=== PATIENT | male | born 1925 | race Caucasian/White ===

== ENCOUNTER 2017-01-24 11:17 | Emergency (ER) | payer MEDICARE ==
[2017-01-24 11:29] VITALS: RESP 18
[2017-01-24] MEDS ORDERED: SODIUM CHLORIDE 0.9% 1,000 ML IV STA (12:09)
[2017-01-24] MEDS ORDERED: MECLIZINE 12.5 MG TAB PO STA (12:10)
--- NOTE | 2017-01-24 12:13 | ED ---
General Adult HPI - General Chief complaint: Dizziness Stated complaint: Dizziness Time Seen by Provider: 01/24/17 11:35 Source: patient, family, RN notes reviewed Mode of arrival: wheelchair Limitations: no limitations - History of Present Illness Initial comments: Patient is a pleasant 89-year-old male presenting to the emergency department complaining of dizziness. Onset was this morning when he got out of bed. Patient feels lightheaded. Patient feels somewhat off balance. Patient has had some mild right-sided thorax discomfort underneath the armpit. Patient states this is only with movement. No dyspnea. No fevers. Patient did have some right inguinal discomfort this morning that was a shooting discomfort however that has resolved. No weakness. No confusion. No visual changes. No fever. - Related Data Home Medications Medication Instructions Recorded Confirmed Acetaminophen-Codeine 300-30mg 1 tab PO Q6H PRN 01/24/17 01/24/17 [Tylenol #3] Atorvastatin [Lipitor] 20 mg PO HS 01/24/17 01/24/17 HYDROcodone/APAP 5-325MG [[place] 1 tab PO TID PRN 01/24/17 01/24/17 5-325] Melatonin 5 mg PO HS 01/24/17 01/24/17 Oxybutynin Chloride [Ditropan] 5 mg PO HS 01/24/17 01/24/17 Valsartan [Diovan] 80 mg PO DAILY 01/24/17 01/24/17 metFORMIN HCL [Glucophage] 1,000 mg PO BID 01/24/17 01/24/17 Previous Rx's Medication Instructions Recorded Meclizine [Antivert] 25 mg PO TID PRN #12 tab 01/24/17 Allergies Allergy/AdvReac Type Severity Reaction Status Date / Time aspirin Allergy Rash/Hives Verified 01/24/17 12:33 Penicillins Allergy Rash/Hives Verified 01/24/17 12:33 Review of Systems ROS Statement: Those systems with pertinent positive or pertinent negative responses have been documented in the HPI. ROS Other: All systems not noted in ROS Statement are negative. Constitutional: Denies: fever Eyes: Denies: eye pain ENT: Denies: ear pain Respiratory: Denies: cough Cardiovascular: Denies: palpitations Endocrine: Denies: fatigue Gastrointestinal: Denies: abdominal pain Genitourinary: Denies: urgency Musculoskeletal: Denies: back pain Skin: Denies: rash Neurological: Reports: vertigo. Denies: headache, weakness, numbness, paresthesias, confusion Past Medical History Past Medical History: Cancer, Diabetes Mellitus, Hyperlipidemia, Hypertension, Prostate Disorder History of Any Multi-Drug Resistant Organisms: None Reported Past Surgical History: Back Surgery, Hernia Repair Additional Past Surgical History / Comment(s): yumi eye surgery, Past Psychological History: No Psychological Hx Reported Smoking Status: Former smoker Past Alcohol Use History: None Reported Past Drug Use History: None Reported General Exam Limitations: no limitations General appearance: alert, in no apparent distress Head exam: Present: atraumatic Eye exam: Present: PERRL, EOMI. Absent: nystagmus ENT exam: Present: normal oropharynx Neck exam: Present: normal inspection Respiratory exam: Present: normal lung sounds bilaterally. Absent: chest wall tenderness Cardiovascular Exam: Present: regular rate, normal rhythm GI/Abdominal exam: Present: soft, other (Patient has minimal fullness to the right inguinal region that is reducible. Patient states this was the area of discomfort.). Absent: distended, tenderness Extremities exam: Present: normal inspection, full ROM. Absent: tenderness, pedal edema, calf tenderness Neurological exam: Present: alert, CN II-XII intact. Absent: motor sensory deficit Expanded Speech: Present: fluid speech Cranial nerves: EOM's Intact: Normal, Facial Sensation: Normal Sensory exam: Upper Extremity Light Touch: Normal, Lower Extremity Light Touch: Normal Motor strength exam: RUE: 5, LUE: 5, RLE: 5, LLE: 5 Eye Response: (4) open spontaneously Motor Response: (6) obeys commands Verbal Response: (5) oriented Psychiatric exam: Present: normal affect, normal mood Skin exam: Absent: rash Course Vital Signs 01/24/17 01/24/17 01/24/17 11:24 12:16 12:43 Temperature 97.9 F Pulse Rate 70 70 Pulse Rate [ 76 Sitting] Pulse Rate [ 78 Standing] Pulse Rate [ 71 Supine] Respiratory 18 18 Rate Blood Pressure 144/64 133/60 Blood Pressure 124/59 [Right Arm Supine] Blood Pressure 124/63 [Sitting] Blood Pressure 131/63 [Standing] O2 Sat by Pulse 97 97 Oximetry 01/24/17 13:37 Temperature Pulse Rate 66 Pulse Rate [ Sitting] Pulse Rate [ Standing] Pulse Rate [ Supine] Respiratory Rate Blood Pressure 122/66 Blood Pressure [Right Arm Supine] Blood Pressure [Sitting] Blood Pressure [Standing] O2 Sat by Pulse 97 Oximetry - Reevaluation(s) Reevaluation #1: 01/24/17 14:43 Perc score of 1 showing low probability EKG Findings - EKG Comments: EKG Findings:: Normal sinus rhythm 74. Normal intervals. Normal axis. Normal QRS. Normal ST-T. Medical Decision Making - Medical Decision Making Patient reevaluated and resting comfortably in bed. Patient symptom-free at this time. Patient did get up and walk to the restroom without any difficulty. Patient did demonstrate steady gait in the emergency Department as well. Patient and family updated on results and need for follow-up. Case was also discussed in detail with Dr. Hadley who is agreeable with discharge and will follow-up with this patient. - Lab Data Result diagrams: 01/24/17 12:00 01/24/17 12:00 Lab Results 01/24/17 01/24/17 01/24/17 Range/Units 12:00 12:00 12:00 WBC 5.6 (3.8-10.6) k/uL RBC 3.69 L (4.30-5.90) m/uL Hgb 11.3 L (13.0-17.5) gm/dL Hct 35.4 L (39.0-53.0) % MCV 95.9 (80.0-100.0) fL MCH 30.6 (25.0-35.0) pg MCHC 31.9 (31.0-37.0) g/dL RDW 13.3 (11.5-15.5) % Plt Count 149 L (150-450) k/uL Neutrophils % 60 % Lymphocytes % 27 % Monocytes % 8 % Eosinophils % 2 % Basophils % 1 % Neutrophils # 3.4 (1.3-7.7) k/uL Lymphocytes # 1.5 (1.0-4.8) k/uL Monocytes # 0.5 (0-1.0) k/uL Eosinophils # 0.1 (0-0.7) k/uL Basophils # 0.0 (0-0.2) k/uL PT 10.8 (9.0-12.0) sec INR 1.1 (<1.1) Sodium 141 (137-145) mmol/L Potassium 4.5 (3.5-5.1) mmol/L Chloride 103 (98-107) mmol/L Carbon Dioxide 27 (22-30) mmol/L Anion Gap 11 mmol/L BUN 26 H (9-20) mg/dL Creatinine 0.99 (0.66-1.25) mg/dL Est GFR (MDRD) Af Amer >60 (>60 ml/min/1.73 sqM) Est GFR (MDRD) Non-Af >60 (>60 ml/min/1.73 sqM) Glucose 187 H (74-99) mg/dL Calcium 8.9 (8.4-10.2) mg/dL Total Bilirubin 0.4 (0.2-1.3) mg/dL AST 7 L (17-59) U/L ALT 28 (21-72) U/L Alkaline Phosphatase 44 (38-126) U/L Troponin I (0.000-0.034) ng/mL Total Protein 6.5 (6.3-8.2) g/dL Albumin 3.7 (3.5-5.0) g/dL Urine Color Urine Appearance (Clear) Urine pH (5.0-8.0) Ur Specific [place] (1.001-1.035) Urine Protein (Negative) Urine Glucose (UA) (Negative) Urine Ketones (Negative) Urine Blood (Negative) Urine Nitrite (Negative) Urine Bilirubin (Negative) Urine Urobilinogen (<2.0) mg/dL Ur Leukocyte Esterase (Negative) Urine RBC (0-5) /hpf Urine WBC (0-5) /hpf Urine Mucus (None) /hpf 01/24/17 01/24/17 Range/Units 12:00 12:00 WBC (3.8-10.6) k/uL RBC (4.30-5.90) m/uL Hgb (13.0-17.5) gm/dL Hct (39.0-53.0) % MCV (80.0-100.0) fL MCH (25.0-35.0) pg MCHC (31.0-37.0) g/dL RDW (11.5-15.5) % Plt Count (150-450) k/uL Neutrophils % % Lymphocytes % % Monocytes % % Eosinophils % % Basophils % % Neutrophils # (1.3-7.7) k/uL Lymphocytes # (1.0-4.8) k/uL Monocytes # (0-1.0) k/uL Eosinophils # (0-0.7) k/uL Basophils # (0-0.2) k/uL PT (9.0-12.0) sec INR (<1.1) Sodium (137-145) mmol/L Potassium (3.5-5.1) mmol/L Chloride (98-107) mmol/L Carbon Dioxide (22-30) mmol/L Anion Gap mmol/L BUN (9-20) mg/dL Creatinine (0.66-1.25) mg/dL Est GFR (MDRD) Af Amer (>60 ml/min/1.73 sqM) Est GFR (MDRD) Non-Af (>60 ml/min/1.73 sqM) Glucose (74-99) mg/dL Calcium (8.4-10.2) mg/dL Total Bilirubin (0.2-1.3) mg/dL AST (17-59) U/L ALT (21-72) U/L Alkaline Phosphatase (38-126) U/L Troponin I <0.012 (0.000-0.034) ng/mL Total Protein (6.3-8.2) g/dL Albumin (3.5-5.0) g/dL Urine Color Light Yellow Urine Appearance Clear (Clear) Urine pH 5.0 (5.0-8.0) Ur Specific [place] 1.009 (1.001-1.035) Urine Protein Negative (Negative) Urine Glucose (UA) 1+ H (Negative) Urine Ketones Negative (Negative) Urine Blood Negative (Negative) Urine Nitrite Negative (Negative) Urine Bilirubin Negative (Negative) Urine Urobilinogen <2.0 (<2.0) mg/dL Ur Leukocyte Esterase Small H (Negative) Urine RBC <1 (0-5) /hpf Urine WBC 3 (0-5) /hpf Urine Mucus Rare H (None) /hpf - Radiology Data Radiology results: image reviewed (Computed tomography scan shows no acute process. Two-view chest x-ray shows asbestosis related disease.) Disposition Clinical Impression: Lightheadedness Disposition: HOME SELF-CARE Condition: Stable Instructions: Dizziness (ED) Additional Instructions: Please follow-up with Dr. Hadley in the next day or 2 for recheck. Return for difficulty breathing, increased pain, unable to walk, weakness or confusion , worsening symptoms or other concerns. Prescriptions: Meclizine [Antivert] 25 mg PO TID PRN #12 tab PRN Reason: dizziness Referrals: Venu Hadley MD [Primary Care Provider] - 1-2 days
[2017-01-24 12:20] LABS: Basophils % (A) 1 %; CH 30.6; CHCM 32.1; Eosinophils # (A) 0.1 k/uL (0-0.7); Eosinophils % (A) 2 %; HCT 35.4 % (39.0-53.0); HDW 2.46; HGB 11.3 gm/dL (13.0-17.5); Luc # (Auto) 0.13; Luc % (Auto) 2; Lymphocytes # (A) 1.5 k/uL (1.0-4.8); Lymphocytes % (A) 27 %; MCH 30.6 pg (25.0-35.0); MCHC 31.9 g/dL (31.0-37.0); MCV 95.9 fL (80.0-100.0); Mean Platelet Volume 10.2; Monocytes # (A) 0.5 k/uL (0-1.0); Monocytes % (A) 8 %; Neutrophils # (A) 3.4 k/uL (1.3-7.7); Neutrophils % (A) 60 %; RBC 3.69 m/uL (4.30-5.90); RDW 13.3 % (11.5-15.5); WBC 5.6 k/uL (3.8-10.6); WBC (Perox) 5.33
[2017-01-24 12:25] LABS: INR 1.1 (<1.1); Prothrombin Time 10.8 sec (9.0-12.0)
[2017-01-24 12:44] LABS: ALT 28 U/L (21-72); AST 7 U/L (17-59); Alkaline Phosphatase 44 U/L (38-126); Anion Gap 11 mmol/L; Blood Urea Nitrogen 26 mg/dL (9-20); Calcium 8.9 mg/dL (8.4-10.2); Carbon Dioxide 27 mmol/L (22-30); Chloride 103 mmol/L (98-107); Glucose 187 mg/dL (74-99); Non-African American GFR(MDRD) >60 (>60 ml/min/1.73 sqM); Potassium 4.5 mmol/L (3.5-5.1); Sodium 141 mmol/L (137-145); Total Bilirubin 0.4 mg/dL (0.2-1.3); Total Protein 6.5 g/dL (6.3-8.2)
[2017-01-24 12:46] LABS: Appearance,Urine Clear (Clear); Bilirubin,Urine Negative (Negative); Glucose,Urine (UA) 1+ (Negative); Ketones,Urine Negative (Negative); Leukocyte Esterase,Urine Small (Negative); Mucus,Urine Rare /hpf; Nitrite,Urine Negative (Negative); Particle Count 623; Protein,Urine Negative (Negative); RBC,Urine <1 /hpf (0-5); Specific Gravity,Urine 1.009 (1.001-1.035); UA Billing (MACRO vs. MICRO) MICRO; Urobilinogen,Urine <2.0 mg/dL (<2.0); WBC,Urine 3 /hpf (0-5)
--- NOTE | 2017-01-24 12:46 | CT ---
EXAMINATION TYPE: CT brain wo con DATE OF EXAM: 01/24/2017 12:35 PM COMPARISON: Prior head CT second of May 2011 HISTORY: Altered mental status CT DLP: 1024.1 mGycm Automated exposure control for dose reduction was used. FINDINGS: There is no acute intracranial hemorrhage, mass effect, or midline shift identified. The ventricles and sulci are within normal limits in size. Periventricular white matter demyelination changes are a gain seen. Cortical atrophy is stable. The globes are intact and the visualized sinuses are clear. IMPRESSION: No acute intracranial hemorrhage, mass effect, or midline shift is seen.
--- NOTE | 2017-01-24 12:51 | XR ---
EXAMINATION TYPE: XR chest 2V DATE OF EXAM: 01/24/2017 12:40 PM COMPARISON: Chest CT July HISTORY: Chest pain, Asbestosis TECHNIQUE: Frontal and lateral views of the chest are obtained. FINDINGS: Extensive calcified pleural plaques are again noted. No pneumothorax or pleural effusion i s evident. Heart size is stable. No evident pneumonia, postop change noted to the left shoulder, arth ropathy the right shoulder and there are overlying cardiac leads, IMPRESSION: Asbestos related disease.
[2017-01-24 15:07] VITALS: BP 136/62; PULSE 70; TEMP 97.4
== END 2017-01-24 15:05 | disposition home or self-care (01) ==
LOC: EC 11:17
DX: R42 Dizziness and giddiness (principal); E11.9 Type 2 diabetes mellitus without complications; E78.5 Hyperlipidemia, unspecified; I10 Essential (primary) hypertension; N42.9 Disorder of prostate, unspecified; Z85.9 Personal history of malignant neoplasm, unspecified; Z88.6 Allergy status to analgesic agent; Z88.0 Allergy status to penicillin; Z87.891 Personal history of nicotine dependence; Z79.84 Long term (current) use of oral hypoglycemic drugs; Z79.899 Other long term (current) drug therapy
CPT/HCPCS: 36415; 70450; 71020; 80053; 81001; 84484; 85025; 85610; 93005; 96360; 96361; 99284

== ENCOUNTER → 2017-01-26 | Outpatient (CLI) | payer MEDICARE ==
--- NOTE | 2017-01-26 15:55 | CT ---
EXAMINATION TYPE: CT chest w con DATE OF EXAM: 01/26/2017 3:47 PM COMPARISON: 07/14/2013 HISTORY: Chest discomfort CT DLP: 514.2 mGycm, Automated exposure control for dose reduction was used. CONTRAST: Performed injected with 100 mL of Omnipaque 300. TECHNIQUE: Axial images were obtained at 5 mm thick sections. Reconstructed images are reviewed on [place] computer in the coronal plane. Artifact limits portions of the evaluation from a left shoulder prosthesis. FINDINGS: Portion of the thyroid visualized is normal. There is some streak opacity within the lingula. This appears to be near pleural plaquing and could b e related to scarring. This was present 2012. Calcifications along the right diaphragm compatible wit h asbestos exposure. A 1.4 cm subcarinal lymph node is present adjacent to the aorta. Note is made of coronary artery jarod cification. Pleural plaquing is present bilaterally. No enlarged mediastinal or hilar adenopathy is e vident. The ascending aorta diameter at the level of the main pulmonary artery is 3.5 cm. The main p ulmonary artery diameter at the bifurcation is 2.[address] sections are obtained through the upper abdomen. Abdomen is essentially unremarkable. IMPRESSIONS: 1. Calcified pleural plaquing, calcification along the diaphragms compatible with prior asbestos expo sure. 2. 1.4 cm subcarinal lymph node which is a new finding from 2012
== END ==
LOC: RADCTMAIN 14:52
PROVIDERS: ATTEND Internal Medicine Critical Care Medicine
DX: J92.0 Pleural plaque with presence of asbestos (principal)
CPT/HCPCS: 71260; Q9967

== ENCOUNTER 2017-01-31 10:53 | Emergency (ER) | payer MEDICARE ==
[2017-01-31 11:06] VITALS: RESP 18
[2017-01-31] MEDS ORDERED: HYDROcodone/APAP 5-325MG 1 EACH TAB PO STA (14:04)
--- NOTE | 2017-01-31 14:19 | ED ---
General Adult HPI - General Chief complaint: Abdominal Pain Stated complaint: prostate pain Time Seen by Provider: 01/31/17 13:27 Source: patient, RN notes reviewed Mode of arrival: ambulatory Limitations: no limitations - History of Present Illness Initial comments: Patient is an 89-year-old male who presents emergency room today with chief complaint of bilateral hip pain. He does admit that it was worse last night. States had a difficult time laying on his hip. He states he couldn't lay on his back without difficulty. He states charcoal over had increased pain. Patient states concerned because he was recently diagnosed prostate cancer. He is unsure if this is related. Patient does admit that he did take his pain medication of M[place]le[place]. States took 1 3 in the morning along with 9:00. Patient does admit that does help the pain. He states pain seems to come back at this time. States has been 5 hours since last dose. Patient denies any bowel or bladder incontinence retention. He denies any saddle anesthesia. He does admit some bilateral burning sensation to the top of the right thigh. Patient denies any other complaints or symptoms. Patient denies any recent fever, chills, shortness of breath, chest pain, back pain, abdominal pain, nausea or vomiting, dysuria or hematuria, constipation or diarrhea, headaches or visual changes, or any other complaints. - Related Data Home Medications Medication Instructions Recorded Confirmed Acetaminophen-Codeine 300-30mg 1 tab PO Q6H PRN 01/24/17 01/31/17 [Tylenol #3] Atorvastatin [Lipitor] 20 mg PO HS 01/24/17 01/31/17 HYDROcodone/APAP 5-325MG [[place] 1 tab PO TID PRN 01/24/17 01/31/17 5-325] Melatonin 5 mg PO HS 01/24/17 01/31/17 Oxybutynin Chloride [Ditropan] 5 mg PO HS 01/24/17 01/31/17 Valsartan [Diovan] 80 mg PO DAILY 01/24/17 01/31/17 metFORMIN HCL [Glucophage] 1,000 mg PO BID 01/24/17 01/31/17 Previous Rx's Medication Instructions Recorded Meclizine [Antivert] 25 mg PO TID PRN #12 tab 01/24/17 Allergies Allergy/AdvReac Type Severity Reaction Status Date / Time aspirin Allergy Rash/Hives Verified 01/31/17 13:49 Penicillins Allergy Rash/Hives Verified 01/31/17 13:49 Review of Systems ROS Statement: Those systems with pertinent positive or pertinent negative responses have been documented in the HPI. ROS Other: All systems not noted in ROS Statement are negative. Past Medical History Past Medical History: Cancer, Diabetes Mellitus, Hyperlipidemia, Hypertension, Prostate Disorder History of Any Multi-Drug Resistant Organisms: None Reported Past Surgical History: Back Surgery, Hernia Repair Additional Past Surgical History / Comment(s): yumi eye surgery, shoulder Past Psychological History: No Psychological Hx Reported Smoking Status: Former smoker Past Alcohol Use History: None Reported Past Drug Use History: None Reported General Exam - General Exam Comments Initial Comments: General: The patient is awake and alert, in no distress, and does not appear acutely ill. Eye: Pupils are equal, round and reactive to light, extra-ocular movements are intact. No nystagmus. There is normal conjunctiva bilaterally. No signs of icterus. Ears, nose, mouth and throat: There are moist mucous membranes and no oral lesions. Neck: The neck is supple, there is no tenderness or JVD. Cardiovascular: There is a regular rate and rhythm. No murmur, rub or gallop is appreciated. Respiratory: Lungs are clear to auscultation, respirations are non-labored, breath sounds are equal. No wheezes, stridor, rales, or rhonchi. Gastrointestinal: Soft, non-distended, non-tender abdomen without masses or organomegaly noted. There is no rebound or guarding present. No CVA tenderness. Bowel sounds are unremarkable. Musculoskeletal: No appearance of the thoracic, lumbar spine. No step-offs forms appreciated. Negative straight leg raise test. Normal gait. 5/5. Sensation intact. Pulses equal bilaterally 2+. Neurological: A&O x 3. CN II-XII intact, There are no obvious motor or sensory deficits. Coordination appears grossly intact. Speech is normal. Skin: Skin is warm and dry and no rashes or lesions are noted. Psychiatric: Cooperative, appropriate mood & affect, normal judgment. Limitations: no limitations Course Vital Signs 01/31/17 11:03 Temperature 97.9 F Pulse Rate 75 Respiratory 18 Rate Blood Pressure 121/59 O2 Sat by Pulse 96 Oximetry Medical Decision Making - Medical Decision Making Lungs/patient and family nurse at bedside about pain. Patient does admit that he had recent x-rays obtained at [facility] emergency room approximately 2-3 weeks ago. Patient does admit that his follow up his family doctor also with the urologist . Patient does admit that he was told that he had prostate cancer. Patient was recommended that we could do CAT scan or x-rays here in the emergency room. He states had anything down. Patient advised to increase Mcclelland from every 6 hours to every 4-6 hours as needed for pain 10/21. Advised follow-up the family doctor in the next 2 days. Advised return if any symptoms increase or worsen or for any other concerns. Disposition Clinical Impression: Hip pain Disposition: HOME SELF-CARE Condition: Good Instructions: Hip Pain (ED) Additional Instructions: Please use 1 tablet of M[place] every 4-6 hours as needed for your pain as discussed. Please follow-up the family doctor in the next 2 days. Please return to emergency room for any other concerns. Time of Disposition: 14:19
--- NOTE | 2017-01-31 14:47 | ED ---
Medical Decision Making - Medical Decision Making Long conversation was had with patient about any imaging studies here. Prior to being discharged patient did go to the bathroom and noticed hematuria. States never had this in the past. Was discussed this this could be due to prostate issues he does admit that his had a weak stream. Patient was advised that we could do CT along with urinalysis to rule out infection. He is in agreement with this plan at this time. Patient's CT reviewed and does show 1. Hyperdensity within the lateral aspect of the head of the pancreas may be artifact with some limits. 2. Probable prostate. 3. Sigmoid diverticulosis without evidence of acute epididymitis. 4. 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 Patient does admit to history of asbestos exposure. States this is not a new finding for him. Patient advised to follow-up about possible artifact or hypodensity seen in the pancreas. Patient's urinalysis reviewed does show hematuria no sign of infection. Is advised to follow-up with the urologist. Advised to return for any other concerns. - Lab Data Lab Results 01/31/17 Range/Units 15:00 Urine Color Light Yellow Urine Appearance Clear (Clear) Urine pH 5.5 (5.0-8.0) Ur Specific [place] 1.007 (1.001-1.035) Urine Protein Negative (Negative) Urine Glucose (UA) Negative (Negative) Urine Ketones Negative (Negative) Urine Blood Moderate H (Negative) Urine Nitrite Negative (Negative) Urine Bilirubin Negative (Negative) Urine Urobilinogen <2.0 (<2.0) mg/dL Ur Leukocyte Esterase Small H (Negative) Urine RBC 18 H (0-5) /hpf Urine WBC 3 (0-5) /hpf Urine Mucus Rare H (None) /hpf Disposition Clinical Impression: Hip pain, Hematuria Disposition: HOME SELF-CARE Condition: Good Instructions: Hip Pain (ED) Additional Instructions: Please use 1 tablet of [place] every 4-6 hours as needed for your pain as discussed. Please follow-up the family doctor in the next 2 days. Please return to emergency room for any other concerns. Referrals: Venu Hadley MD [Primary Care Provider] - 1-2 days Time of Disposition: 16:31
[2017-01-31 15:18] LABS: Appearance,Urine Clear (Clear); Bilirubin,Urine Negative (Negative); Glucose,Urine (UA) Negative (Negative); Ketones,Urine Negative (Negative); Leukocyte Esterase,Urine Small (Negative); Mucus,Urine Rare /hpf; Nitrite,Urine Negative (Negative); PH, Urine 5.5 (5.0-8.0); Particle Count 1100; Protein,Urine Negative (Negative); RBC,Urine 18 /hpf (0-5); Specific Gravity,Urine 1.007 (1.001-1.035); UA Billing (MACRO vs. MICRO) MICRO; Urobilinogen,Urine <2.0 mg/dL (<2.0); WBC,Urine 3 /hpf (0-5)
[2017-01-31 15:52] VITALS: BP 157/75; PULSE 74; TEMP 98.9
--- NOTE | 2017-01-31 16:21 | CT ---
EXAMINATION TYPE: CT abdomen pelvis wo con DATE OF EXAM: 01/31/2017 3:30 PM COMPARISON: 11/25/2011 INDICATION: Abdominal pain DLP: 699.3 mGycm, Automated exposure control for dose reduction was used. CONTRAST: 0 mL of Omnipaque 300. Study performed without Oral Contrast TECHNIQUE: Axial images were obtained from above the diaphragm to the pubic rami in the axial plane a t 5 mm thick sections. Reconstructed images are reviewed on the computer in the coronal plane. FINDINGS: Limited CT sections are obtained the lung bases. Pleural calcification along the anterior right lung base and posterior medial left and right lung bases. Some calcification along the left diaphragm and within the right diaphragm. Coronary artery calcification is present.. CT ABDOMEN: Liver: Normal Spleen: Normal Pancreas: There is some hypodensity within the lateral aspect of the head of the pancreas. Series 8 i mage 49. This may be artifact not identified on additional images. Adrenal glands: The adrenal glands are normal. Gallbladder: Normal Kidneys: No masses are evident. No hydronephrosis is present. Some peripelvic cyst may be present w ithin the left kidney. Left kidney may be somewhat atrophic. Aorta: Vascular calcification is within the aorta. Inferior vena cava: Normal. CT PELVIS: Loops of bowel within the abdomen and pelvis are normal. Fecal debris is within the colon. Few di verticuli within the sigmoid colon. No acute diverticulitis is evident. Appendix: Normal as visualized. Urinary bladder: Normal. Inferior impression from the prostate is evident. Genitourinary structures: Prostate is prominent. Osseous structures: Degenerative changes are through the spine. Suspicious lytic lesions are not iden tified. Facet changes are evident. There is a sclerotic area within the medial left iliac wing. Degen erative changes are at the hips IMPRESSIONS: 1. Hypodensity within the lateral aspect of the head of the pancreas may be artifact from a single i mage. Consider correlation with follow-up ultrasound. 2. Prominent prostate. 3. Sigmoid diverticulosis without acute diverticulitis. 4. Chronic pleural calcifications. This could be related to prior asbestos exposure.
== END 2017-01-31 16:41 | disposition home or self-care (01) ==
LOC: EC 10:53
DX: M25.551 Pain in right hip (principal); M25.552 Pain in left hip; R31.9 Hematuria, unspecified; E78.5 Hyperlipidemia, unspecified; I10 Essential (primary) hypertension; E11.9 Type 2 diabetes mellitus without complications; Z85.46 Personal history of malignant neoplasm of prostate; Z88.6 Allergy status to analgesic agent; Z88.0 Allergy status to penicillin; Z79.84 Long term (current) use of oral hypoglycemic drugs; Z87.891 Personal history of nicotine dependence; Z79.899 Other long term (current) drug therapy
CPT/HCPCS: 74176; 81001; 87086; 99284

== ENCOUNTER 2017-02-09 04:54 | Inpatient (IN) | payer MEDICARE ==
[2017-02-09] MEDS ORDERED: ACETAMINOPHEN TAB 325 MG TAB PO STA (05:28)
[2017-02-09 05:37] LABS: CH 30.8; CHCM 33.4; Immature Gran Flag Slight; MCH 30.9 pg (25.0-35.0); MCHC 33.4 g/dL (31.0-37.0); MCV 92.6 fL (80.0-100.0); Mean Platelet Volume 9.9; RBC 3.56 m/uL (4.30-5.90); WBC 10.7 k/uL (3.8-10.6); WBC (Perox) 10.87
[2017-02-09 05:45] LABS: INR 1.1 (<1.1); Partial Thromboplastin Time 25.2 sec (22.0-30.0)
--- NOTE | 2017-02-09 05:46 | ED ---
Weakness HPI <Garrison Azul - Last Filed: 02/09/17 08:25> - General Source: patient Mode of arrival: EMS Limitations: no limitations - History of Present Illness MD Complaint: generalized weakness, lack of energy, difficulty walking -: days(s) Location: generalized Consistency: constant Improves with: none Worsens with: none Context: history of similar Associated Symptoms: confusion, loss of appetite <Owen Price - Last Filed: 02/12/17 20:47> - General Chief complaint: Weakness Stated complaint: Weakness Time Seen by Provider: 02/09/17 05:27 - History of Present Illness Initial comments: Patient is an 89-year-old man brought to the emergency department be evaluated for increasing weakness and inability to walk. Patient has been feeling weak for number days. Family attributes this to the steroids she has been using to treat some low back pain. They tried holding the medication yesterday and there was a little bit of improvement, but then overnight he has been unable to get out of bed. Patient denies having focal weakness. He states that it is both legs that will not support him and that he is not walk. Patient is denying pain to legs. He does have some low back pain which has been going on for over a week. In addition, the patient has had a bit of a cough which is nonproductive. He is denying other symptoms. (Owen Price) - Related Data Home Medications Medication Instructions Recorded Confirmed Acetaminophen-Codeine 300-30mg 1 tab PO Q6H PRN 01/24/17 02/09/17 [Tylenol #3] Atorvastatin [Lipitor] 20 mg PO HS 01/24/17 02/09/17 HYDROcodone/APAP 5-325MG [[place] 1 tab PO TID PRN 01/24/17 02/09/17 5-325] Melatonin 5 mg PO HS 01/24/17 02/09/17 Oxybutynin Chloride [Ditropan] 5 mg PO HS 01/24/17 02/09/17 Valsartan [Diovan] 80 mg PO DAILY 01/24/17 02/09/17 metFORMIN HCL [Glucophage] 1,000 mg PO BID 01/24/17 02/09/17 Aspirin [Adult Low Dose Aspirin EC] 81 mg PO DAILY 02/09/17 02/09/17 Cyclobenzaprine [Flexeril] 5 mg PO TID 02/09/17 02/09/17 Gabapentin [Neurontin] 300 mg PO TID 02/09/17 02/09/17 Vicks Zzz-Quil Capsules 1 cap PO HS PRN 02/09/17 02/09/17 predniSONE See Taper PO DIRECTED 02/09/17 02/09/17 Allergies Allergy/AdvReac Type Severity Reaction Status Date / Time aspirin Allergy Rash/Hives Verified 02/09/17 12:13 Penicillins Allergy Rash/Hives Verified 02/09/17 07:25 Review of Systems ROS Other: All systems not noted in ROS Statement are negative. <Garrison Azul - Last Filed: 02/09/17 08:25> ROS Other: All systems not noted in ROS Statement are negative. Constitutional: Reports: weakness. Denies: fever, chills Eyes: Denies: vision change Respiratory: Denies: cough, dyspnea Cardiovascular: Denies: chest pain (Generalized), palpitations, orthopnea, edema Gastrointestinal: Denies: abdominal pain, vomiting, diarrhea Genitourinary: Denies: dysuria, hematuria Musculoskeletal: Reports: as per HPI, back pain Skin: Denies: rash Neurological: Reports: weakness (Generalized). Denies: headache, numbness, paresthesias <Owen Price - Last Filed: 02/12/17 20:47> ROS Statement: Those systems with pertinent positive or pertinent negative responses have been documented in the HPI. Past Medical History Past Medical History: Cancer, Diabetes Mellitus, Hyperlipidemia, Hypertension, Prostate Disorder History of Any Multi-Drug Resistant Organisms: None Reported Past Surgical History: Back Surgery, Hernia Repair Additional Past Surgical History / Comment(s): yumi eye surgery, shoulder Past Psychological History: No Psychological Hx Reported Smoking Status: Former smoker Past Alcohol Use History: None Reported Past Drug Use History: None Reported <Owen Price - Last Filed: 02/12/17 20:47> General Exam Limitations: no limitations General appearance: alert, in distress Head exam: Present: atraumatic, normocephalic Eye exam: Present: normal appearance. Absent: scleral icterus, conjunctival injection ENT exam: Present: mucous membranes dry Neck exam: Present: normal inspection, full ROM Respiratory exam: Present: rhonchi. Absent: respiratory distress, wheezes, rales, accessory muscle use, decreased breath sounds, prolonged expiratory Cardiovascular Exam: Present: normal rhythm, tachycardia, normal heart sounds. Absent: systolic murmur, diastolic murmur, rubs, gallop GI/Abdominal exam: Present: soft. Absent: distended, tenderness, guarding, rebound, mass Extremities exam: Present: normal inspection, normal capillary refill. Absent: pedal edema, calf tenderness Back exam: Present: normal inspection. Absent: CVA tenderness (R), CVA tenderness (L) Neurological exam: Present: alert, oriented X3, CN II-XII intact. Absent: motor sensory deficit Skin exam: Present: warm, dry, intact, normal color. Absent: rash <Owen Price - Last Filed: 02/12/17 20:47> EKG Findings - EKG Results: EKG: interpreted by ERMD, sinus rhythm, normal axis, normal QRS, normal ST/T, no acute changes EKG shows: tachycardia (Rate approximately 107 bpm) <Owen Price - Last Filed: 02/12/17 20:47> Medical Decision Making - Lab Data Result diagrams: 02/09/17 05:06 02/09/17 05:06 <Garrison Azul - Last Filed: 02/09/17 08:25> - Lab Data Result diagrams: 02/12/17 05:25 02/12/17 05:25 <Owen Price - Last Filed: 02/12/17 20:47> - Medical Decision Making I spoke with Dr. Sanchez and Dr. Hadley prior to admission (Garrison Azul) - Lab Data Lab Results 02/09/17 02/09/17 02/09/17 Range/Units 05:06 05:06 05:06 WBC 10.7 H (3.8-10.6) k/uL RBC 3.56 L (4.30-5.90) m/uL Hgb 11.0 L (13.0-17.5) gm/dL Hct 33.0 L (39.0-53.0) % MCV 92.6 (80.0-100.0) fL MCH 30.9 (25.0-35.0) pg MCHC 33.4 (31.0-37.0) g/dL RDW 13.0 (11.5-15.5) % Plt Count 161 (150-450) k/uL Neutrophils % (Manual) 82.0 % Band Neutrophils % 3.0 % Lymphocytes % (Manual) 8.0 % Monocytes % (Manual) 7.0 % Neutrophils # (Manual) 9.1 H (1.3-7.7) k/uL Lymphocytes # (Manual) 0.9 L (1.0-4.8) k/uL Monocytes # (Manual) 0.7 (0-1.0) k/uL Nucleated RBCs 0 (0-0) /100 WBC Manual Slide Review Performed PT (9.0-12.0) sec INR (<1.1) APTT (22.0-30.0) sec Sodium 136 L (137-145) mmol/L Potassium 4.3 (3.5-5.1) mmol/L Chloride 102 (98-107) mmol/L Carbon Dioxide 22 (22-30) mmol/L Anion Gap 12 mmol/L BUN 44 H (9-20) mg/dL Creatinine 1.63 H (0.66-1.25) mg/dL Est GFR (MDRD) Af Amer 49 (>60 ml/min/1.73 sqM) Est GFR (MDRD) Non-Af 40 (>60 ml/min/1.73 sqM) Glucose 165 H (74-99) mg/dL Estimated Ave Glu mg/dL mg/dL Hemoglobin A1c (4.2-6.1) % Plasma Lactic Acid Renzo 4.6 H* (0.7-2.0) mmol/L Calcium 8.8 (8.4-10.2) mg/dL Magnesium 1.8 (1.6-2.3) mg/dL Total Bilirubin 0.7 (0.2-1.3) mg/dL AST 43 (17-59) U/L ALT 38 (21-72) U/L Alkaline Phosphatase 46 (38-126) U/L Troponin I (0.000-0.034) ng/mL NT-Pro-B Natriuret Pep pg/mL Total Protein 6.1 L (6.3-8.2) g/dL Albumin 3.3 L (3.5-5.0) g/dL Urine Color Urine Appearance (Clear) Urine pH (5.0-8.0) Ur Specific [place] (1.001-1.035) Urine Protein (Negative) Urine Glucose (UA) (Negative) Urine Ketones (Negative) Urine Blood (Negative) Urine Nitrite (Negative) Urine Bilirubin (Negative) Urine Urobilinogen (<2.0) mg/dL Ur Leukocyte Esterase (Negative) Urine RBC (0-5) /hpf Ur Squamous Epith Cells (0-4) /hpf Amorphous Sediment (None) /hpf Granular Casts (0) /lpf Urine Mucus (None) /hpf 02/09/17 02/09/17 02/09/17 Range/Units 05:06 05:06 05:06 WBC (3.8-10.6) k/uL RBC (4.30-5.90) m/uL Hgb (13.0-17.5) gm/dL Hct (39.0-53.0) % MCV (80.0-100.0) fL MCH (25.0-35.0) pg MCHC (31.0-37.0) g/dL RDW (11.5-15.5) % Plt Count (150-450) k/uL Neutrophils % (Manual) % Band Neutrophils % % Lymphocytes % (Manual) % Monocytes % (Manual) % Neutrophils # (Manual) (1.3-7.7) k/uL Lymphocytes # (Manual) (1.0-4.8) k/uL Monocytes # (Manual) (0-1.0) k/uL Nucleated RBCs (0-0) /100 WBC Manual Slide Review PT 11.0 (9.0-12.0) sec INR 1.1 (<1.1) APTT 25.2 (22.0-30.0) sec Sodium (137-145) mmol/L Potassium (3.5-5.1) mmol/L Chloride (98-107) mmol/L Carbon Dioxide (22-30) mmol/L Anion Gap mmol/L BUN (9-20) mg/dL Creatinine (0.66-1.25) mg/dL Est GFR (MDRD) Af Amer (>60 ml/min/1.73 sqM) Est GFR (MDRD) Non-Af (>60 ml/min/1.73 sqM) Glucose (74-99) mg/dL Estimated Ave Glu mg/dL mg/dL Hemoglobin A1c (4.2-6.1) % Plasma Lactic Acid Renzo (0.7-2.0) mmol/L Calcium (8.4-10.2) mg/dL Magnesium (1.6-2.3) mg/dL Total Bilirubin (0.2-1.3) mg/dL AST (17-59) U/L ALT (21-72) U/L Alkaline Phosphatase (38-126) U/L Troponin I 0.105 H* (0.000-0.034) ng/mL NT-Pro-B Natriuret Pep 4500 pg/mL Total Protein (6.3-8.2) g/dL Albumin (3.5-5.0) g/dL Urine Color Urine Appearance (Clear) Urine pH (5.0-8.0) Ur Specific [place] (1.001-1.035) Urine Protein (Negative) Urine Glucose (UA) (Negative) Urine Ketones (Negative) Urine Blood (Negative) Urine Nitrite (Negative) Urine Bilirubin (Negative) Urine Urobilinogen (<2.0) mg/dL Ur Leukocyte Esterase (Negative) Urine RBC (0-5) /hpf Ur Squamous Epith Cells (0-4) /hpf Amorphous Sediment (None) /hpf Granular Casts (0) /lpf Urine Mucus (None) /hpf 02/09/17 02/09/17 Range/Units 05:06 06:05 WBC (3.8-10.6) k/uL RBC (4.30-5.90) m/uL Hgb (13.0-17.5) gm/dL Hct (39.0-53.0) % MCV (80.0-100.0) fL MCH (25.0-35.0) pg MCHC (31.0-37.0) g/dL RDW (11.5-15.5) % Plt Count (150-450) k/uL Neutrophils % (Manual) % Band Neutrophils % % Lymphocytes % (Manual) % Monocytes % (Manual) % Neutrophils # (Manual) (1.3-7.7) k/uL Lymphocytes # (Manual) (1.0-4.8) k/uL Monocytes # (Manual) (0-1.0) k/uL Nucleated RBCs (0-0) /100 WBC Manual Slide Review PT (9.0-12.0) sec INR (<1.1) APTT (22.0-30.0) sec Sodium (137-145) mmol/L Potassium (3.5-5.1) mmol/L Chloride (98-107) mmol/L Carbon Dioxide (22-30) mmol/L Anion Gap mmol/L BUN (9-20) mg/dL Creatinine (0.66-1.25) mg/dL Est GFR (MDRD) Af Amer (>60 ml/min/1.73 sqM) Est GFR (MDRD) Non-Af (>60 ml/min/1.73 sqM) Glucose (74-99) mg/dL Estimated Ave Glu mg/dL 157 mg/dL Hemoglobin A1c 7.1 H (4.2-6.1) % Plasma Lactic Acid Renzo (0.7-2.0) mmol/L Calcium (8.4-10.2) mg/dL Magnesium (1.6-2.3) mg/dL Total Bilirubin (0.2-1.3) mg/dL AST (17-59) U/L ALT (21-72) U/L Alkaline Phosphatase (38-126) U/L Troponin I (0.000-0.034) ng/mL NT-Pro-B Natriuret Pep pg/mL Total Protein (6.3-8.2) g/dL Albumin (3.5-5.0) g/dL Urine Color Yellow Urine Appearance Cloudy (Clear) Urine pH 5.0 (5.0-8.0) Ur Specific [place] 1.012 (1.001-1.035) Urine Protein 1+ H (Negative) Urine Glucose (UA) Negative (Negative) Urine Ketones Negative (Negative) Urine Blood Moderate H (Negative) Urine Nitrite Negative (Negative) Urine Bilirubin Negative (Negative) Urine Urobilinogen <2.0 (<2.0) mg/dL Ur Leukocyte Esterase Negative (Negative) Urine RBC 2 (0-5) /hpf Ur Squamous Epith Cells 1 (0-4) /hpf Amorphous Sediment Rare H (None) /hpf Granular Casts 157 (0) /lpf Urine Mucus Rare H (None) /hpf Disposition Time of Disposition: 08:26 <Garrison Azul - Last Filed: 02/09/17 08:25> <Owen Price - Last Filed: 02/12/17 20:47> Clinical Impression: Pneumonia, Sepsis Disposition: ADMITTED IP TO THIS HOSP
[2017-02-09 05:47] LABS: Calcium 8.8 mg/dL (8.4-10.2); Magnesium 1.8 mg/dL (1.6-2.3); Potassium 4.3 mmol/L (3.5-5.1); Total Bilirubin 0.7 mg/dL (0.2-1.3); Total Protein 6.1 g/dL (6.3-8.2)
[2017-02-09 06:01] LABS: Add Differential Manual Differential
[2017-02-09 06:02] LABS: Manual Review Performed; Nucleated Red Blood Cells 0 /100 WBC (0-0); Total Cells Counted 100
--- NOTE | 2017-02-09 06:05 | XR ---
EXAM: XR Chest, 2 Views CLINICAL HISTORY: Reason: Weakness TECHNIQUE: Frontal and lateral views of the chest. COMPARISON: 01/24/17. FINDINGS: Lungs: Bilateral airspace opacities, more prominent in the mid and lower lungs. Chronic lung changes and extensive calcified pleural plaques again noted, as seen on prior study. Pleural space: Small left greater than right pleural effusions. See above. Heart: Enlarged cardiac silhouette, partially obscured. Mediastinum: Stable. Bones/joints: Stable with left shoulder postsurgical change. IMPRESSION: 1. Bilateral airspace opacities, more prominent in the mid and lower lungs. Correlate clinically for infection or edema. 2. Small left greater than right pleural effusions. 3. Chronic findings similar to prior.
[2017-02-09] MEDS: SODIUM CHLORIDE 0.9% 500 ML IV SCH ×5 (06:18→08:52)
[2017-02-09 06:27] LABS: Amorphous Sediment,Urine Rare /hpf; Appearance,Urine Cloudy (Clear); Bilirubin,Urine Negative (Negative); Glucose,Urine (UA) Negative (Negative); Granular Casts,Urine 157 /lpf (0); Ketones,Urine Negative (Negative); Leukocyte Esterase,Urine Negative (Negative); Mucus,Urine Rare /hpf; Nitrite,Urine Negative (Negative); Particle Count 24273; Protein,Urine 1+ (Negative); RBC,Urine 2 /hpf (0-5); Specific Gravity,Urine 1.012 (1.001-1.035); Squamous Epithelial Cell,Urine 1 /hpf (0-4); UA Billing (MACRO vs. MICRO) MICRO; Urobilinogen,Urine <2.0 mg/dL (<2.0)
[2017-02-09] MEDS ORDERED: LEVOFLOXACIN 750MG-D5W PMX 750 MG in DEXTROSE/WATER 1 150ML.BAG IVPB STA (07:03)
[2017-02-09] MEDS ORDERED: IV VANCOMYCIN PER PHARMACY 1 EACH MISC MISCELLANE PRN (07:06)
[2017-02-09] MEDS ORDERED: AZTREONAM 2 GM in SODIUM CHLORIDE 0.9% 100 ML IVPB STA (07:07)
[2017-02-09] MEDS ORDERED: VANCOMYCIN 2,000 MG in SODIUM CHLORIDE 0.9% 500 ML IVPB ONE (08:00)
[2017-02-09] MEDS: SODIUM CHLORIDE 0.9% 1,000 ML IV SCH ×2 (09:34→18:07)
[2017-02-09 10:56] LABS: Glucose,Whole Blood 210 mg/dL (75-99)
[2017-02-09] MEDS: IPRATROPIUM-ALBUTEROL 3 ML NEB INHALATION SCH ×5 (11:44→20:33)
[2017-02-09] MEDS ORDERED: FUROSEMIDE 10 MG/ML 4 ML VIAL IV STA (12:10)
[2017-02-09] MEDS ORDERED: NALOXONE 0.4 MG/ML 1 ML VIAL IV PRN (12:44)
[2017-02-09] MEDS: INSULIN LISPRO (humaLOG) 300 UNIT/3 ML VIAL SQ SCH ×3 (13:00→23:42)
--- NOTE | 2017-02-09 13:15 | XR ---
EXAMINATION TYPE: XR chest 1V DATE OF EXAM: 02/09/2017 1:04 PM HISTORY: SOB. REFERENCE: Previous study dated earlier today as well as a previous CT scan of the chest dated 017. FINDINGS: There is a left shoulder arthroplasty in place. There are extensive calcified pleural plaques throughout the lungs. There is a worsening right basila r infiltrate. There is stable left-sided airspace disease. Heart size is largely obscured. I cannot e xclude small effusions. IMPRESSION: 1. EVIDENCE OF PREVIOUS ASBESTOS EXPOSURE. 2. BIBASILAR AIRSPACE DISEASE, THAT ON THE RIGHT HAS WORSENED FROM PREVIOUS.
--- NOTE | 2017-02-09 13:57 | P.HPIM ---
History of Present Illness H&P Date: 02/09/17 Chief Complaint: Weakness, and dyspnea Patient is a 89-year-old male known to the practice, was brought to the emergency room via EMS with increasing weakness and inability to walk. Patient has been feeling weak for a number of days. Patient has also been complaining of mild dyspnea. Patient has been currently on steroids for low back pain. However patient has been unable to get out of bed for approximately 2 the evenings. Denies chest pain denies focal weakness. Patient states that both legs will not support him and he has not been walking however patient denies pain in legs. Does complain of nonproductive cough. Review of Systems Constitutional: Reports as per HPI, Reports weakness Cardiovascular: Reports as per HPI, Reports decreased exercise tolerance Respiratory: Reports as per HPI Gastrointestinal: Reports as per HPI Genitourinary: Reports as per HPI Musculoskeletal: Reports as per HPI Integumentary: Reports as per HPI Neurological: Reports as per HPI, Reports weakness Psychiatric: Reports as per HPI Past Medical History Past Medical History: Cancer, Diabetes Mellitus, Hyperlipidemia, Hypertension, Osteoarthritis (OA), Pneumonia, Prostate Disorder Additional Past Medical History / Comment(s): NIDDM type II, low back pain-on steroids for this, osteoarthritis multiple joints, BPH, skin cancer with removals, vertigo at times History of Any Multi-Drug Resistant Organisms: None Reported Past Surgical History: Back Surgery, Heart Catheterization With Stent, Hernia Repair, Joint Replacement, Orthopedic Surgery, Prostate Surgery Additional Past Surgical History / Comment(s): 2008 PCI with stent, lumbar back sx, cortisone injections bilateral knees currently, TURP, total L shoulder arthroplasty, bilateral inguinal hernia repairs, bilateral cataract removal with lens implants, colonoscopy, skin cancer lesions removed from chest/back. Past Anesthesia/Blood Transfusion Reactions: No Reported Reaction Date of Last Stent Placement:: 2008 Past Psychological History: No Psychological Hx Reported Additional Psychological History / Comment(s): Pt resides with his spouse. He usually uses a cane but d/t increased recent leg weakness he has been using a walker. Pt has difficulty standing. He normally cane drive. Smoking Status: Former smoker Past Alcohol Use History: Rare Additional Past Alcohol Use History / Comment(s): Pt started smoking in 1944. He has smoked both pipe and cigarettes. He quit pipe smoking in 1973 and cigarette smoking in 1983. Past Drug Use History: None Reported - Past Family History Father Family Medical History: Cancer Additional Family Medical History / Comment(s): Father of esophageal cancer at the age of 78yrs. Mother Family Medical History: No Reported History Additional Family Medical History / Comment(s): Mother was healthy and at the age of 97yrs. Medications and Allergies Home Medications Medication Instructions Recorded Confirmed Type Acetaminophen-Codeine 300-30mg 1 tab PO Q6H PRN 01/24/17 02/09/17 History [Tylenol #3] Atorvastatin [Lipitor] 20 mg PO HS 01/24/17 02/09/17 History HYDROcodone/APAP 5-325MG [[place] 1 tab PO TID PRN 01/24/17 02/09/17 History 5-325] Melatonin 5 mg PO HS 01/24/17 02/09/17 History Oxybutynin Chloride [Ditropan] 5 mg PO HS 01/24/17 02/09/17 History Valsartan [Diovan] 80 mg PO DAILY 01/24/17 02/09/17 History metFORMIN HCL [Glucophage] 1,000 mg PO BID 01/24/17 02/09/17 History Aspirin [Adult Low Dose Aspirin EC] 81 mg PO DAILY 02/09/17 02/09/17 History Cyclobenzaprine [Flexeril] 5 mg PO TID 02/09/17 02/09/17 History Gabapentin [Neurontin] 300 mg PO TID 02/09/17 02/09/17 History Vicks Zzz-Quil Capsules 1 cap PO HS PRN 02/09/17 02/09/17 History predniSONE See Taper PO DIRECTED 02/09/17 02/09/17 History Allergies Allergy/AdvReac Type Severity Reaction Status Date / Time aspirin Allergy Rash/Hives Verified 02/09/17 12:13 Penicillins Allergy Rash/Hives Verified 02/09/17 07:25 Physical Exam Osteopathic Statement: *. No significant issues noted on an osteopathic structural exam other than those noted in the History and Physical/Consult. Vitals: Vital Signs Temp Pulse Resp BP Pulse Ox 02/09/17 12:00 87 37 H 119/68 93 L 02/09/17 11:30 88 34 H 119/65 95 02/09/17 11:10 86 31 H 129/71 94 L 02/09/17 11:00 98.0 F 90 129/71 92 L 02/09/17 10:55 129/71 90 L 02/09/17 10:40 98.5 F 92 20 118/61 94 L 02/09/17 10:20 98.3 F 95 20 116/60 95 02/09/17 10:10 99.2 F 02/09/17 10:00 94 18 115/60 94 L 02/09/17 09:36 98.7 F 96 18 131/77 93 L 02/09/17 08:43 97 18 108/59 94 L 02/09/17 08:00 97 18 106/52 94 L 02/09/17 07:43 90 18 92/51 94 L Intake and Output 02/08/17 02/09/17 02/09/17 22:59 06:59 14:59 Intake Total 3534 Output Total 1210 Balance 2324 Intake: Amount of Fluid Infused ( 3000 ml) Intake, IV Titration 534 Amount Sodium Chloride 0.9% 1, 200 000 ml @ 100 mls/hr IV . Q10H FRANCI Rx#:[id number] Vancomycin 2,000 mg In 334 Sodium Chloride 0.9% 500 ml @ 167 mls/hr IVPB ONCE ONE Rx#:[id number] Output: Urine 1210 Uretheral (Morse) 385 Other: # Voids 3 General: [Patient awake, alert and oriented times 3. Patient in no acute distress.] HEENT: [PERRL. EOMI. No pharyngeal erythema or exudate.] Neck: [No adenopathy.] Cardiac: [Heart regular in rate and rhythm. No S3. No S4. No clicks, rubs. No murmur.] Lungs: [Clear to auscultation bilaterally., Mild bibasilar crackles Abdomen: [No mass. No organomegaly. Bowel sounds presnt and normoactive in all 4 quadrants.] Extremes: [No edema no cyanosis no claudication normal pulses. Weakness bilateral lower extremes : [] Musculoskeletal: [No joint erythema, edema or tenderness.] Skin: [No rash.] Neurologic: [No lateralizing deficits. CN II - XII grossly intact.] Lymphatic: [No adenopathy.] Results CBC & Chem 7: 02/09/17 05:06 05/01/17 05:06 Labs: Abnormal Lab Results - Last 24 Hours (Table) 02/09/17 Range/Units 10:55 POC Glucose (mg/dL) 210 H (75-99) mg/dL Thrombosis Risk Factor Assmnt - DVT/VTE Prophylaxis DVT/VTE Prophylaxis: Pharmacologic Prophylaxis ordered - Choose All That Apply Any of the Below Risk Factors Present?: Yes Each Factor Represents 1 point: Sepsis (< 1month), Serious lung disease incl. pneumonia (< 1month) Other Risk Factors: Yes Each Risk Factor Represents 3 Points: Age 75 years or older Other congenital or acquired thrombophilia - If yes, enter type in comment: No Thrombosis Risk Factor Assessment Total Risk Factor Score: 5 Thrombosis Risk Factor Assessment Level: High Risk Assessment and Plan (1) Elevated brain natriuretic peptide (BNP) level Narrative/Plan: Elevated BNP consistent with CHF cardiology consult pending Status: Acute (2) CHF (congestive heart failure), NYHA class III Narrative/Plan: Elevated BNP/elevated troponin echo pending Status: Acute Plan: Will await evaluation from cardiology as well as evaluation from pulmonology Time with Patient: Greater than 30
[2017-02-09] MEDS: HYDROcodone/APAP 5-325MG 1 EACH TAB PO PRN ×3 (14:28→22:05)
[2017-02-09 14:35] LABS: Hemoglobin A1C 7.1 % (4.2-6.1)
[2017-02-09] MEDS ORDERED: CYCLOBENZAPRINE 5 MG TAB PO SCH (16:00)
[2017-02-09] MEDS ORDERED: GABAPENTIN 300 MG CAP PO SCH (16:00)
--- NOTE | 2017-02-09 16:21 | P.CNPUL ---
History of Present Illness Consult date: 02/09/17 Requesting physician: Manuel Wagner Jr Reason for consult: other (ICU management, possible sepsis.) Chief complaint: Weakness and shortness of breath History of present illness: This is an 89-year-old white male with multiple medical problems including diabetes, degenerative joint disease, hypertension, coronary artery disease and previous stent placement, patient was seen by his primary care physician a few days ago with complaints of weakness and generalized aches and pains. Patient was placed on a course of prednisone burst and taper, he was also placed on gabapentin, and Flexeril. Over the last 2 days and over the weekend, patient has been getting weaker and weaker. To the point that he is unable to walk. Apparently the patient was unable to even hold steady on a chair, he fell off the chair at one point. And according to the early this morning he fell off the bed, and she could not put him back to bed. Hence EMS was notified, and patient was brought into the ER. Workup in the ER included CBC which was relatively normal. Basic metabolic profile was normal except for elevated BUN of 44 and creatinine of 1.63. Lactic acid was 4.6. And troponin was elevated, proBNP level was elevated patient was given fluid boluses, he went on to develop some mild component of failure, although her chest x-ray is mostly consistent with asbestos associated lung disease. Considering the presentation and his multiple constitutional symptoms, considering his elevated lactic acid, patient was felt to be possibly septic, admitted to the ICU and I was asked to see him on consultation. Placed empirically on antibiotics, given fluid boluses , did not require norepinephrine, after arrival to the ICU I had to diurese the patient since he was developing some component of pulmonary edema. Cultures are pending at the time of dictation including blood cultures and urine cultures. Patient was placed empirically on vancomycin and Levaquin. And on aztreonam. I went ahead and discontinued his gabapentin and Flexeril, this is based on the fact that the patient's constitutional symptoms have become much worse and weakness was noted to be much worse after he was started on gabapentin and Flexeril. Review of Systems 14 point review of systems were obtained, please refer to pertinent positives and negatives, in the HPI, however the patient is definitely a poor historian, most of the information was obtained from his at bedside. Past Medical History Past Medical History: Cancer, Diabetes Mellitus, Hyperlipidemia, Hypertension, Osteoarthritis (OA), Pneumonia, Prostate Disorder Additional Past Medical History / Comment(s): NIDDM type II, low back pain-on steroids for this, osteoarthritis multiple joints, BPH, skin cancer with removals, vertigo at times History of Any Multi-Drug Resistant Organisms: None Reported Past Surgical History: Back Surgery, Heart Catheterization With Stent, Hernia Repair, Joint Replacement, Orthopedic Surgery, Prostate Surgery Additional Past Surgical History / Comment(s): 2008 PCI with stent, lumbar back sx, cortisone injections bilateral knees currently, TURP, total L shoulder arthroplasty, bilateral inguinal hernia repairs, bilateral cataract removal with lens implants, colonoscopy, skin cancer lesions removed from chest/back. Past Anesthesia/Blood Transfusion Reactions: No Reported Reaction Date of Last Stent Placement:: 2008 Past Psychological History: No Psychological Hx Reported Additional Psychological History / Comment(s): Pt resides with his spouse. He usually uses a cane but d/t increased recent leg weakness he has been using a walker. Pt has difficulty standing. He normally cane drive. Smoking Status: Former smoker Past Alcohol Use History: Rare Additional Past Alcohol Use History / Comment(s): Pt started smoking in 1944. He has smoked both pipe and cigarettes. He quit pipe smoking in 1973 and cigarette smoking in 1983. Past Drug Use History: None Reported - Past Family History Father Family Medical History: Cancer Additional Family Medical History / Comment(s): Father of esophageal cancer at the age of 78yrs. Mother Family Medical History: No Reported History Additional Family Medical History / Comment(s): Mother was healthy and at the age of 97yrs. Medications and Allergies Home Medications Medication Instructions Recorded Confirmed Type Acetaminophen-Codeine 300-30mg 1 tab PO Q6H PRN 01/24/17 02/09/17 History [Tylenol #3] Atorvastatin [Lipitor] 20 mg PO HS 01/24/17 02/09/17 History HYDROcodone/APAP 5-325MG [[place] 1 tab PO TID PRN 01/24/17 02/09/17 History 5-325] Melatonin 5 mg PO HS 01/24/17 02/09/17 History Oxybutynin Chloride [Ditropan] 5 mg PO HS 01/24/17 02/09/17 History Valsartan [Diovan] 80 mg PO DAILY 01/24/17 02/09/17 History metFORMIN HCL [Glucophage] 1,000 mg PO BID 01/24/17 02/09/17 History Aspirin [Adult Low Dose Aspirin EC] 81 mg PO DAILY 02/09/17 02/09/17 History Cyclobenzaprine [Flexeril] 5 mg PO TID 02/09/17 02/09/17 History Gabapentin [Neurontin] 300 mg PO TID 02/09/17 02/09/17 History Vicks Zzz-Quil Capsules 1 cap PO HS PRN 02/09/17 02/09/17 History predniSONE See Taper PO DIRECTED 02/09/17 02/09/17 History Allergies Allergy/AdvReac Type Severity Reaction Status Date / Time aspirin Allergy Rash/Hives Verified 02/09/17 12:13 Penicillins Allergy Rash/Hives Verified 02/09/17 07:25 Physical Exam Vitals: Vital Signs Temp Pulse Resp BP Pulse Ox 02/09/17 15:25 47 H 02/09/17 15:00 98.1 F 90 47 H 136/65 95 02/09/17 14:30 28 L 30 H 118/64 92 L 02/09/17 14:00 76 31 H 136/69 93 L 02/09/17 13:30 85 30 H 104/62 97 02/09/17 13:00 84 30 H 113/65 96 02/09/17 12:30 85 42 H 113/67 95 02/09/17 12:00 87 26 H 119/68 93 L 02/09/17 11:30 88 34 H 119/65 95 02/09/17 11:10 86 31 H 129/71 94 L 02/09/17 11:00 98.0 F 90 129/71 92 L 02/09/17 10:55 129/71 90 L 02/09/17 10:40 98.5 F 92 20 118/61 94 L 02/09/17 10:20 98.3 F 95 20 116/60 95 02/09/17 10:10 99.2 F 02/09/17 10:00 94 18 115/60 94 L 02/09/17 09:36 98.7 F 96 18 131/77 93 L 02/09/17 08:43 97 18 108/59 94 L 02/09/17 08:00 97 18 106/52 94 L 02/09/17 07:43 90 18 92/51 94 L Intake and Output 02/09/17 02/09/17 02/09/17 06:59 14:59 22:59 Intake Total 3684 75 Output Total 0 1185 Balance 1624 -1110 Intake: Amount of Fluid Infused ( 3000 ml) Intake, IV Titration 684 75 Amount Sodium Chloride 0.9% 1, 350 75 000 ml @ 100 mls/hr IV . Q10H [facility] Rx#:[id number] Vancomycin 2,000 mg In 334 Sodium Chloride 0.9% 500 ml @ 167 mls/hr IVPB ONCE ONE Rx#:[id number] Output: Urine 2059 1185 Uretheral (Morse) 385 385 Other: Voiding Method Indwelling Catheter Indwelling Catheter # Voids 3 3 Weight 83.915 kg Patient Weight 02/10/17 06:59 Weight 83.915 kg General: [Patient awake, alert and oriented times 3. Noted to be slightly dyspneic HEENT: [PERRL. EOMI. No pharyngeal erythema or exudate.] Neck: [No adenopathy.] Cardiac: [Heart regular in rate and rhythm. No S3. No S4. No clicks, rubs. No murmur.] Lungs: Crackles at the bases bilaterally. Abdomen: [No mass. No organomegaly. Bowel sounds presnt and normoactive in all 4 quadrants.] Extremes: [No edema no cyanosis no claudication normal pulses. Weakness bilateral lower extremes : [] Musculoskeletal: [No joint erythema, edema or tenderness.] Skin: [No rash.] Neurologic: [No lateralizing deficits. CN II - XII grossly intact.] Lymphatic: [No adenopathy.] Results - Laboratory Findings CBC and BMP: 02/09/17 05:06 02/09/17 05:06 PT/INR, D-dimer PT 11.0 sec (9.0-12.0) 02/09/17 05:06 INR 1.1 (<1.1) 02/09/17 05:06 Abnormal lab findings: Abnormal Labs 02/09/17 02/09/17 10:55 14:28 POC Glucose (mg/dL) 210 H Troponin I 0.123 H* - Diagnostic Findings Chest x-ray: image reviewed (Chest x-ray is suggestive of asbestos associated lung disease, possibility of by basilar space disease is not entirely ruled out , however I believe the findings are more or less findings of interstitial edema.) Assessment and Plan Plan: Impression: 1 acute presentation of multiple constitutional symptoms mostly symptoms of profound weakness, exact etiology is not clear, however the possibility of sepsis would have to be considered especially with elevated lactic acid, and the patient will be treated as such for now. 2 asbestos associated lung disease, and suspect some underlying component of congestive heart failure. Possibility of her pain is disease is not entirely ruled out but felt to be less likely. 3 acute kidney injury, most likely secondary to hypotension upon presentation. 4 possible non-ST elevation myocardial infarction with elevated troponin on presentation, patient will have an echocardiogram, and cardiac consultation. Recommendation: Discussed the condition with the patient and his at bedside , I recommended holding some of the medications including gabapentin, Flexeril, and prednisone for the time being, I have also recommended empiric antibiotics coverage, patient will be diuresed since he seems to be developing some component of heart failure because of the fluid boluses he received and not to mention the patient had elevated pro BNP to begin with. Patient will need an echocardiogram to assess LV function and will need cardiac evaluation for his elevated troponin. Will monitor the patient in the ICU, cultures were ordered, and these are pending. Empiric antibiotics were also ordered. We'll continue to follow closely. Time with Patient: Greater than 30
[2017-02-09 16:47] LABS: Glucose,Whole Blood 142 mg/dL (75-99)
[2017-02-09 18:04] LABS: Glucose,Whole Blood 135 mg/dL (75-99)
[2017-02-09] MEDS: ATORVASTATIN 20 MG TAB PO SCH (20:17)
[2017-02-09] MEDS: HEPARIN SODIUM,PORCINE 5,000 UNIT/ML 1 ML VIAL SQ SCH (20:17)
[2017-02-09] MEDS: OXYBUTYNIN CHLORIDE 5 MG TAB PO SCH (20:17)
[2017-02-09 23:43] LABS: Glucose,Whole Blood 161 mg/dL (75-99)
[2017-02-09] MEDS: MELATONIN 5 MG TABLET PO SCH (23:45)
[2017-02-10 05:02] LABS: Basophils % (A) 0 %; CH 30.3; CHCM 31.9; Eosinophils % (A) 0 %; HCT 28.7 % (39.0-53.0); HDW 2.38; HGB 9.2 gm/dL (13.0-17.5); Luc # (Auto) 0.11; Luc % (Auto) 2; Lymphocytes # (A) 0.8 k/uL (1.0-4.8); Lymphocytes % (A) 12 %; MCH 30.4 pg (25.0-35.0); MCV 95.2 fL (80.0-100.0); Mean Platelet Volume 9.6; Monocytes # (A) 0.4 k/uL (0-1.0); Monocytes % (A) 5 %; Neutrophils # (A) 5.8 k/uL (1.3-7.7); Neutrophils % (A) 81 %; RBC 3.02 m/uL (4.30-5.90); RDW 13.3 % (11.5-15.5); WBC 7.1 k/uL (3.8-10.6); WBC (Perox) 7.49
[2017-02-10 05:04] LABS: Calcium 8.2 mg/dL (8.4-10.2); Magnesium 1.8 mg/dL (1.6-2.3); Potassium 3.8 mmol/L (3.5-5.1)
[2017-02-10] MEDS ORDERED: Potassium Replacement Protocol 1 EACH MISC MISCELLANE PRN (05:14)
[2017-02-10] MEDS: SODIUM CHLORIDE 0.9% 1,000 ML IV SCH ×2 (05:33→12:48)
[2017-02-10] MEDS: VANCOMYCIN 1,500 MG in SODIUM CHLORIDE 0.9% 250 ML IVPB SCH (06:18)
[2017-02-10] MEDS: HYDROcodone/APAP 5-325MG 1 EACH TAB PO PRN ×2 (06:18→21:04)
[2017-02-10] MEDS: POTASSIUM CHLORIDE 10 MEQ, LIDOCAINE 2% INJ 10 MG in SODIUM CHLORIDE 0.9% 100 ML IV SCH ×2 (06:57→08:04)
[2017-02-10] MEDS ORDERED: Magnesium Replacement Protocol 1 EACH MISC MISCELLANE PRN (07:13)
[2017-02-10] MEDS: INSULIN LISPRO (humaLOG) 300 UNIT/3 ML VIAL SQ SCH ×3 (07:52→18:47)
[2017-02-10] MEDS: MAGNESIUM SULFATE-D5W PMX 1 GM in DEXTROSE/WATER 1 100ML.BAG IVPB SCH ×2 (08:03→09:42)
[2017-02-10] MEDS: HEPARIN SODIUM,PORCINE 5,000 UNIT/ML 1 ML VIAL SQ SCH (08:04)
[2017-02-10] MEDS: ASPIRIN 81 MG CHEW PO SCH (08:04)
[2017-02-10] MEDS: FAMOTIDINE 20 MG TAB PO SCH (08:04)
[2017-02-10] MEDS: VALSARTAN 80 MG TAB PO SCH (08:05)
--- NOTE | 2017-02-10 08:09 | XR ---
EXAMINATION TYPE: XR chest 1V DATE OF EXAM: 02/10/2017 6:32 AM COMPARISON: Prior chest x-ray first of February 2017 HISTORY: Shortness of breath TECHNIQUE: Single frontal view of the chest is obtained. FINDINGS: There is no significant interval change. Pleural parenchymal changes show similar appearan ce, the heart may be enlarged. No pneumothorax. Difficult to exclude effusion. Postop change noted to the left shoulder. Right shoulder is high riding suggesting chronic rotator cuff tear. Interstitium somewhat prominent. Possible airspace disease. There are overlying cardiac leads. IMPRESSION: Similar findings to prior exam. Difficult to exclude pneumonia with effusions, congestiv e heart failure, asbestos related disease.
[2017-02-10] MEDS: IPRATROPIUM-ALBUTEROL 3 ML NEB INHALATION SCH ×5 (09:50→23:34)
--- NOTE | 2017-02-10 11:09 | ECHOF ---
Referral Reason:Elevated BNP, elevated troponin MEASUREMENTS -------- HEIGHT: 157.5 cm WEIGHT: 83.9 kg BP: 118/64 RVIDd: 2.5 cm (< 3.3) IVSd: 1.1 cm (0.6 - 1.1) LVIDd: 4.1 cm (3.9 - 5.3) LVPWd: 1.3 cm (0.6 - 1.1) IVSs: 1.6 cm LVIDs: 3.2 cm LVPWs: 1.3 cm LA Diam: 3.6 cm (2.7 - 3.8) Ao Diam: 4.1 cm (2.0 - 3.7) AV Cusp: 2.3 cm (1.5 - 2.6) LA Diam: 4.2 cm (2.7 - 3.8) MV EXCURSION: 21.518 mm (> 18.000) MV EF SLOPE: 138 mm/s (70 - 150) EPSS: 0.7 cm MV E Louie: 0.63 m/s MV DecT: 225 ms MV A Louie: 1.02 m/s MV E/A Ratio: 0.61 RAP: 5.00 mmHg RVSP: 27.98 mmHg FINDINGS -------- Sinus rhythm. This was a technically adequate study. There is mild concentric left ventricular hypertrophy. Overall left ventricular systolic function is normal with, an EF between 55 - 60 %. The right ventricle is normal in size. The left atrial size is normal. The right atrial size is normal. There is mild aortic valve sclerosis. There is no evidence of aortic regurgitation. Mild mitral annular calcification present. Mild mitral regurgitation is present. Mild tricuspid regurgitation present. There is no evidence of pulmonary hypertension. The right ventricular systolic pressure, as measured by Doppler, is 27.98mmHg. There is no pulmonic regurgitation present. The aortic root size is normal. There is no pericardial effusion. CONCLUSIONS -------- 1. There is mild concentric left ventricular hypertrophy. 2. Overall left ventricular systolic function is normal with, an EF between 55 - 60 %. 3. There is mild aortic valve sclerosis. 4. Mild mitral annular calcification present. 5. Mild mitral regurgitation is present. 6. Mild tricuspid regurgitation present. 7. There is no evidence of pulmonary hypertension. 8. The right ventricular systolic pressure, as measured by Doppler, is 27.98mmHg. COPYRIGHT CLERK: Emily Salinas RDCS
[2017-02-10 12:10] LABS: Glucose,Whole Blood 220 mg/dL (75-99)
--- NOTE | 2017-02-10 15:33 | P.PN ---
Subjective Principal diagnosis: Acute sepsis This is an 89-year-old white male with multiple medical problems including diabetes, degenerative joint disease, hypertension, coronary artery disease and previous stent placement, patient was seen by his primary care physician a few days ago with complaints of weakness and generalized aches and pains. Patient was placed on a course of prednisone burst and taper, he was also placed on gabapentin, and Flexeril. Over the last 2 days and over the weekend, patient has been getting weaker and weaker. To the point that he is unable to walk. Apparently the patient was unable to even hold steady on a chair, he fell off the chair at one point. And according to the early this morning he fell off the bed, and she could not put him back to bed. Hence EMS was notified, and patient was brought into the ER. Workup in the ER included CBC which was relatively normal. Basic metabolic profile was normal except for elevated BUN of 44 and creatinine of 1.63. Lactic acid was 4.6. And troponin was elevated, proBNP level was elevated patient was given fluid boluses, he went on to develop some mild component of failure, although her chest x-ray is mostly consistent with asbestos associated lung disease. Considering the presentation and his multiple constitutional symptoms, considering his elevated lactic acid, patient was felt to be possibly septic, admitted to the ICU and I was asked to see him on consultation. Placed empirically on antibiotics, given fluid boluses , did not require norepinephrine, after arrival to the ICU I had to diurese the patient since he was developing some component of pulmonary edema. Cultures are pending at the time of dictation including blood cultures and urine cultures. Patient was placed empirically on vancomycin and Levaquin. And on aztreonam. I went ahead and discontinued his gabapentin and Flexeril, this is based on the fact that the patient's constitutional symptoms have become much worse and weakness was noted to be much worse after he was started on gabapentin and Flexeril. Patient was reevaluated today on 02/10/2017, seems to be doing a bit better, he is hemodynamically stable, less shortness of breath and maintained on Lasix for his fluid overload. Did not require any norepinephrine. Cultures of the urine and blood remain negative. CBC is relatively normal except for hemoglobin of 9.2. BUN and creatinine are improving, BUN is 31 creatinine is 1.40 today. Electrolytes are relatively unremarkable. His creatinine on admission was 1.63. Chest x-ray is showing evidence of bilateral pleural effusions, and asbestos associated lung disease. Hence patient will be placed on a maintenance dose of Lasix. Echocardiogram is relatively unremarkable good LV function was noted. Objective - Vital Signs Vital signs: Vital Signs Temp 98.0 F 02/10/17 08:00 Pulse 82 02/10/17 10:30 Resp 20 02/10/17 10:30 BP 121/59 02/10/17 10:30 Pulse Ox 96 02/10/17 10:30 Intake & Output 02/09/17 02/10/17 02/10/17 18:59 06:59 18:59 Intake Total 4159 825 1330 Output Total 4220 1190 830 Balance -61 -365 500 Weight 83.915 kg 82 kg 82 kg Intake: Amount of Fluid Infused ( 3000 ml) Intake, IV Titration 1059 825 850 Amount Magnesium Sulfate-D5w Pmx 200 1 gm In Dextrose/Water 1 100ml.bag @ 100 mls/hr IVPB Q1H [facility] Rx#: [id number] Potassium Chloride 10 meq 100 Lidocaine 2% Inj 10 mg In Sodium Chloride 0.9% 100 ml @ 100 mls/hr IV Q1HR [facility] Rx#:[id number] Sodium Chloride 0.9% 1, 725 825 425 000 ml @ 100 mls/hr IV . Q10H [facility] Rx#:[id number] Vancomycin 1,500 mg In 125 Sodium Chloride 0.9% 250 ml @ 125 mls/hr IVPB Q24H [facility] Rx#:[id number] Vancomycin 2,000 mg In 334 Sodium Chloride 0.9% 500 ml @ 167 mls/hr IVPB ONCE ONE Rx#:[id number] Oral 100 480 Output: Urine 4220 1190 830 Uretheral (Morse) 770 Other: Voiding Method Indwelling Catheter Indwelling Catheter Indwelling Catheter # Voids 3 - Exam General: [Patient awake, alert and oriented times 3. Noted to be slightly dyspneic HEENT: [PERRL. EOMI. No pharyngeal erythema or exudate.] Neck: [No adenopathy.] Cardiac: [Heart regular in rate and rhythm. No S3. No S4. No clicks, rubs. No murmur.] Lungs: Crackles at the bases bilaterally. Abdomen: [No mass. No organomegaly. Bowel sounds presnt and normoactive in all 4 quadrants.] Extremes: [No edema no cyanosis no claudication normal pulses. Weakness bilateral lower extremes : [] Musculoskeletal: [No joint erythema, edema or tenderness.] Skin: [No rash.] Neurologic: [No lateralizing deficits. CN II - XII grossly intact.] Lymphatic: [No adenopathy.] - Labs CBC & Chem 7: 02/10/17 04:28 02/10/17 04:28 Labs: Abnormal Lab Results - Last 24 Hours (Table) 02/09/17 02/09/17 02/09/17 Range/Units 16:45 18:02 23:41 RBC (4.30-5.90) m/uL Hgb (13.0-17.5) gm/dL Hct (39.0-53.0) % Plt Count (150-450) k/uL Lymphocytes # (1.0-4.8) k/uL Sodium (137-145) mmol/L BUN (9-20) mg/dL Creatinine (0.66-1.25) mg/dL Glucose (74-99) mg/dL POC Glucose (mg/dL) 142 H 135 H 161 H (75-99) mg/dL Calcium (8.4-10.2) mg/dL 02/10/17 02/10/17 02/10/17 Range/Units 04:28 04:28 11:50 RBC 3.02 L (4.30-5.90) m/uL Hgb 9.2 L D (13.0-17.5) gm/dL Hct 28.7 L (39.0-53.0) % Plt Count 147 L (150-450) k/uL Lymphocytes # 0.8 L (1.0-4.8) k/uL Sodium 136 L (137-145) mmol/L BUN 31 H (9-20) mg/dL Creatinine 1.40 H (0.66-1.25) mg/dL Glucose 108 H (74-99) mg/dL POC Glucose (mg/dL) 220 H (75-99) mg/dL Calcium 8.2 L (8.4-10.2) mg/dL Assessment and Plan Plan: Impression: 1 acute presentation of multiple constitutional symptoms mostly symptoms of profound weakness, exact etiology is not clear, however the possibility of sepsis would have to be considered especially with elevated lactic acid, however lactic acid normalized with fluid boluses only. 2 asbestos associated lung disease, and suspect some underlying component of congestive heart failure/diastolic dysfunction. 3 acute kidney injury, most likely secondary to hypotension upon presentation. Improving based on the labs on 02/10/2017 4 possible non-ST elevation myocardial infarction with elevated troponin on presentation, patient will have an echocardiogram, and cardiac consultation. Recommendation: Continue present supportive care measures, patient will be transferred to a monitored bed on selective, continue antibiotics, and I would continue to hold the medications including gabapentin and Flexeril as well as prednisone. Diurese the patient as the chest x-ray is showing evidence of bilateral pleural effusions, and some component of heart failure which I believe is diastolic in nature. Blood cultures are negative so far, we'll continue to follow. Time with Patient: Less than 30
[2017-02-10] MEDS ORDERED: LEVOFLOXACIN 750MG-D5W PMX 750 MG in DEXTROSE/WATER 1 150ML.BAG IVPB SCH (16:00)
--- NOTE | 2017-02-10 17:06 | P.PN ---
Subjective Patient is an 89-year-old white male, patient of Dr. Hadley in the outpatient setting, with a medical history significant for diabetes, degenerative joint disease, hypertension, coronary artery disease with previous stent placement, and chronic back pain. Patient was recently placed on Neurontin and Flexeril and prednisone taper for back pain. Patient presented to the emergency department with chief complaints of weakness and inability to walk. Patient was found to have evidence of elevated lactic acid and hypotension and was treated for possible sepsis with fluids and broad-spectrum antibiotics. Patient did have slightly elevated troponins and elevated BNP and consult to cardiology was requested. Patient was admitted to the intensive care unit with consult to Dr. Hartley for ICU management. 02/10/2017: Patient is evaluated in the intensive care unit. Patient reports feeling better than yesterday. Denies chills, fevers, nausea, vomiting, increased shortness of breath, chest pain, or abdominal pain. Patient complains of back pain. Chest x-ray from this morning with evidence of bilateral pleural effusions and asbestos associated lung disease. Renal function improving. Hemoglobin decreased to 9.2 from 11 yesterday. Echocardiogram with preserved LV function of 55-60%. No evidence of pulmonary hypertension. Patient has not required any vasopressors for hemodynamic support. Patient continues on IV antibiotics for empiric coverage. Final urine culture negative. Preliminary blood cultures with no growth after 24 hours. Objective - Vital Signs Vital signs: Vital Signs Temp 98.0 F 02/10/17 08:00 Pulse 92 02/10/17 16:03 Resp 20 02/10/17 10:30 BP 121/59 02/10/17 10:30 Pulse Ox 96 02/10/17 10:30 Intake & Output 02/09/17 02/10/17 02/10/17 18:59 06:59 18:59 Intake Total 4159 825 1330 Output Total 4220 1190 1180 Balance -61 -365 150 Weight 83.915 kg 82 kg 82 kg Intake: Amount of Fluid Infused ( 3000 ml) Intake, IV Titration 1059 825 850 Amount Magnesium Sulfate-D5w Pmx 200 1 gm In Dextrose/Water 1 100ml.bag @ 100 mls/hr IVPB Q1H [facility] Rx#: [id number] Potassium Chloride 10 meq 100 Lidocaine 2% Inj 10 mg In Sodium Chloride 0.9% 100 ml @ 100 mls/hr IV Q1HR [facility] Rx#:[id number] Sodium Chloride 0.9% 1, 725 825 425 000 ml @ 100 mls/hr IV . Q10H [facility] Rx#:[id number] Vancomycin 1,500 mg In 125 Sodium Chloride 0.9% 250 ml @ 125 mls/hr IVPB Q24H [facility] Rx#:[id number] Vancomycin 2,000 mg In 334 Sodium Chloride 0.9% 500 ml @ 167 mls/hr IVPB ONCE ONE Rx#:[id number] Oral 100 480 Output: Urine 4220 1190 1180 Uretheral (Morse) 770 Other: Voiding Method Indwelling Catheter Indwelling Catheter Indwelling Catheter # Voids 3 3 - Exam GENERAL: Pt awake and alert, well-appearing, well-nourished, and in no acute distress. HEAD: Atraumatic, normocephalic. EYES: Pupils equal, round, and reactive to light, extraocular movements intact, sclera anicteric, conjunctiva are normal. ENT: Moist mucous membranes. NECK: Supple without lymphadenopathy or JVD. LUNGS: Breath sounds with few crackles to posterior bases bilaterally. No wheezes, rales, or rhonchi. HEART: Heart S1, S2, no S3 or S4. Regular rate and rhythm. No murmurs, rubs or gallops. ABDOMEN: Soft, nontender, nondistended, normoactive bowel sounds. No guarding, no rebound. No masses or organomegaly appreciated. EXTREMITIES: 2+ peripheral pulses. No edema, clubbing or cyanosis. No calf tenderness. NEUROLOGICAL: Pt oriented x 3. Cranial nerves II through XII grossly intact. Strength and sensation grossly intact. PSYCH: Normal mood, normal affect. SKIN: Warm, dry, intact. Normal turgor. No rashes or lesions. - Labs CBC & Chem 7: 02/10/17 04:28 02/10/17 04:28 Labs: Abnormal Lab Results - Last 24 Hours (Table) 02/09/17 02/09/17 02/09/17 Range/Units 16:45 18:02 23:41 RBC (4.30-5.90) m/uL Hgb (13.0-17.5) gm/dL Hct (39.0-53.0) % Plt Count (150-450) k/uL Lymphocytes # (1.0-4.8) k/uL Sodium (137-145) mmol/L BUN (9-20) mg/dL Creatinine (0.66-1.25) mg/dL Glucose (74-99) mg/dL POC Glucose (mg/dL) 142 H 135 H 161 H (75-99) mg/dL Calcium (8.4-10.2) mg/dL 02/10/17 02/10/17 02/10/17 Range/Units 04:28 04:28 11:50 RBC 3.02 L (4.30-5.90) m/uL Hgb 9.2 L D (13.0-17.5) gm/dL Hct 28.7 L (39.0-53.0) % Plt Count 147 L (150-450) k/uL Lymphocytes # 0.8 L (1.0-4.8) k/uL Sodium 136 L (137-145) mmol/L BUN 31 H (9-20) mg/dL Creatinine 1.40 H (0.66-1.25) mg/dL Glucose 108 H (74-99) mg/dL POC Glucose (mg/dL) 220 H (75-99) mg/dL Calcium 8.2 L (8.4-10.2) mg/dL Assessment and Plan Plan: Impression and plan: 1. Acute diastolic congestive heart failure, present on admission. Cardiology consult requested, recommendations pending. 2. Severe weakness, present on admission, exact etiology unknown, possible sepsis. Continue IV antibiotics and await blood culture result. 3. Asbestos associated lung disease. 4. Acute kidney injury, present on admission, suspect secondary to intravascular volume depletion secondary to hypotension. 5. Elevated troponins, present on admission. Cardiology consult in place, recommendations pending 6. Bilateral pleural effusions. Continue Lasix. 7. Bilateral lower extremity weakness, chronic. Lower extremity arterial Doppler from 11/08/2014 showed normal study. 8. History of prostate cancer. Patient follows with urologist Dr. Coffey. 9. History of sigmoid diverticulosis. Continue to monitor patient. Continue current medications. Continue supportive treatment and pain management. Continue GI and DVT prophylaxis. Consult PT and OT. Consider orthopedic consult bilateral lower extremity weakness and back pain. Continue to follow with cardiology and pulmonology. Repeat CBC and BMP in a.m. The above impression and plan have been discussed and directed by Dr. Wagner. Megha JOHNSON acting as scribe for Dr. Wagner.
[2017-02-10 17:13] LABS: Glucose,Whole Blood 218 mg/dL (75-99)
[2017-02-10] MEDS ORDERED: HALOPERIDOL LACTATE 5 MG/ML 1 ML VIAL IVP STA (20:50)
[2017-02-10] MEDS ORDERED: LORazepam 2 MG/ML SYRINGE IV PRN (20:52)
[2017-02-10] MEDS: OXYBUTYNIN CHLORIDE 5 MG TAB PO SCH (21:05)
[2017-02-10] MEDS: ATORVASTATIN 20 MG TAB PO SCH (21:05)
[2017-02-10] MEDS: MELATONIN 5 MG TABLET PO SCH (21:05)
[2017-02-10 21:27] LABS: Glucose,Whole Blood 237 mg/dL (75-99)
[2017-02-10] MEDS: Acetaminophen-Codeine 300-30mg TAB PO PRN (23:24)
[2017-02-10 23:53] LABS: Basophils % (A) 0 %; CH 29.8; CHCM 31.1; Eosinophils % (A) 0 %; HCT 30.1 % (39.0-53.0); HDW 2.44; HGB 9.7 gm/dL (13.0-17.5); Hypochromasia Slight; Luc # (Auto) 0.16; Luc % (Auto) 2; Lymphocytes # (A) 0.6 k/uL (1.0-4.8); Lymphocytes % (A) 7 %; MCH 30.8 pg (25.0-35.0); MCHC 32.1 g/dL (31.0-37.0); MCV 96.1 fL (80.0-100.0); Mean Platelet Volume 9.7; Monocytes # (A) 0.6 k/uL (0-1.0); Monocytes % (A) 6 %; Neutrophils # (A) 7.8 k/uL (1.3-7.7); Neutrophils % (A) 85 %; RBC 3.13 m/uL (4.30-5.90); RDW 13.1 % (11.5-15.5); WBC 9.2 k/uL (3.8-10.6); WBC (Perox) 9.06
[2017-02-11] MEDS ORDERED: LORazepam 2 MG/ML SYRINGE IV STA (00:26)
[2017-02-11] MEDS: SODIUM CHLORIDE 0.9% 1,000 ML IV SCH ×3 (00:39→21:33)
[2017-02-11] MEDS: ACETAMINOPHEN IV (For NPO) 1,000 MG in EMPTY BAG 1 BAG IVPB PRN ×2 (00:48→11:51)
[2017-02-11] MEDS: INSULIN LISPRO (humaLOG) 300 UNIT/3 ML VIAL SQ SCH ×5 (01:29→21:57)
[2017-02-11] MEDS: HEPARIN SODIUM,PORCINE 5,000 UNIT/ML 1 ML VIAL SQ SCH ×3 (01:29→21:45)
[2017-02-11 06:27] LABS: Glucose,Whole Blood 151 mg/dL (75-99)
[2017-02-11 06:57] LABS: Basophils % (A) 0 %; CH 29.8; CHCM 30.8; Eosinophils % (A) 0 %; HCT 31.3 % (39.0-53.0); HDW 2.44; HGB 9.8 gm/dL (13.0-17.5); Hypochromasia Slight; Luc % (Auto) 3; Lymphocytes # (A) 0.7 k/uL (1.0-4.8); Lymphocytes % (A) 9 %; MCH 30.6 pg (25.0-35.0); MCHC 31.4 g/dL (31.0-37.0); MCV 97.4 fL (80.0-100.0); Mean Platelet Volume 9.1; Monocytes # (A) 0.6 k/uL (0-1.0); Monocytes % (A) 8 %; Neutrophils # (A) 6.5 k/uL (1.3-7.7); Neutrophils % (A) 81 %; RBC 3.21 m/uL (4.30-5.90); RDW 13.1 % (11.5-15.5); WBC 8.1 k/uL (3.8-10.6); WBC (Perox) 8.91
[2017-02-11 07:08] LABS: Anion Gap 8 mmol/L; Blood Urea Nitrogen 23 mg/dL (9-20); Calcium 8.4 mg/dL (8.4-10.2); Carbon Dioxide 26 mmol/L (22-30); Chloride 108 mmol/L (98-107); Glucose 161 mg/dL (74-99); Magnesium 2.2 mg/dL (1.6-2.3); Non-African American GFR(MDRD) 58 (>60 ml/min/1.73 sqM); Phosphorous 4.4 mg/dL (2.5-4.5); Potassium 4.2 mmol/L (3.5-5.1); Sodium 142 mmol/L (137-145)
--- NOTE | 2017-02-11 08:20 | XR ---
EXAMINATION TYPE: XR chest 1V DATE OF EXAM: 02/11/2017 7:19 AM COMPARISON: Prior chest x-ray two February 2017 HISTORY: Abnormal chest x-ray, shortness of breath TECHNIQUE: Single frontal view of the chest is obtained. FINDINGS: Findings are similar to prior exam. IMPRESSION: Asbestos-related disease suspected. Cardiomegaly, difficult to exclude pneumonia, conges tive heart failure, follow-up is recommended.
[2017-02-11] MEDS: VANCOMYCIN 1,500 MG in SODIUM CHLORIDE 0.9% 250 ML IVPB SCH (09:05)
[2017-02-11] MEDS: IPRATROPIUM-ALBUTEROL 3 ML NEB INHALATION SCH ×4 (09:14→20:31)
[2017-02-11 10:25] LABS: ABG Base Excess -1.1 mmol/L; ABG HCO3 23 mmol/L (21-25); ABG PCO2 35 mmHg (35-45); ABG PH 7.43 (7.35-7.45); ABG PO2 73 mmHg (83-108); ABG TCO2 24 mmol/L (19-24)
[2017-02-11 11:25] LABS: Glucose,Whole Blood 176 mg/dL (75-99)
--- NOTE | 2017-02-11 12:15 | P.CRDCN ---
History of Present Illness Consult date: 02/11/17 Requesting physician: Venu Hadley Reason for Consult (text): Abnormal troponins Chief complaint: Weakness History of present illness: This is an 89-year-old gentleman with history of coronary artery disease and prior stenting of the circumflex in 2008, diabetes, hypertension, paroxysmal atrial fibrillation, hyperlipidemia, family history of premature coronary artery disease, he follows with Dr. Killian in the office. Patient presents to the hospital primarily with symptoms of progressively worsening weakness to the point where he is unable to walk. He was brought to the emergency room by EMS. Initial CBC on presentation was relatively normal, BUN on admission 44, creatinine 1.6. Lactic acid was 4.6. BNP level on admission 4500, troponins 0.12, 0.10. EKG on admission showed sinus tachycardia. 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 And bilateral pleural effusions. He was originally admitted to the ICU with suspicion of possible sepsis and empirically started on antibiotics as well as IV fluids. Urine and blood cultures negative. Hemoglobin 9.8. Patient was diuresed with Lasix in the intensive care unit, he is not currently on any antibiotics at this time. Patient is currently being followed on the telemetry unit. He was quite combative and confused through the night last night and given Haldol. At the time of my examination this morning he is quite sleepy. Temperature on admission here 100.5. Temperature did go up as high as 102.6 last evening. This morning temperature 100.7. Echocardiogram with Doppler study was performed which revealed an ejection fraction of 55-60%. Cardiology consultation was requested because of abnormal troponin values. Troponin values not consistent with acute coronary syndrome, likely secondary to oxygen supply and demand mismatch. Would recommend to continue IV antibiotics for treatment of sepsis. We will continue the patient on aspirin 81 mg daily along with the Lipitor, and valsartan. We will also start the patient on a low-dose beta rosemarie. Past Medical History Past Medical History: Cancer, Diabetes Mellitus, Hyperlipidemia, Hypertension, Osteoarthritis (OA), Pneumonia, Prostate Disorder Additional Past Medical History / Comment(s): NIDDM type II, low back pain-on steroids for this, osteoarthritis multiple joints, BPH, skin cancer with removals, vertigo at times History of Any Multi-Drug Resistant Organisms: None Reported Past Surgical History: Back Surgery, Heart Catheterization With Stent, Hernia Repair, Joint Replacement, Orthopedic Surgery, Prostate Surgery Additional Past Surgical History / Comment(s): 2008 PCI with stent, lumbar back sx, cortisone injections bilateral knees currently, TURP, total L shoulder arthroplasty, bilateral inguinal hernia repairs, bilateral cataract removal with lens implants, colonoscopy, skin cancer lesions removed from chest/back. Past Anesthesia/Blood Transfusion Reactions: No Reported Reaction Date of Last Stent Placement:: 2008 Past Psychological History: No Psychological Hx Reported Additional Psychological History / Comment(s): Pt resides with his spouse. He usually uses a cane but d/t increased recent leg weakness he has been using a walker. Pt has difficulty standing. He normally cane drive. Smoking Status: Former smoker Past Alcohol Use History: Rare Additional Past Alcohol Use History / Comment(s): Pt started smoking in 1944. He has smoked both pipe and cigarettes. He quit pipe smoking in 1973 and cigarette smoking in 1983. Past Drug Use History: None Reported - Past Family History Father Family Medical History: Cancer Additional Family Medical History / Comment(s): Father of esophageal cancer at the age of 78yrs. Mother Family Medical History: No Reported History Additional Family Medical History / Comment(s): Mother was healthy and at the age of 97yrs. Medications and Allergies Home Medications Medication Instructions Recorded Confirmed Type Acetaminophen-Codeine 300-30mg 1 tab PO Q6H PRN 01/24/17 02/09/17 History [Tylenol #3] Atorvastatin [Lipitor] 20 mg PO HS 01/24/17 02/09/17 History HYDROcodone/APAP 5-325MG [Salvo 1 tab PO TID PRN 01/24/17 02/09/17 History 5-325] Melatonin 5 mg PO HS 01/24/17 02/09/17 History Oxybutynin Chloride [Ditropan] 5 mg PO HS 01/24/17 02/09/17 History Valsartan [Diovan] 80 mg PO DAILY 01/24/17 02/09/17 History metFORMIN HCL [Glucophage] 1,000 mg PO BID 01/24/17 02/09/17 History Aspirin [Adult Low Dose Aspirin EC] 81 mg PO DAILY 02/09/17 02/09/17 History Cyclobenzaprine [Flexeril] 5 mg PO TID 02/09/17 02/09/17 History Gabapentin [Neurontin] 300 mg PO TID 02/09/17 02/09/17 History Vicks Zzz-Quil Capsules 1 cap PO HS PRN 02/09/17 02/09/17 History predniSONE See Taper PO DIRECTED 02/09/17 02/09/17 History Allergies Allergy/AdvReac Type Severity Reaction Status Date / Time aspirin Allergy Rash/Hives Verified 02/09/17 12:13 Penicillins Allergy Rash/Hives Verified 02/09/17 07:25 Physical Exam Vitals: Vital Signs Temp Pulse Pulse Pulse Resp BP Pulse Ox 02/11/17 10:17 100.7 F H 02/11/17 09:24 104 H 02/11/17 09:16 100 02/11/17 08:00 98.8 F 113 H 18 113/70 95 02/11/17 03:40 98.2 F 105 H 19 125/75 90 L 02/11/17 00:00 102.6 F H 115 H 22 101/87 90 L 02/10/17 23:46 108 H 02/10/17 23:37 104 H 02/10/17 21:11 102.2 F H 112 H 18 125/105 86 L 02/10/17 21:00 102.2 F H 112 H 22 125/105 86 L 02/10/17 20:06 99 02/10/17 20:00 102.2 F H 112 H 22 125/99 88 L 02/10/17 19:59 94 02/10/17 16:03 92 02/10/17 16:00 98.4 F 76 20 118/66 96 02/10/17 15:51 92 Intake and Output 02/10/17 02/11/17 02/11/17 22:59 06:59 14:59 Intake Total 500 1200 Output Total 2350 600 Balance -1850 600 Intake: IV 200 700 Sodium Chloride 0.9% 1, 200 700 000 ml @ 100 mls/hr IV . Q10H [facility] Rx#:[id number] Intake, IV Titration 100 400 Amount ACETAMINOPHEN IV (For NPO 400 ) 1,000 mg In Empty Bag 1 bag @ 400 mls/hr IVPB Q6HR [facility] Rx#:[id number] Magnesium Sulfate-D5w Pmx 100 1 gm In Dextrose/Water 1 100ml.bag @ 100 mls/hr IVPB Q1H [facility] Rx#: [id number] Oral 200 100 Output: Urine 2350 600 Uretheral (Morse) 600 Other: Voiding Method Indwelling Catheter Indwelling Catheter # Voids 3 Weight 89 kg PHYSICAL EXAMINATION: HEENT: Head is atraumatic, normocephalic. Pupils equal, round. Neck is supple. There is no elevated jugular venous pressure. HEART EXAMINATION: Heart S1, S2 normal. No murmur or gallop heard. CHEST EXAMINATION:lungs reveal crackles to bilateral bases. ABDOMEN: Soft, nontender. Bowel sounds are heard. No organomegaly noted. EXTREMITIES: 2+ peripheral pulses with no evidence of peripheral edema and no calf tenderness noted. NEUROLOGIC patient is awake, alert and oriented -3. . Results 02/11/17 06:37 02/11/17 06:37 CBC 02/10/17 02/11/17 Range/Units 23:34 06:37 WBC 9.2 8.1 (3.8-10.6) k/uL RBC 3.13 L 3.21 L (4.30-5.90) m/uL Hgb 9.7 L 9.8 L (13.0-17.5) gm/dL Hct 30.1 L 31.3 L (39.0-53.0) % Plt Count 173 202 (150-450) k/uL Comprehensive Metabolic Panel 02/11/17 Range/Units 06:37 Sodium 142 (137-145) mmol/L Potassium 4.2 (3.5-5.1) mmol/L Chloride 108 H (98-107) mmol/L Carbon Dioxide 26 (22-30) mmol/L BUN 23 H (9-20) mg/dL Creatinine 1.19 (0.66-1.25) mg/dL Glucose 161 H (74-99) mg/dL Calcium 8.4 (8.4-10.2) mg/dL Current Medications Generic Name Dose Route Start Last Admin Trade Name Freq PRN Reason Stop Dose Admin Acetaminophen/Codeine Phosphate 1 each 02/09/17 12:06 02/10/17 23:24 Tylenol #3 PO 1 each Q6H PRN Administration Pain Hydrocodone Bitart/Acetaminophen 1 each 02/09/17 12:06 02/10/17 21:04 Salvo 5-325 PO 1 each TID PRN Administration Pain Albuterol/Ipratropium 3 ml 02/09/17 08:00 02/11/17 09:14 Duoneb 0.5 Mg-3 Mg/3 Ml Soln INHALATION 3 ml RT-QID [facility] Administration Aspirin 81 mg 02/10/17 09:00 02/10/17 08:04 Aspirin PO 81 mg DAILY [facility] Administration Atorvastatin Calcium 20 mg 02/09/17 21:00 02/10/17 21:05 Lipitor PO 20 mg HS [facility] Administration Famotidine 20 mg 02/10/17 09:00 02/10/17 08:04 Pepcid PO 20 mg DAILY [facility] Administration Heparin Sodium (Porcine) 5,000 unit 02/09/17 21:00 02/11/17 01:29 Heparin SQ Not Given Q12HR [facility] Sodium Chloride 1,000 mls @ 100 mls/hr 02/09/17 07:15 02/11/17 00:39 Saline 0.9% IV Not Given .Q10H [facility] Vancomycin HCl 1,500 mg/ 250 mls @ 125 mls/hr 02/10/17 06:00 02/11/17 09:05 Sodium Chloride IVPB 125 mls/hr Q24H [facility] Administration Acetaminophen 1,000 mg/ IV 100 mls @ 400 mls/hr 02/11/17 00:25 02/11/17 00:48 Solution IVPB 02/12/17 00:26 400 mls/hr Q6HR PRN Administration Fever Insulin Human Lispro 0 unit 02/09/17 12:30 02/11/17 01:29 Humalog SQ Not Given ACHS [facility] Protocol Levofloxacin 750 mg 02/12/17 16:00 Levaquin PO Q48H [facility] Melatonin 5 mg 02/09/17 21:00 02/10/17 21:05 Melatonin PO 5 mg HS [facility] Administration Miscellaneous Information 1 each 02/10/17 05:14 Potassium Per Protocol MISCELLANE DAILY PRN Per Protocol Protocol Miscellaneous Information 1 each 02/10/17 07:13 Magnesium Per Protocol MISCELLANE DAILY PRN Per Protocol Protocol Miscellaneous Information 0 each 02/12/17 05:00 Vancomycin Trough Due MISCELLANE 02/12/17 05:01 DIRECTED ONE Naloxone HCl 0.2 mg 02/09/17 12:44 Narcan IV Q2M PRN Opioid Reversal Oxybutynin Chloride 5 mg 02/09/17 21:00 02/10/17 21:05 Ditropan PO 5 mg HS [facility] Administration Valsartan 80 mg 02/10/17 09:00 02/10/17 08:05 Diovan PO 80 mg DAILY [facility] Administration Intake and Output 02/10/17 02/11/17 02/11/17 22:59 06:59 14:59 Intake Total 500 1200 Output Total 2350 600 Balance -1850 600 Intake: IV 200 700 Sodium Chloride 0.9% 1, 200 700 000 ml @ 100 mls/hr IV . Q10H [facility] Rx#:[id number] Intake, IV Titration 100 400 Amount ACETAMINOPHEN IV (For NPO 400 ) 1,000 mg In Empty Bag 1 bag @ 400 mls/hr IVPB Q6HR [facility] Rx#:[id number] Magnesium Sulfate-D5w Pmx 100 1 gm In Dextrose/Water 1 100ml.bag @ 100 mls/hr IVPB Q1H [facility] Rx#: [id number] Oral 200 100 Output: Urine 2350 600 Uretheral (Morse) 600 Other: Voiding Method Indwelling Catheter Indwelling Catheter # Voids 3 Weight 89 kg 02/11/17 06:37 02/11/17 06:37 EKG Interpretations (text) EKG shows sinus tachycardia with no acute changes. Assessment and Plan Plan: Assessment and plan #1 profound weakness, likely secondary to sepsis. #2 abnormal troponins, not consistent with acute coronary syndrome, likely secondary to oxygen supply and demand mismatch. Echocardiogram with Doppler study was performed which revealed normal left ventricular systolic function. Most recent Estelle scan stress test was performed at the end of October which was reported to be negative for any reversible ischemia. #3 asbestosis and associated lung disease #4 diabetes #5 hypertension #6 hyperlipidemia #7 known history of coronary artery disease with prior stent placement in the circumflex in 2008 #8 paroxysmal atrial fibrillation Plan From cardiology's perspective, we'll continue maximal medical therapy. Continue aspirin 81 mg daily, Lipitor 20 mg daily, valsartan 80 mg daily, we will add a small dose of beta rosemarie to his medication regime as well. DNP note has been reviewed, I agree with a documented findings and plan of care. Patient was seen and examined.
--- NOTE | 2017-02-11 13:13 | P.PN ---
Subjective Principal diagnosis: Acute sepsis This is an 89-year-old white male with multiple medical problems including diabetes, degenerative joint disease, hypertension, coronary artery disease and previous stent placement, patient was seen by his primary care physician a few days ago with complaints of weakness and generalized aches and pains. Patient was placed on a course of prednisone burst and taper, he was also placed on gabapentin, and Flexeril. Over the last 2 days and over the weekend, patient has been getting weaker and weaker. To the point that he is unable to walk. Apparently the patient was unable to even hold steady on a chair, he fell off the chair at one point. And according to the early this morning he fell off the bed, and she could not put him back to bed. Hence EMS was notified, and patient was brought into the ER. Workup in the ER included CBC which was relatively normal. Basic metabolic profile was normal except for elevated BUN of 44 and creatinine of 1.63. Lactic acid was 4.6. And troponin was elevated, proBNP level was elevated patient was given fluid boluses, he went on to develop some mild component of failure, although her chest x-ray is mostly consistent with asbestos associated lung disease. Considering the presentation and his multiple constitutional symptoms, considering his elevated lactic acid, patient was felt to be possibly septic, admitted to the ICU and I was asked to see him on consultation. Placed empirically on antibiotics, given fluid boluses , did not require norepinephrine, after arrival to the ICU I had to diurese the patient since he was developing some component of pulmonary edema. Cultures are pending at the time of dictation including blood cultures and urine cultures. Patient was placed empirically on vancomycin and Levaquin. And on aztreonam. I went ahead and discontinued his gabapentin and Flexeril, this is based on the fact that the patient's constitutional symptoms have become much worse and weakness was noted to be much worse after he was started on gabapentin and Flexeril. Patient was reevaluated today on 02/10/2017, seems to be doing a bit better, he is hemodynamically stable, less shortness of breath and maintained on Lasix for his fluid overload. Did not require any norepinephrine. Cultures of the urine and blood remain negative. CBC is relatively normal except for hemoglobin of 9.2. BUN and creatinine are improving, BUN is 31 creatinine is 1.40 today. Electrolytes are relatively unremarkable. His creatinine on admission was 1.63. Chest x-ray is showing evidence of bilateral pleural effusions, and asbestos associated lung disease. Hence patient will be placed on a maintenance dose of Lasix. Echocardiogram is relatively unremarkable good LV function was noted. patient was reevaluated today on 02/11/2017, apparently overnight the patient has been restless and agitated, and he was given Haldol and Ativan, patient seems to be quite weak on examination today, opens eyes, noted to be a bit tachypneic, but his ABG is relatively unremarkable, is not reflecting a significant hypoxemia and is not reflectng hypercapnia. ABG on 40% showed a pO2 of 73 pCO2 of 35 pH of 7.43. hence I recommended BiPAP, his last x-ray showed mostly findings of asbestos associated lung disease and possibly some component of congestive heart failure. basic metabolic profile is normal. renal profile is relatively normal. blood sugar is 176. Objective - Vital Signs Vital signs: Vital Signs Temp 100.7 F H 02/11/17 10:17 Pulse 100 02/11/17 12:55 Resp 18 02/11/17 08:00 BP 113/70 02/11/17 08:00 Pulse Ox 96 02/11/17 12:00 Intake & Output 02/10/17 02/11/17 02/11/17 18:59 06:59 18:59 Intake Total 1530 1500 Output Total 1980 1800 Balance -450 -300 Weight 82 kg 89 kg Intake: IV 900 Sodium Chloride 0.9% 1, 900 000 ml @ 100 mls/hr IV . Q10H [facility] Rx#:[id number] Intake, IV Titration 850 500 Amount ACETAMINOPHEN IV (For NPO 400 ) 1,000 mg In Empty Bag 1 bag @ 400 mls/hr IVPB Q6HR PRN Rx#:[id number] Magnesium Sulfate-D5w Pmx 200 100 1 gm In Dextrose/Water 1 100ml.bag @ 100 mls/hr IVPB Q1H [facility] Rx#: [id number] Potassium Chloride 10 meq 100 Lidocaine 2% Inj 10 mg In Sodium Chloride 0.9% 100 ml @ 100 mls/hr IV Q1HR [facility] Rx#:[id number] Sodium Chloride 0.9% 1, 425 000 ml @ 100 mls/hr IV . Q10H [facility] Rx#:[id number] Vancomycin 1,500 mg In 125 Sodium Chloride 0.9% 250 ml @ 125 mls/hr IVPB Q24H [facility] Rx#:[id number] Oral 680 100 Output: Urine 1980 1800 Uretheral (Morse) 600 Other: Voiding Method Indwelling Catheter Indwelling Catheter # Voids 3 - Exam General: patient is noted to be lethargic, sleepy, arousable but a bit difficult to arouse. HEENT: [PERRL. EOMI. No pharyngeal erythema or exudate.] Neck: [No adenopathy.] Cardiac: [Heart regular in rate and rhythm. No S3. No S4. No clicks, rubs. No murmur.] Lungs: Crackles at the bases bilaterally. patient is noted to be tachypneic and breathing is a bit shallow. Abdomen: [No mass. No organomegaly. Bowel sounds presnt and normoactive in all 4 quadrants.] Extremes: [No edema no cyanosis no claudication normal pulses. Weakness bilateral lower extremes : [] Musculoskeletal: [No joint erythema, edema or tenderness.] Skin: [No rash.] Neurologic: [No lateralizing deficits. CN II - XII grossly intact.] Lymphatic: [No adenopathy.] - Labs CBC & Chem 7: 02/11/17 06:37 02/11/17 06:37 Labs: Abnormal Lab Results - Last 24 Hours (Table) 02/10/17 02/10/17 02/10/17 Range/Units 16:54 21:12 23:34 RBC 3.13 L (4.30-5.90) m/uL Hgb 9.7 L (13.0-17.5) gm/dL Hct 30.1 L (39.0-53.0) % Neutrophils # 7.8 H (1.3-7.7) k/uL Lymphocytes # 0.6 L (1.0-4.8) k/uL ABG pO2 (83-108) mmHg Chloride (98-107) mmol/L BUN (9-20) mg/dL Glucose (74-99) mg/dL POC Glucose (mg/dL) 218 H 237 H (75-99) mg/dL 02/11/17 02/11/17 02/11/17 Range/Units 06:23 06:37 06:37 RBC 3.21 L (4.30-5.90) m/uL Hgb 9.8 L (13.0-17.5) gm/dL Hct 31.3 L (39.0-53.0) % Neutrophils # (1.3-7.7) k/uL Lymphocytes # 0.7 L (1.0-4.8) k/uL ABG pO2 (83-108) mmHg Chloride 108 H (98-107) mmol/L BUN 23 H (9-20) mg/dL Glucose 161 H (74-99) mg/dL POC Glucose (mg/dL) 151 H (75-99) mg/dL 02/11/17 02/11/17 Range/Units 10:15 11:23 RBC (4.30-5.90) m/uL Hgb (13.0-17.5) gm/dL Hct (39.0-53.0) % Neutrophils # (1.3-7.7) k/uL Lymphocytes # (1.0-4.8) k/uL ABG pO2 73 L (83-108) mmHg Chloride (98-107) mmol/L BUN (9-20) mg/dL Glucose (74-99) mg/dL POC Glucose (mg/dL) 176 H (75-99) mg/dL Assessment and Plan Plan: Impression: 1 acute presentation of multiple constitutional symptoms mostly symptoms of profound weakness, exact etiology is not clear, however the possibility of sepsis would have to be considered especially with elevated lactic acid, however lactic acid normalized with fluid boluses only. 2 asbestos associated lung disease, and suspect some underlying component of congestive heart failure/diastolic dysfunction. 3 acute kidney injury, most likely secondary to hypotension upon presentation. Improving based on the labs on 02/11/2017. 4 possible non-ST elevation myocardial infarction with elevated troponin on presentation, patient will have an echocardiogram, and cardiac consultation. Recommendation: Continue present supportive care measures, patient will be transferred to a monitored bed on selective, continue antibiotics, and I would continue to hold the medications including gabapentin and Flexeril as well as prednisone. I would also hold Haldol and Ativan for now. Diurese the patient as the chest x-ray is showing evidence of bilateral pleural effusions, and some component of heart failure which I believe is diastolic in nature. Blood cultures are negative so far, we'll continue to follow. for this present episode of tachypnea Roxanne shallow breathing, I will recommend a short course of BiPAP treatment over the next few hours in the meantime I will discontinue Haldol and Ativan. we'll continue to follow closely. Time with Patient: Less than 30
--- NOTE | 2017-02-11 14:20 | P.PN ---
Subjective Patient is an 89-year-old white male, patient of Dr. Hadley in the outpatient setting, with a medical history significant for diabetes, degenerative joint disease, hypertension, coronary artery disease with previous stent placement, and chronic back pain. Patient was recently placed on Neurontin and Flexeril and prednisone taper for back pain. Patient presented to the emergency department with chief complaints of weakness and inability to walk. Patient was found to have evidence of elevated lactic acid and hypotension and was treated for possible sepsis with fluids and broad-spectrum antibiotics. Patient did have slightly elevated troponins and elevated BNP and consult to cardiology was requested. Patient was admitted to the intensive care unit with consult to Dr. Hartley for ICU management. 02/10/2017: Patient is evaluated in the intensive care unit. Patient reports feeling better than yesterday. Denies chills, fevers, nausea, vomiting, increased shortness of breath, chest pain, or abdominal pain. Patient complains of back pain. Chest x-ray from this morning with evidence of bilateral pleural effusions and asbestos associated lung disease. Renal function improving. Hemoglobin decreased to 9.2 from 11 yesterday. Echocardiogram with preserved LV function of 55-60%. No evidence of pulmonary hypertension. Patient has not required any vasopressors for hemodynamic support. Patient continues on IV antibiotics for empiric coverage. Final urine culture negative. Preliminary blood cultures with no growth after 24 hours. 02/11/2017: Patient is evaluated on selective care unit where he is minimally responsive to painful stimuli. According to nursing staff and chart, patient became agitated last night which required initiation of restraints and chemical sedation. In reviewing vital signs, patient did have a temperature of 102.6 around midnight last night. Patient is currently unable to provide any history as he has quite lethargic. Blood gases did not reveal any significant hypoxemia or hypercapnia. Due to patient's decreased mental status, patient was placed on BiPAP in collaboration with Dr. Hartley, pulmonary resource center teacher. Chest x-ray with evidence of asbestos associated lung disease and possibly component of congestive heart failure. Cardiology consult has been requested. In reviewing lab work, creatinine has improved to 1.19. Preliminary blood cultures with no growth after 48 hours. Objective - Vital Signs Vital signs: Vital Signs Temp 100.7 F H 02/11/17 10:17 Pulse 100 02/11/17 12:55 Resp 18 02/11/17 08:00 BP 113/70 02/11/17 08:00 Pulse Ox 96 02/11/17 12:00 Intake & Output 02/10/17 02/11/17 02/11/17 18:59 06:59 18:59 Intake Total 1530 1500 Output Total 1979 1799 Balance -450 -300 Weight 82 kg 89 kg Intake: IV 900 Sodium Chloride 0.9% 1, 900 000 ml @ 100 mls/hr IV . Q10H [facility] Rx#:[id number] Intake, IV Titration 850 500 Amount ACETAMINOPHEN IV (For NPO 400 ) 1,000 mg In Empty Bag 1 bag @ 400 mls/hr IVPB Q6HR PRN Rx#:[id number] Magnesium Sulfate-D5w Pmx 200 100 1 gm In Dextrose/Water 1 100ml.bag @ 100 mls/hr IVPB Q1H [facility] Rx#: [id number] Potassium Chloride 10 meq 100 Lidocaine 2% Inj 10 mg In Sodium Chloride 0.9% 100 ml @ 100 mls/hr IV Q1HR [facility] Rx#:[id number] Sodium Chloride 0.9% 1, 425 000 ml @ 100 mls/hr IV . Q10H [facility] Rx#:[id number] Vancomycin 1,500 mg In 125 Sodium Chloride 0.9% 250 ml @ 125 mls/hr IVPB Q24H [facility] Rx#:[id number] Oral 680 100 Output: Urine 1979 1799 Uretheral (Morse) 600 Other: Voiding Method Indwelling Catheter Indwelling Catheter # Voids 3 - Exam GENERAL: Pt lethargic, responds to painful stimuli. HEAD: Atraumatic, normocephalic. EYES: Pupils equal, round, and reactive to light, sclera anicteric, conjunctiva are normal. ENT: Dry mucous membranes. NECK: Supple without lymphadenopathy or JVD. LUNGS: Breath sounds with few crackles to posterior bases bilaterally. No wheezes, rales, or rhonchi. Patient tachypneic with shallow breathing. HEART: Heart S1, S2, no S3 or S4. Regular rate and rhythm. No murmurs, rubs or gallops. ABDOMEN: Soft, nontender, nondistended, normoactive bowel sounds. No guarding, no rebound. No masses or organomegaly appreciated. EXTREMITIES: 2+ peripheral pulses. No edema, clubbing or cyanosis. NEUROLOGICAL: Pt lethargic. Arouses briefly to painful stimuli. SKIN: Warm, dry. No rashes or lesions. - Labs CBC & Chem 7: 02/11/17 06:37 02/11/17 06:37 Labs: Abnormal Lab Results - Last 24 Hours (Table) 02/10/17 02/10/17 02/10/17 Range/Units 16:54 21:12 23:34 RBC 3.13 L (4.30-5.90) m/uL Hgb 9.7 L (13.0-17.5) gm/dL Hct 30.1 L (39.0-53.0) % Neutrophils # 7.8 H (1.3-7.7) k/uL Lymphocytes # 0.6 L (1.0-4.8) k/uL ABG pO2 (83-108) mmHg Chloride (98-107) mmol/L BUN (9-20) mg/dL Glucose (74-99) mg/dL POC Glucose (mg/dL) 218 H 237 H (75-99) mg/dL 02/11/17 02/11/17 02/11/17 Range/Units 06:23 06:37 06:37 RBC 3.21 L (4.30-5.90) m/uL Hgb 9.8 L (13.0-17.5) gm/dL Hct 31.3 L (39.0-53.0) % Neutrophils # (1.3-7.7) k/uL Lymphocytes # 0.7 L (1.0-4.8) k/uL ABG pO2 (83-108) mmHg Chloride 108 H (98-107) mmol/L BUN 23 H (9-20) mg/dL Glucose 161 H (74-99) mg/dL POC Glucose (mg/dL) 151 H (75-99) mg/dL 02/11/17 02/11/17 Range/Units 10:15 11:23 RBC (4.30-5.90) m/uL Hgb (13.0-17.5) gm/dL Hct (39.0-53.0) % Neutrophils # (1.3-7.7) k/uL Lymphocytes # (1.0-4.8) k/uL ABG pO2 73 L (83-108) mmHg Chloride (98-107) mmol/L BUN (9-20) mg/dL Glucose (74-99) mg/dL POC Glucose (mg/dL) 176 H (75-99) mg/dL Assessment and Plan Plan: Impression and plan: 1. Acute diastolic congestive heart failure, present on admission. Continue Lasix. 2. Severe weakness, present on admission, exact etiology unknown, possible sepsis. Continue IV antibiotics and await blood culture result. Orthopedic consult requested. 3. Asbestos associated lung disease. 4. Acute kidney injury, present on admission, suspect secondary to intravascular volume depletion secondary to hypotension, improved. 5. Elevated troponins, present on admission, not consistent with acute coronary syndrome, likely secondary to oxygen supply demand mismatch. Echocardiogram with normal left ventricular systolic function. 6. Bilateral pleural effusions. Continue Lasix. 7. Bilateral lower extremity weakness, chronic. Lower extremity arterial Doppler from 11/08/2014 showed normal study. 8. History of prostate cancer. Patient follows with urologist Dr. Coffey. 9. History of sigmoid diverticulosis. 10. Hyperlipidemia. 11. Paroxysmal atrial fibrillation. 12. Acute metabolic encephalopathy, suspect secondary to sepsis. 13. Acute hypoxic respiratory failure suspect secondary to sepsis and possible medication induced. Hold narcotics. Continue BiPAP per pulmonary recommendation. Continue to monitor patient. Continue current medications. Continue supportive treatment and pain management. Continue GI and DVT prophylaxis. Continue PT and OT. Continue to follow with consultants. Repeat CBC and BMP in a.m. The above impression and plan have been discussed and directed by Dr. Wagner. Megha JOHNSON acting as scribe for Dr. Wagner.
[2017-02-11] MEDS: FAMOTIDINE 20 MG TAB PO SCH (15:53)
[2017-02-11] MEDS: ASPIRIN 81 MG CHEW PO SCH (15:53)
[2017-02-11] MEDS: VALSARTAN 80 MG TAB PO SCH (15:54)
--- NOTE | 2017-02-11 16:10 | P.CNOR ---
History of Present Illness - HPI Consult date: 02/11/17 History of present illness: This is an 89-year-old gentleman admitted with pneumonia, sepsis and weakness. We are consult of her bilateral lower extremity weakness. The patient was seen and evaluated at bedside with Dr. John Mera. The patient is asleep and difficult to arouse. Breathing appears labored. His history is limited as the patient continues to sleep during the exam. The majority of the history is taken from chart review. Review of Systems Unable to obtain Past Medical History Past Medical History: Cancer, Diabetes Mellitus, Hyperlipidemia, Hypertension, Osteoarthritis (OA), Pneumonia, Prostate Disorder Additional Past Medical History / Comment(s): NIDDM type II, low back pain-on steroids for this, osteoarthritis multiple joints, BPH, skin cancer with removals, vertigo at times History of Any Multi-Drug Resistant Organisms: None Reported Past Surgical History: Back Surgery, Heart Catheterization With Stent, Hernia Repair, Joint Replacement, Orthopedic Surgery, Prostate Surgery Additional Past Surgical History / Comment(s): 2008 PCI with stent, lumbar back sx, cortisone injections bilateral knees currently, TURP, total L shoulder arthroplasty, bilateral inguinal hernia repairs, bilateral cataract removal with lens implants, colonoscopy, skin cancer lesions removed from chest/back. Past Anesthesia/Blood Transfusion Reactions: No Reported Reaction Date of Last Stent Placement:: 2008 Past Psychological History: No Psychological Hx Reported Additional Psychological History / Comment(s): Pt resides with his spouse. He usually uses a cane but d/t increased recent leg weakness he has been using a walker. Pt has difficulty standing. He normally cane drive. Smoking Status: Former smoker Past Alcohol Use History: Rare Additional Past Alcohol Use History / Comment(s): Pt started smoking in 1944. He has smoked both pipe and cigarettes. He quit pipe smoking in 1973 and cigarette smoking in 1983. Past Drug Use History: None Reported - Past Family History Father Family Medical History: Cancer Additional Family Medical History / Comment(s): Father of esophageal cancer at the age of 78yrs. Mother Family Medical History: No Reported History Additional Family Medical History / Comment(s): Mother was healthy and at the age of 97yrs. Medications and Allergies Home Medications Medication Instructions Recorded Confirmed Type Acetaminophen-Codeine 300-30mg 1 tab PO Q6H PRN 01/24/17 02/09/17 History [Tylenol #3] Atorvastatin [Lipitor] 20 mg PO HS 01/24/17 02/09/17 History HYDROcodone/APAP 5-325MG [[place] 1 tab PO TID PRN 01/24/17 02/09/17 History 5-325] Melatonin 5 mg PO HS 01/24/17 02/09/17 History Oxybutynin Chloride [Ditropan] 5 mg PO HS 01/24/17 02/09/17 History Valsartan [Diovan] 80 mg PO DAILY 01/24/17 02/09/17 History metFORMIN HCL [Glucophage] 1,000 mg PO BID 01/24/17 02/09/17 History Aspirin [Adult Low Dose Aspirin EC] 81 mg PO DAILY 02/09/17 02/09/17 History Cyclobenzaprine [Flexeril] 5 mg PO TID 02/09/17 02/09/17 History Gabapentin [Neurontin] 300 mg PO TID 02/09/17 02/09/17 History Vicks Zzz-Quil Capsules 1 cap PO HS PRN 02/09/17 02/09/17 History predniSONE See Taper PO DIRECTED 02/09/17 02/09/17 History Allergies Allergy/AdvReac Type Severity Reaction Status Date / Time aspirin Allergy Rash/Hives Verified 02/09/17 12:13 Penicillins Allergy Rash/Hives Verified 02/09/17 07:25 Physical Examination Exam is somewhat limited as the patient is sleeping. His breathing appears somewhat labored. He does not respond to questions. There is no obvious leg length discrepancy. Upon examination of his lower legs. No malrotation or obvious deformity. He does not awake to passive range of motion of his lower extremities. He does not appear to have pain with passive logroll bilaterally. He is not appear to have hip irritability with internal/external rotation bilaterally. He does not follow any commands today. Circulatory status is intact. Results - Labs Labs: Abnormal Lab Results - Last 24 Hours (Table) 02/10/17 02/10/17 02/10/17 Range/Units 16:54 21:12 23:34 RBC 3.13 L (4.30-5.90) m/uL Hgb 9.7 L (13.0-17.5) gm/dL Hct 30.1 L (39.0-53.0) % Neutrophils # 7.8 H (1.3-7.7) k/uL Lymphocytes # 0.6 L (1.0-4.8) k/uL ABG pO2 (83-108) mmHg Chloride (98-107) mmol/L BUN (9-20) mg/dL Glucose (74-99) mg/dL POC Glucose (mg/dL) 218 H 237 H (75-99) mg/dL 02/11/17 02/11/17 02/11/17 Range/Units 06:23 06:37 06:37 RBC 3.21 L (4.30-5.90) m/uL Hgb 9.8 L (13.0-17.5) gm/dL Hct 31.3 L (39.0-53.0) % Neutrophils # (1.3-7.7) k/uL Lymphocytes # 0.7 L (1.0-4.8) k/uL ABG pO2 (83-108) mmHg Chloride 108 H (98-107) mmol/L BUN 23 H (9-20) mg/dL Glucose 161 H (74-99) mg/dL POC Glucose (mg/dL) 151 H (75-99) mg/dL 02/11/17 02/11/17 Range/Units 10:15 11:23 RBC (4.30-5.90) m/uL Hgb (13.0-17.5) gm/dL Hct (39.0-53.0) % Neutrophils # (1.3-7.7) k/uL Lymphocytes # (1.0-4.8) k/uL ABG pO2 73 L (83-108) mmHg Chloride (98-107) mmol/L BUN (9-20) mg/dL Glucose (74-99) mg/dL POC Glucose (mg/dL) 176 H (75-99) mg/dL H & H 02/10/17 02/10/17 02/11/17 Range/Units 04:28 23:34 06:37 Hgb 9.2 L D 9.7 L 9.8 L (13.0-17.5) gm/dL Hct 28.7 L 30.1 L 31.3 L (39.0-53.0) % Result Diagrams: 02/11/17 06:37 02/11/17 06:37 Assessment and Plan Plan: This is a 89-year-old gentleman admitted with multiple medical problems. He is seen and evaluated with Dr. John Mera. Patient has pneumonia and was admitted with sepsis. He's had bilateral lower extremity weakness. Upon review of the chart. His exam today is very difficult as he is sleeping and very difficult to awake. He does not appear to have pain with motion of his lower extremities. As noted his exam is quite limited as we are unable to provide any history or participate in the exam. No surgical intervention or orthopedic intervention is planned.
[2017-02-11 16:28] LABS: Glucose,Whole Blood 172 mg/dL (75-99)
[2017-02-11 20:49] LABS: Glucose,Whole Blood 237 mg/dL (75-99)
[2017-02-11] MEDS: MELATONIN 5 MG TABLET PO SCH (21:45)
[2017-02-11] MEDS: ATORVASTATIN 20 MG TAB PO SCH (21:45)
[2017-02-11] MEDS: HYDROcodone/APAP 5-325MG 1 EACH TAB PO PRN (21:45)
[2017-02-11] MEDS: OXYBUTYNIN CHLORIDE 5 MG TAB PO SCH (21:45)
[2017-02-12] MEDS: HYDROcodone/APAP 5-325MG 1 EACH TAB PO PRN ×2 (04:07→21:43)
[2017-02-12] MEDS ORDERED: VANCOMYCIN TROUGH DUE 1 EACH MISC MISCELLANE ONE (05:00)
[2017-02-12 06:06] LABS: Glucose,Whole Blood 182 mg/dL (75-99)
[2017-02-12] MEDS: SODIUM CHLORIDE 0.9% 1,000 ML IV SCH ×2 (06:25→09:51)
[2017-02-12 06:35] LABS: Basophils % (A) 0 %; CH 29.9; CHCM 31.2; Eosinophils # (A) 0.1 k/uL (0-0.7); Eosinophils % (A) 1 %; HDW 2.61; HGB 9.7 gm/dL (13.0-17.5); Hypochromasia Slight; Luc # (Auto) 0.21; Luc % (Auto) 3; Lymphocytes % (A) 11 %; MCH 30.1 pg (25.0-35.0); MCHC 31.2 g/dL (31.0-37.0); MCV 96.4 fL (80.0-100.0); Monocytes # (A) 0.9 k/uL (0-1.0); Monocytes % (A) 11 %; Neutrophils # (A) 6.2 k/uL (1.3-7.7); Neutrophils % (A) 74 %; RBC 3.22 m/uL (4.30-5.90); WBC 8.4 k/uL (3.8-10.6); WBC (Perox) 9.26
[2017-02-12] MEDS: VANCOMYCIN 1,500 MG in SODIUM CHLORIDE 0.9% 250 ML IVPB SCH (06:38)
[2017-02-12] MEDS: INSULIN LISPRO (humaLOG) 300 UNIT/3 ML VIAL SQ SCH ×4 (06:43→22:42)
[2017-02-12 06:45] LABS: Anion Gap 11 mmol/L; Blood Urea Nitrogen 20 mg/dL (9-20); Calcium 8.5 mg/dL (8.4-10.2); Carbon Dioxide 25 mmol/L (22-30); Chloride 105 mmol/L (98-107); Glucose 170 mg/dL (74-99); Non-African American GFR(MDRD) >60 (>60 ml/min/1.73 sqM); Phosphorous 3.4 mg/dL (2.5-4.5); Sodium 141 mmol/L (137-145)
[2017-02-12] MEDS ORDERED: DEXTROSE 5% IN WATER 250 ML with AMIODARONE 300 MG IV ONE (07:00)
[2017-02-12] MEDS: IPRATROPIUM-ALBUTEROL 3 ML NEB INHALATION SCH ×4 (08:03→20:13)
[2017-02-12] MEDS: ASPIRIN 81 MG CHEW PO SCH (09:50)
[2017-02-12] MEDS: HEPARIN SODIUM,PORCINE 5,000 UNIT/ML 1 ML VIAL SQ SCH ×2 (09:50→21:41)
[2017-02-12] MEDS: FAMOTIDINE 20 MG TAB PO SCH (09:50)
[2017-02-12] MEDS: VALSARTAN 80 MG TAB PO SCH (09:51)
--- NOTE | 2017-02-12 10:01 | P.PN ---
Subjective Principal diagnosis: Pneumonia, Sepsis, Weakness This is an 89 year old male who is admitted to the hospital for pneumonia, sepsis and weakness. Orthopedics was consulted due to bilateral lower extremity weakness. Today patient was much more alert and awake. Patient states he has had intermittent bilateral lower extremity weakness for 6 years and chronic back pain. Daughter who was also present in the room states that the patient slid off of his recliner at home on Thursday and was taken to the ER Thursday for generalized weakness. Daughter attributes the weakness to new medication stating the patient was started on 3 new medications when these symptoms started. Daughter states the patient is doing much better today. Daughter also states the patient has a history of osteoarthritis. Patient denies any leg pain , hip pain, knee pain or ankle pain. Patient denies any back pain. Patient states he has a history of back surgery years ago stating they "took out his discs". Patient denies any numbness, tingling, or radicular pain. Objective - Vital Signs Vital signs: Vital Signs Temp 97.1 F L 02/12/17 08:02 Pulse 134 H 02/12/17 08:19 Resp 24 02/12/17 08:02 BP 111/57 02/12/17 08:02 Pulse Ox 92 L 02/12/17 08:02 Intake & Output 02/11/17 02/12/17 02/12/17 18:59 06:59 18:59 Intake Total 820 1400 180 Output Total 800 1700 Balance 20 -300 180 Weight 90 kg Intake: IV 800 800 Sodium Chloride 0.9% 1, 800 800 000 ml @ 100 mls/hr IV . Q10H [facility] Rx#:[id number] Oral 20 600 180 Output: Urine 800 1700 Other: Voiding Method Indwelling Catheter Indwelling Catheter # Bowel Movements 1 1 - Exam Patient has no tenderness to palpation of bilateral lower extremities. Patient has full range of motion with no tenderness and strength 5/5. Sensation is intact. Dorsalis pedis pulses are 2+ bilaterally. Healing abrasions to bilateral knees with no sign of infection or associated tenderness. - Labs CBC & Chem 7: 02/12/17 05:25 02/12/17 05:25 Labs: Abnormal Lab Results - Last 24 Hours (Table) 02/11/17 02/11/17 02/11/17 Range/Units 10:15 11:23 16:27 RBC (4.30-5.90) m/uL Hgb (13.0-17.5) gm/dL Hct (39.0-53.0) % ABG pO2 73 L (83-108) mmHg Glucose (74-99) mg/dL POC Glucose (mg/dL) 176 H 172 H (75-99) mg/dL 02/11/17 02/12/17 02/12/17 Range/Units 20:47 05:25 05:25 RBC 3.22 L (4.30-5.90) m/uL Hgb 9.7 L (13.0-17.5) gm/dL Hct 31.0 L (39.0-53.0) % ABG pO2 (83-108) mmHg Glucose 170 H (74-99) mg/dL POC Glucose (mg/dL) 237 H (75-99) mg/dL 02/12/17 Range/Units 05:49 RBC (4.30-5.90) m/uL Hgb (13.0-17.5) gm/dL Hct (39.0-53.0) % ABG pO2 (83-108) mmHg Glucose (74-99) mg/dL POC Glucose (mg/dL) 182 H (75-99) mg/dL Assessment and Plan (1) History of weakness Status: Acute (2) History of chronic back pain Status: Acute Plan: #1. No surgical or orthopedic intervention is planned. Patient's symptoms of bilateral lower extremity weakness are improving. #2. Follow up in the office if needed.
--- NOTE | 2017-02-12 10:34 | XR ---
EXAMINATION TYPE: XR chest 1V DATE OF EXAM: 02/12/2017 10:04 AM COMPARISON: 02/11/2017 HISTORY: Shortness of breath TECHNIQUE: Single frontal view of the chest is obtained. FINDINGS: There are areas of calcification throughout both lungs which may be pleural. Bilateral inf iltrate and consolidation is stable with small bilateral effusions. Arthropathy right shoulder postsurgical change left shoulder. No pneumothorax. Mild cardiomegaly. Ple ural calcification suggested along the medial margin of the lung. IMPRESSION: 1. Bilateral infiltrate and pleural effusion stable. 2. Pleural-based plaques correlate for asbestosis related disease.
[2017-02-12] MEDS ORDERED: DILTIAZEM 125 MG in SODIUM CHLORIDE 0.9% 100 ML IV SCH (10:45)
[2017-02-12] MEDS: AMIODARONE 200 MG TAB PO SCH ×2 (11:15→21:40)
[2017-02-12 11:55] LABS: Glucose,Whole Blood 210 mg/dL (75-99)
--- NOTE | 2017-02-12 12:45 | P.PN ---
Subjective Principal diagnosis: Acute sepsis This is an 89-year-old white male with multiple medical problems including diabetes, degenerative joint disease, hypertension, coronary artery disease and previous stent placement, patient was seen by his primary care physician a few days ago with complaints of weakness and generalized aches and pains. Patient was placed on a course of prednisone burst and taper, he was also placed on gabapentin, and Flexeril. Over the last 2 days and over the weekend, patient has been getting weaker and weaker. To the point that he is unable to walk. Apparently the patient was unable to even hold steady on a chair, he fell off the chair at one point. And according to the early this morning he fell off the bed, and she could not put him back to bed. Hence EMS was notified, and patient was brought into the ER. Workup in the ER included CBC which was relatively normal. Basic metabolic profile was normal except for elevated BUN of 44 and creatinine of 1.63. Lactic acid was 4.6. And troponin was elevated, proBNP level was elevated patient was given fluid boluses, he went on to develop some mild component of failure, although her chest x-ray is mostly consistent with asbestos associated lung disease. Considering the presentation and his multiple constitutional symptoms, considering his elevated lactic acid, patient was felt to be possibly septic, admitted to the ICU and I was asked to see him on consultation. Placed empirically on antibiotics, given fluid boluses , did not require norepinephrine, after arrival to the ICU I had to diurese the patient since he was developing some component of pulmonary edema. Cultures are pending at the time of dictation including blood cultures and urine cultures. Patient was placed empirically on vancomycin and Levaquin. And on aztreonam. I went ahead and discontinued his gabapentin and Flexeril, this is based on the fact that the patient's constitutional symptoms have become much worse and weakness was noted to be much worse after he was started on gabapentin and Flexeril. Patient was reevaluated today on 02/10/2017, seems to be doing a bit better, he is hemodynamically stable, less shortness of breath and maintained on Lasix for his fluid overload. Did not require any norepinephrine. Cultures of the urine and blood remain negative. CBC is relatively normal except for hemoglobin of 9.2. BUN and creatinine are improving, BUN is 31 creatinine is 1.40 today. Electrolytes are relatively unremarkable. His creatinine on admission was 1.63. Chest x-ray is showing evidence of bilateral pleural effusions, and asbestos associated lung disease. Hence patient will be placed on a maintenance dose of Lasix. Echocardiogram is relatively unremarkable good LV function was noted. patient was reevaluated today on 02/11/2017, apparently overnight the patient has been restless and agitated, and he was given Haldol and Ativan, patient seems to be quite weak on examination today, opens eyes, noted to be a bit tachypneic, but his ABG is relatively unremarkable, is not reflecting a significant hypoxemia and is not reflectng hypercapnia. ABG on 40% showed a pO2 of 73 pCO2 of 35 pH of 7.43. hence I recommended BiPAP, his last x-ray showed mostly findings of asbestos associated lung disease and possibly some component of congestive heart failure. basic metabolic profile is normal. renal profile is relatively normal. blood sugar is 176. On 02/12/2017, patient seems to be doing much better compared to yesterday. He seems to be more awake today, and more appropriate. Chest x-ray however is showing worsening interstitial edema, with underlying asbestos associated lung disease. Possibility of underlying infiltrates is not entirely ruled out, patient could have had an episode of aspiration but again this is felt to be less likely. I feel the findings are mostly findings of interstitial edema. Patient has no white count, and he has no fever. Hence I will go ahead and recommend aggressive diuresis and cut down his IV fluid to KVO. Patient has been on antibiotics all along. Lasix was added today 40 mg IV push every 12 hours. And a follow-up chest x-ray will be reviewed in a.m. Again the findings on the chest x-ray are not findings of pneumonia they are more findings of congestive heart failure. Objective - Vital Signs Vital signs: Vital Signs Temp 97.1 F L 02/12/17 08:02 Pulse 121 H 02/12/17 11:49 Resp 20 02/12/17 11:29 BP 108/73 02/12/17 11:14 Pulse Ox 98 02/12/17 11:14 Intake & Output 02/11/17 02/12/17 02/12/17 18:59 06:59 18:59 Intake Total 820 1400 180 Output Total 800 1700 Balance 20 -300 180 Weight 90 kg Intake: IV 800 800 Sodium Chloride 0.9% 1, 800 800 000 ml @ 100 mls/hr IV . Q10H [facility] Rx#:[id number] Oral 20 600 180 Output: Urine 800 1700 Other: Voiding Method Indwelling Catheter Indwelling Catheter Indwelling Catheter # Bowel Movements 1 1 - Exam General: patient is awake, in no form of respiratory distress, seems to be more appropriate today. HEENT: [PERRL. EOMI. No pharyngeal erythema or exudate.] Neck: [No adenopathy.] Cardiac: [Heart regular in rate and rhythm. No S3. No S4. No clicks, rubs. No murmur.] Lungs: Crackles at the bases bilaterally. Abdomen: [No mass. No organomegaly. Bowel sounds presnt and normoactive in all 4 quadrants.] Extremes: [No edema no cyanosis no claudication normal pulses. Weakness bilateral lower extremes : [] Musculoskeletal: [No joint erythema, edema or tenderness.] Skin: [No rash.] Neurologic: [No lateralizing deficits. CN II - XII grossly intact.] Lymphatic: [No adenopathy.] - Labs CBC & Chem 7: 02/12/17 05:25 02/12/17 05:25 Labs: Abnormal Lab Results - Last 24 Hours (Table) 02/11/17 02/11/17 02/12/17 Range/Units 16:27 20:47 05:25 RBC (4.30-5.90) m/uL Hgb (13.0-17.5) gm/dL Hct (39.0-53.0) % Glucose 170 H (74-99) mg/dL POC Glucose (mg/dL) 172 H 237 H (75-99) mg/dL 02/12/17 02/12/17 02/12/17 Range/Units 05:25 05:49 11:36 RBC 3.22 L (4.30-5.90) m/uL Hgb 9.7 L (13.0-17.5) gm/dL Hct 31.0 L (39.0-53.0) % Glucose (74-99) mg/dL POC Glucose (mg/dL) 182 H 210 H (75-99) mg/dL Assessment and Plan Plan: Impression: 1 acute presentation of multiple constitutional symptoms mostly symptoms of profound weakness, exact etiology is not clear, however the possibility of sepsis would have to be considered especially with elevated lactic acid, however lactic acid normalized with fluid boluses only. No specific source of infection could be identified, although the presentation was felt to be a presentation of sepsis. I reviewed the chest x-ray, the findings on the chest x -ray are mostly findings of congestive heart failure rather than pneumonia. And the patient will need to be aggressively diuresed. Follow-up chest x-ray will be re-done in a.m. 2 asbestos associated lung disease, and suspect some underlying component of congestive heart failure/diastolic dysfunction. 3 acute kidney injury, most likely secondary to hypotension upon presentation. Improving based on the labs on 02/11/2017. 4 possible non-ST elevation myocardial infarction with elevated troponin on presentation, patient will have an echocardiogram, and cardiac consultation. Recommendation: Continue present supportive care measures, patient be diuresed, follow-up chest x-ray was ordered to be done in a.m., he may need some physical therapy for his ongoing weakness patient was seen by orthopedics for back pain and lower extremities weakness. We'll continue to follow. Time with Patient: Less than 30
--- NOTE | 2017-02-12 13:11 | P.PN ---
Subjective Principal diagnosis: Patient is an 89-year-old white male, patient of Dr. Hadley in the outpatient setting, with a medical history significant for diabetes, degenerative joint disease, hypertension, coronary artery disease with previous stent placement, and chronic back pain. Patient was recently placed on Neurontin and Flexeril and prednisone taper for back pain. Patient presented to the emergency department with chief complaints of weakness and inability to walk. Patient was found to have evidence of elevated lactic acid and hypotension and was treated for possible sepsis with fluids and broad-spectrum antibiotics. Patient did have slightly elevated troponins and elevated BNP and consult to cardiology was requested. Patient was admitted to the intensive care unit with consult to Dr. Hartley for ICU management. 02/10/2017: Patient is evaluated in the intensive care unit. Patient reports feeling better than yesterday. Denies chills, fevers, nausea, vomiting, increased shortness of breath, chest pain, or abdominal pain. Patient complains of back pain. Chest x-ray from this morning with evidence of bilateral pleural effusions and asbestos associated lung disease. Renal function improving. Hemoglobin decreased to 9.2 from 11 yesterday. Echocardiogram with preserved LV function of 55-60%. No evidence of pulmonary hypertension. Patient has not required any vasopressors for hemodynamic support. Patient continues on IV antibiotics for empiric coverage. Final urine culture negative. Preliminary blood cultures with no growth after 24 hours. 02/12/2017: Patient is an 89-year-old white male, patient of Dr. Hadley in the outpatient setting, with a medical history significant for diabetes, degenerative joint disease, hypertension, coronary artery disease with previous stent placement, and chronic back pain. Patient was recently placed on Neurontin and Flexeril and prednisone taper for back pain. Patient presented to the emergency department with chief complaints of weakness and inability to walk. Patient was found to have evidence of elevated lactic acid and hypotension and was treated for possible sepsis with fluids and broad-spectrum antibiotics. Patient did have slightly elevated troponins and elevated BNP and consult to cardiology was requested. Patient was admitted to the intensive care unit with consult to Dr. Hartley for ICU management. 02/10/2017: Patient is evaluated in the intensive care unit. Patient reports feeling better than yesterday. Denies chills, fevers, nausea, vomiting, increased shortness of breath, chest pain, or abdominal pain. Patient complains of back pain. Chest x-ray from this morning with evidence of bilateral pleural effusions and asbestos associated lung disease. Renal function improving. Hemoglobin decreased to 9.2 from 11 yesterday. Echocardiogram with preserved LV function of 55-60%. No evidence of pulmonary hypertension. Patient has not required any vasopressors for hemodynamic support. Patient continues on IV antibiotics for empiric coverage. Final urine culture negative. Preliminary blood cultures with no growth after 24 hours. 02/11/2017: Patient is evaluated on selective care unit where he is minimally responsive to painful stimuli. According to nursing staff and chart, patient became agitated last night which required initiation of restraints and chemical sedation. In reviewing vital signs, patient did have a temperature of 102.6 around midnight last night. Patient is currently unable to provide any history as he has quite lethargic. Blood gases did not reveal any significant hypoxemia or hypercapnia. Due to patient's decreased mental status, patient was placed on BiPAP in collaboration with Dr. Hartley, pulmonary pile trimmer. Chest x-ray with evidence of asbestos associated lung disease and possibly component of congestive heart failure. Cardiology consult has been requested. In reviewing lab work, creatinine has improved to 1.19. Preliminary blood cultures with no growth after 48 hours. 02/12/2017: Patient is evaluated on selective care unit. Patient's mental state has significantly improved. Patient complains of congested cough. Patient denies back or neck pain. Patient did develop atrial fibrillation with RVR last night and was started on IV amiodarone. Heart rate remains around 130 this morning. Patient is currently on 4 L nasal cannula with oxygen saturation of 98%. Chest x-ray with evidence of bilateral infiltrate and stable pleural effusions and again shows pleural-based plaques consistent with asbestos related disease. Preliminary urine culture negative after 78 hours. Patient has been evaluated by pulmonary service feels worsening chest x-ray are more consistent with congestive heart failure than pneumonia. Objective - Vital Signs Vital signs: Vital Signs Temp 97.1 F L 02/12/17 08:02 Pulse 121 H 02/12/17 11:49 Resp 20 02/12/17 11:29 BP 108/73 02/12/17 11:14 Pulse Ox 98 02/12/17 11:14 Intake & Output 02/11/17 02/12/17 02/12/17 18:59 06:59 18:59 Intake Total 820 1400 180 Output Total 800 1700 Balance 20 -300 180 Weight 90 kg Intake: IV 800 800 Sodium Chloride 0.9% 1, 800 800 000 ml @ 100 mls/hr IV . Q10H [facility] BEDS AT [facility] Rx#:[id number] Oral 20 600 180 Output: Urine 800 1700 Other: Voiding Method Indwelling Catheter Indwelling Catheter Indwelling Catheter # Bowel Movements 1 1 - Exam GENERAL: Pt awake and alert, in no acute distress. HEAD: Atraumatic, normocephalic. EYES: Pupils equal, round, and reactive to light, sclera anicteric, conjunctiva are normal. ENT: Moist mucous membranes. NECK: Supple without lymphadenopathy or JVD. LUNGS: Breath sounds with expiratory wheezing and crackles to posterior bases bilaterally. HEART: Heart S1, S2, no S3 or S4. Irregularly irregular. No murmurs, rubs or gallops. ABDOMEN: Soft, nontender, nondistended, normoactive bowel sounds. No guarding, no rebound. No masses or organomegaly appreciated. EXTREMITIES: 2+ peripheral pulses. No edema. NEUROLOGICAL: Pt awake and alert. No gross neurological deficits noted. Speaks coherently. SKIN: Warm, dry. No rashes or lesions. - Labs CBC & Chem 7: 02/12/17 05:25 02/12/17 05:25 Labs: Abnormal Lab Results - Last 24 Hours (Table) 02/11/17 02/11/17 02/12/17 Range/Units 16:27 20:47 05:25 RBC (4.30-5.90) m/uL Hgb (13.0-17.5) gm/dL Hct (39.0-53.0) % Glucose 170 H (74-99) mg/dL POC Glucose (mg/dL) 172 H 237 H (75-99) mg/dL 02/12/17 02/12/17 02/12/17 Range/Units 05:25 05:49 11:36 RBC 3.22 L (4.30-5.90) m/uL Hgb 9.7 L (13.0-17.5) gm/dL Hct 31.0 L (39.0-53.0) % Glucose (74-99) mg/dL POC Glucose (mg/dL) 182 H 210 H (75-99) mg/dL Assessment and Plan Plan: Impression and plan: 1. Acute diastolic congestive heart failure, present on admission. Lasix has been increased to 40 mg IV every 12 hours. 2. Severe weakness, present on admission, exact etiology unknown, possible sepsis. Continue IV antibiotics and await blood culture result. Orthopedic service has seen and evaluated patient, recommendations noted. 3. Asbestos associated lung disease. 4. Acute kidney injury, present on admission, suspect secondary to intravascular volume depletion secondary to hypotension, resolved. 5. Elevated troponins, present on admission, not consistent with acute coronary syndrome, likely secondary to oxygen supply demand mismatch. Echocardiogram with normal left ventricular systolic function. 6. Bilateral pleural effusions. Continue Lasix. 7. Bilateral lower extremity weakness, chronic. Lower extremity arterial Doppler from 11/08/2014 showed normal study. 8. History of prostate cancer. Patient follows with urologist Dr. Coffey. 9. History of sigmoid diverticulosis. 10. Hyperlipidemia. 11. Paroxysmal atrial fibrillation, patient currently in atrial fibrillation with rapid ventricular response.. 12. Acute metabolic encephalopathy, suspect secondary to sepsis, improved. 13. Acute hypoxic respiratory failure suspect secondary to sepsis and possible medication induced, improved. Continue to monitor patient. Continue current medications. Continue supportive treatment and pain management. Continue GI and DVT prophylaxis. Continue PT and OT. Continue to follow with consultants. Repeat CBC and BMP in a.m. The above impression and plan have been discussed and directed by Dr. Wagner. Megha JOHNSON acting as scribe for Dr. Wagner.
[2017-02-12] MEDS: FUROSEMIDE 10 MG/ML 4 ML VIAL IV SCH ×2 (15:09→21:41)
--- NOTE | 2017-02-12 15:43 | P.PN ---
Subjective This is an 89-year-old gentleman with history of coronary artery disease and prior stenting of the circumflex in 2008, diabetes, hypertension, paroxysmal atrial fibrillation, hyperlipidemia, family history of premature coronary artery disease, he follows with Dr. Killian in the office. Patient presents to the hospital primarily with symptoms of progressively worsening weakness to the point where he is unable to walk. He was brought to the emergency room by EMS. Initial CBC on presentation was relatively normal, BUN on admission 44, creatinine 1.6. Lactic acid was 4.6. BNP level on admission 4500, troponins 0.12, 0.10. EKG on admission showed sinus tachycardia. 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 And bilateral pleural effusions. He was originally admitted to the ICU with suspicion of possible sepsis and empirically started on antibiotics as well as IV fluids. Urine and blood cultures negative. Hemoglobin 9.7. Patient was diuresed with Lasix in the intensive care unit. Echocardiogram with Doppler study was performed which revealed an ejection fraction of 55-60%. Cardiology consultation was requested because of abnormal troponin values. Troponin values not consistent with acute coronary syndrome, likely secondary to oxygen supply and demand mismatch. Would recommend to continue IV antibiotics for treatment of sepsis. Patient's heart rate was in the night last night, A. fib with RVR. Hemoglobin today 9.7, potassium 4.0, BUN 20, creatinine 1.10. He was initiated on a Cardizem drip which she continues to be on a 5 mg per hour. Continues to be on Lasix 40 mg IV daily. Chest x-ray findings continue to show congestive cardiac failure. Objective - Vital Signs Vital signs: Vital Signs Temp 97.1 F L 02/12/17 08:02 Pulse 122 H 02/12/17 15:20 Resp 20 02/12/17 11:29 BP 108/73 02/12/17 11:14 Pulse Ox 98 02/12/17 11:14 Intake & Output 02/11/17 02/12/17 02/12/17 18:59 06:59 18:59 Intake Total 820 1400 470 Output Total 800 1700 450 Balance 20 -300 20 Weight 90 kg Intake: IV 800 800 160 Sodium Chloride 0.9% 1, 800 800 000 ml @ 100 mls/hr IV . Q10H [facility] Rx#:[id number] Sodium Chloride 0.9% 1, 160 000 ml @ 20 mls/hr IV . Q24H [facility] Rx#:[id number] Intake, IV Titration 40 Amount Diltiazem 125 mg In 40 Sodium Chloride 0.9% 100 ml @ 5 MG/HR 5 mls/hr IV .Q24H [facility] Rx#:[id number] Oral 20 600 270 Output: Urine 800 1700 450 Other: Voiding Method Indwelling Catheter Indwelling Catheter Indwelling Catheter # Bowel Movements 1 1 - Exam PHYSICAL EXAMINATION: HEENT: Head is atraumatic, normocephalic. Pupils equal, round. Neck is supple. There is no elevated jugular venous pressure. HEART EXAMINATION: Heart S1, S2 normal. No murmur or gallop heard. CHEST EXAMINATION: Lungs reveal crackles bilaterally to the posterior bases. ABDOMEN: Soft, nontender. Bowel sounds are heard. No organomegaly noted. EXTREMITIES: 2+ peripheral pulses with no evidence of peripheral edema and no calf tenderness noted. NEUROLOGIC patient is awake, alert and oriented -3. . - Labs CBC & Chem 7: 02/12/17 05:25 02/12/17 05:25 Labs: Abnormal Lab Results - Last 24 Hours (Table) 02/11/17 02/11/17 02/12/17 Range/Units 16:27 20:47 05:25 RBC (4.30-5.90) m/uL Hgb (13.0-17.5) gm/dL Hct (39.0-53.0) % Glucose 170 H (74-99) mg/dL POC Glucose (mg/dL) 172 H 237 H (75-99) mg/dL 02/12/17 02/12/17 02/12/17 Range/Units 05:25 05:49 11:36 RBC 3.22 L (4.30-5.90) m/uL Hgb 9.7 L (13.0-17.5) gm/dL Hct 31.0 L (39.0-53.0) % Glucose (74-99) mg/dL POC Glucose (mg/dL) 182 H 210 H (75-99) mg/dL Assessment and Plan Plan: Assessment and plan #1 profound weakness, likely secondary to sepsis. #2 abnormal troponins, not consistent with acute coronary syndrome, likely secondary to oxygen supply and demand mismatch. Echocardiogram with Doppler study was performed which revealed normal left ventricular systolic function. Most recent Lexiscan stress test was performed at the end of October which was reported to be negative for any reversible ischemia. #3 asbestosis and associated lung disease #4 diabetes #5 hypertension #6 hyperlipidemia #7 known history of coronary artery disease with prior stent placement in the circumflex in 2008 #8 paroxysmal atrial fibrillation #9 diastolic congestive heart failure acute on chronic Plan Patient was given a one-time dose of amiodarone bolus last night, today initiated on amiodarone 400 mg one tablet by mouth twice a day for more optimal heart rate control. We will discontinue the IV Cardizem. Continue current dose of IV Lasix. Check lytes BUN and creatinine in the morning and continue to monitor heart rate. DNP note has been reviewed, I agree with a documented findings and plan of care. Patient was seen and examined.
[2017-02-12] MEDS: LEVOFLOXACIN 750 MG TAB PO SCH (16:37)
[2017-02-12] MEDS: METOPROLOL TARTRATE 25 MG TAB PO SCH ×2 (16:37→21:42)
[2017-02-12 16:46] LABS: Glucose,Whole Blood 215 mg/dL (75-99)
--- NOTE | 2017-02-12 18:57 | P.CONS ---
History of Present Illness - Reason for Consult Consult date: 02/11/17 - Chief Complaint Increasing fatigue and shortness of breath - History of Present Illness 89-year-old male who is a known history of asbestosis was sitting lung disease as well as diabetes, general joint disease and heart disease is having difficulty for the last several weeks. The patient has been to the emergency center several times because of weakness and difficulty with his breathing. January 31 he came to the ER there was a concern to possible urinary infection urinalysis and culture were negative. Computed tomography scan was performed without evidence of acute changes. The patient recently has been following with Dr. Coffey was diagnosed him with prostate cancer. The staging and extent is unclear sensitives are somewhat new diagnosis. He is yet to be treated with any particular chemotherapy agents or hormones yet. After the recent ER visit he was seen by his primary care physician. His back pain was worsening. He constantly was treated with steroids as well as a muscle relaxant. It appears in the days after that he's had a marked change of status. He became weaker unable to navigate and had a fall. Consequently he was brought to Hospital for further intervention. At arrival there is evidence of some hypotension and is concerned for sepsis. He received fluid resuscitation and then needed diuresis because of his underlying cardiac and pulmonary disease. He's been treated with several antibiotics. Because of concerns to pneumonia given his significant underlying lung disease the infectious diseases consultation was requested. Review of Systems HEENT:Denies headache or acute visual change. Denies sinus or mouth discomforts. Denies neck stiffness or pain. Denies significant oral cavity pain. Denies difficulty on swallowing. Lungs: Shortness of breath chronic cough production or hemoptysis Cardiovascular: Denying chest pains or pressures. He has chronic shortness of breath he does have dyspnea on exertion orthopnea Gastrointestinal:Denies nausea, vomiting, diarrhea, constipation, hematemesis, melena, hematochezia. No no significant change of bowel habit noticed. Musculoskeletal: denies significant myalgias or arthralgias. No new joint swelling. Denies new back pain. Skin: Denies new rash or lesions. No new ulcers or wounds are related.. Neuro: Denies headache or visual change. Significant weakness falls that have worsened recently in the last several days Psychiatric:Denies anxiety or depression. Endocrine: He has had some weight loss family is unsure how much Past Medical History Past Medical History: Cancer, Diabetes Mellitus, Hyperlipidemia, Hypertension, Osteoarthritis (OA), Pneumonia, Prostate Disorder Additional Past Medical History / Comment(s): NIDDM type II, low back pain-on steroids for this, osteoarthritis multiple joints, BPH, skin cancer with removals, vertigo at times History of Any Multi-Drug Resistant Organisms: None Reported Past Surgical History: Back Surgery, Heart Catheterization With Stent, Hernia Repair, Joint Replacement, Orthopedic Surgery, Prostate Surgery Additional Past Surgical History / Comment(s): 2008 PCI with stent, lumbar back sx, cortisone injections bilateral knees currently, TURP, total L shoulder arthroplasty, bilateral inguinal hernia repairs, bilateral cataract removal with lens implants, colonoscopy, skin cancer lesions removed from chest/back. Past Anesthesia/Blood Transfusion Reactions: No Reported Reaction Date of Last Stent Placement:: 2008 Past Psychological History: No Psychological Hx Reported Additional Psychological History / Comment(s): Pt resides with his spouse. He usually uses a cane but d/t increased recent leg weakness he has been using a walker. Pt has difficulty standing. He normally can drive. Retired. No experience. Lives with his and has adult daughters who are helpful. No recent travels. No current tobacco or alcohol use. No animal exposures Smoking Status: Former smoker Past Alcohol Use History: Rare Additional Past Alcohol Use History / Comment(s): Pt started smoking in 1944. He has smoked both pipe and cigarettes. He quit pipe smoking in 1973 and cigarette smoking in 1983. Past Drug Use History: None Reported - Past Family History Father Family Medical History: Cancer Additional Family Medical History / Comment(s): Father of esophageal cancer at the age of 78yrs. Mother Family Medical History: No Reported History Additional Family Medical History / Comment(s): Mother was healthy and at the age of 97yrs. Medications and Allergies Home Medications and Allergies Comment(s): Current Medications Acetaminophen/Codeine Phosphate (Tylenol #3) 1 each PO Q6H PRN PRN Reason: Pain Last Admin: 02/10/17 23:24 Dose: 1 each Hydrocodone Bitart/Acetaminophen ([place] 5-325) 1 each PO TID PRN PRN Reason: Pain Last Admin: 02/10/17 21:04 Dose: 1 each Albuterol/Ipratropium (Duoneb 0.5 Mg-3 Mg/3 Ml Soln) 3 ml INHALATION RT-QID [facility] Last Admin: 02/11/17 20:31 Dose: 3 ml Aspirin (Aspirin) 81 mg PO DAILY [facility] Last Admin: 02/11/17 15:53 Dose: Not Given Atorvastatin Calcium (Lipitor) 20 mg PO HS [facility] Last Admin: 02/10/17 21:05 Dose: 20 mg Famotidine (Pepcid) 20 mg PO DAILY [facility] Last Admin: 02/11/17 15:53 Dose: Not Given Heparin Sodium (Porcine) (Heparin) 5,000 unit SQ Q12HR [facility] Last Admin: 02/11/17 15:53 Dose: Not Given Sodium Chloride (Saline 0.9%) 1,000 mls @ 100 mls/hr IV .Q10H [facility] Last Admin: 02/11/17 16:02 Dose: Not Given Vancomycin HCl 1,500 mg/ (Sodium Chloride) 250 mls @ 125 mls/hr IVPB Q24H [facility] Last Admin: 02/11/17 09:05 Dose: 125 mls/hr Acetaminophen 1,000 mg/ IV (Solution) 100 mls @ 400 mls/hr IVPB Q6HR PRN PRN Reason: Fever Stop: 02/12/17 00:26 Last Admin: 02/11/17 11:51 Dose: 400 mls/hr Insulin Human Lispro (Humalog) 0 unit SQ ACHS [facility] PRN Reason: Protocol Last Admin: 02/11/17 17:13 Dose: Not Given Levofloxacin (Levaquin) 750 mg PO Q48H [facility] Melatonin (Melatonin) 5 mg PO [facility] Last Admin: 02/10/17 21:05 Dose: 5 mg Miscellaneous Information (Potassium Per Protocol) 1 each MISCELLANE DAILY PRN ; Protocol PRN Reason: Per Protocol Miscellaneous Information (Magnesium Per Protocol) 1 each MISCELLANE DAILY PRN ; Protocol PRN Reason: Per Protocol Miscellaneous Information (Vancomycin Trough Due) 0 each MISCELLANE DIRECTED ONE Stop: 02/12/17 05:01 Naloxone HCl (Narcan) 0.2 mg IV Q2M PRN PRN Reason: Opioid Reversal Oxybutynin Chloride (Ditropan) 5 mg PO [facility] Last Admin: 02/10/17 21:05 Dose: 5 mg Valsartan (Diovan) 80 mg PO DAILY [facility] Last Admin: 02/11/17 15:54 Dose: Not Given Home Medications Medication Instructions Recorded Confirmed Type Acetaminophen-Codeine 300-30mg 1 tab PO Q6H PRN 01/24/17 02/09/17 History [Tylenol #3] Atorvastatin [Lipitor] 20 mg PO HS 01/24/17 02/09/17 History HYDROcodone/APAP 5-325MG [[place] 1 tab PO TID PRN 01/24/17 02/09/17 History 5-325] Melatonin 5 mg PO HS 01/24/17 02/09/17 History Oxybutynin Chloride [Ditropan] 5 mg PO HS 01/24/17 02/09/17 History Valsartan [Diovan] 80 mg PO DAILY 01/24/17 02/09/17 History metFORMIN HCL [Glucophage] 1,000 mg PO BID 01/24/17 02/09/17 History Aspirin [Adult Low Dose Aspirin EC] 81 mg PO DAILY 02/09/17 02/09/17 History Cyclobenzaprine [Flexeril] 5 mg PO TID 02/09/17 02/09/17 History Gabapentin [Neurontin] 300 mg PO TID 02/09/17 02/09/17 History Vicks Zzz-Quil Capsules 1 cap PO HS PRN 02/09/17 02/09/17 History predniSONE See Taper PO DIRECTED 02/09/17 02/09/17 History Allergies Allergy/AdvReac Type Severity Reaction Status Date / Time aspirin Allergy Rash/Hives Verified 02/09/17 12:13 Penicillins Allergy Rash/Hives Verified 02/09/17 07:25 Physical Exam Vitals: Vital Signs Temp Pulse Pulse Resp BP Pulse Ox 02/11/17 20:34 88 02/11/17 20:22 80 02/11/17 16:20 84 02/11/17 16:07 84 02/11/17 15:51 98.9 F 113 H 18 119/71 94 L 02/11/17 12:55 100 02/11/17 12:47 96 02/11/17 12:00 100 F H 122 H 18 122/74 96 02/11/17 10:17 100.7 F H 100 02/11/17 09:24 104 H 02/11/17 09:16 100 02/11/17 08:00 98.8 F 113 H 18 113/70 95 02/11/17 03:40 98.2 F 105 H 19 125/75 90 L 02/11/17 00:00 102.6 F H 115 H 22 101/87 90 L 02/10/17 23:46 108 H 02/10/17 23:37 104 H 02/10/17 21:11 102.2 F H 112 H 18 125/105 86 L 02/10/17 21:00 102.2 F H 112 H 22 125/105 86 L Intake and Output 02/11/17 02/11/17 02/11/17 06:59 14:59 22:59 Intake Total 1200 800 20 Output Total 600 800 Balance 600 800 -780 Intake: IV 700 800 Sodium Chloride 0.9% 1, 700 800 000 ml @ 100 mls/hr IV . Q10H [facility] Rx#:[id number] Intake, IV Titration 400 Amount ACETAMINOPHEN IV (For NPO 400 ) 1,000 mg In Empty Bag 1 bag @ 400 mls/hr IVPB Q6HR PRN Rx#:[id number] Oral 100 20 Output: Urine 600 800 Other: Voiding Method Indwelling Catheter Indwelling Catheter Indwelling Catheter # Bowel Movements 1 Weight 89 kg 89-year-old male who is comfortable. Apparently early in the day had difficulty with orientation. Currently knows that he is a [facility] in the new name is [facility]. HEENT: Anicteric conjunctiva are pink and moist nasal mucosa grossly intact without significant lesions, there is no thrush. Dentures in place Neck: The neck is supple without significant lymphadenopathy or thyromegaly. Lungs: There is symmetrical air entry. There are crackles and alter breath sounds in the lung zones but has a crunching characteristic no dullness or egophony is noted Heart: Regular rate and rhythm with an audible S1-S2, no S3 positive S4 There is no significant murmur click or rub, PMI was nondisplaced. Abdomen: Positive bowel sounds soft and nontender without palpable masses or organomegaly. There was no guarding or rebound. Extremities: The upper extremities have excellent pulses they are symmetric, no significant petechiae or telangiectasia. No splinter hemorrhages were noted. Trace pedal edema is noted but no lesions are seen Neuro: Awake alert oriented to person place which is improved from earlier today. Was able to follow some simple commands without difficulties. Results CBC & Chem 7: 02/11/17 06:37 02/11/17 06:37 Labs: Abnormal Lab Results - Last 24 Hours (Table) 02/10/17 02/10/17 02/11/17 Range/Units 21:12 23:34 06:23 RBC 3.13 L (4.30-5.90) m/uL Hgb 9.7 L (13.0-17.5) gm/dL Hct 30.1 L (39.0-53.0) % Neutrophils # 7.8 H (1.3-7.7) k/uL Lymphocytes # 0.6 L (1.0-4.8) k/uL ABG pO2 (83-108) mmHg Chloride (98-107) mmol/L BUN (9-20) mg/dL Glucose (74-99) mg/dL POC Glucose (mg/dL) 237 H 151 H (75-99) mg/dL 02/11/17 02/11/17 02/11/17 Range/Units 06:37 06:37 10:15 RBC 3.21 L (4.30-5.90) m/uL Hgb 9.8 L (13.0-17.5) gm/dL Hct 31.3 L (39.0-53.0) % Neutrophils # (1.3-7.7) k/uL Lymphocytes # 0.7 L (1.0-4.8) k/uL ABG pO2 73 L (83-108) mmHg Chloride 108 H (98-107) mmol/L BUN 23 H (9-20) mg/dL Glucose 161 H (74-99) mg/dL POC Glucose (mg/dL) (75-99) mg/dL 02/11/17 02/11/17 Range/Units 11:23 16:27 RBC (4.30-5.90) m/uL Hgb (13.0-17.5) gm/dL Hct (39.0-53.0) % Neutrophils # (1.3-7.7) k/uL Lymphocytes # (1.0-4.8) k/uL ABG pO2 (83-108) mmHg Chloride (98-107) mmol/L BUN (9-20) mg/dL Glucose (74-99) mg/dL POC Glucose (mg/dL) 176 H 172 H (75-99) mg/dL Laboratory Results WBC 8.1 k/uL (3.8-10.6) 02/11/17 06:37 RBC 3.21 m/uL (4.30-5.90) L 02/11/17 06:37 Hgb 9.8 gm/dL (13.0-17.5) L 02/11/17 06:37 Hct 31.3 % (39.0-53.0) L 02/11/17 06:37 MCV 97.4 fL (80.0-100.0) 02/11/17 06:37 MCH 30.6 pg (25.0-35.0) 02/11/17 06:37 MCHC 31.4 g/dL (31.0-37.0) 02/11/17 06:37 RDW 13.1 % (11.5-15.5) 02/11/17 06:37 Plt Count 202 k/uL (150-450) 02/11/17 06:37 Neutrophils % 81 % 02/11/17 06:37 Neutrophils % (Manual) 82.0 % 02/09/17 05:06 Band Neutrophils % 3.0 % 02/09/17 05:06 Lymphocytes % 9 % 02/11/17 06:37 Lymphocytes % (Manual) 8.0 % 02/09/17 05:06 Monocytes % 8 % 02/11/17 06:37 Monocytes % (Manual) 7.0 % 02/09/17 05:06 Eosinophils % 0 % 02/11/17 06:37 Basophils % 0 % 02/11/17 06:37 Neutrophils # 6.5 k/uL (1.3-7.7) 02/11/17 06:37 Neutrophils # (Manual) 9.1 k/uL (1.3-7.7) H 02/09/17 05:06 Lymphocytes # 0.7 k/uL (1.0-4.8) L 02/11/17 06:37 Lymphocytes # (Manual) 0.9 k/uL (1.0-4.8) L 02/09/17 05:06 Monocytes # 0.6 k/uL (0-1.0) 02/11/17 06:37 Monocytes # (Manual) 0.7 k/uL (0-1.0) 02/09/17 05:06 Eosinophils # 0.0 k/uL (0-0.7) 02/11/17 06:37 Basophils # 0.0 k/uL (0-0.2) 02/11/17 06:37 Nucleated RBCs 0 /100 WBC (0-0) 02/09/17 05:06 Manual Slide Review Performed 02/09/17 05:06 Hypochromasia Slight 02/11/17 06:37 PT 11.0 sec (9.0-12.0) 02/09/17 05:06 INR 1.1 (<1.1) 02/09/17 05:06 APTT 25.2 sec (22.0-30.0) 02/09/17 05:06 Sample Site R Radial 02/11/17 10:15 ABG pH 7.43 (7.35-7.45) 02/11/17 10:15 ABG pCO2 35 mmHg (35-45) 02/11/17 10:15 ABG pO2 73 mmHg (83-108) L 02/11/17 10:15 ABG HCO3 23 mmol/L (21-25) 02/11/17 10:15 ABG Total CO2 24 mmol/L (19-24) 02/11/17 10:15 ABG O2 Saturation 95.0 % (94-97) 02/11/17 10:15 ABG Base Excess -1.1 mmol/L 02/11/17 10:15 FiO2 40 % 02/11/17 10:15 Sodium 142 mmol/L (137-145) 02/11/17 06:37 Potassium 4.2 mmol/L (3.5-5.1) 02/11/17 06:37 Chloride 108 mmol/L (98-107) H 02/11/17 06:37 Carbon Dioxide 26 mmol/L (22-30) 02/11/17 06:37 Anion Gap 8 mmol/L 02/11/17 06:37 BUN 23 mg/dL (9-20) H 02/11/17 06:37 Creatinine 1.19 mg/dL (0.66-1.25) 02/11/17 06:37 Est GFR (MDRD) Af Amer >60 (>60 ml/min/1.73 sqM) 02/11/17 06:37 Est GFR (MDRD) Non-Af 58 (>60 ml/min/1.73 sqM) 02/11/17 06:37 Glucose 161 mg/dL (74-99) H 02/11/17 06:37 POC Glucose (mg/dL) 237 mg/dL (75-99) H 02/11/17 20:47 POC Glu Chocolate Molder ID 02/11/17 20:[address] Glu mg/dL 157 mg/dL 02/09/17 05:06 Hemoglobin A1c 7.1 % (4.2-6.1) H 02/09/17 05:06 Plasma Lactic Acid Renzo 1.4 mmol/L (0.7-2.0) 02/10/17 23:34 Calcium 8.4 mg/dL (8.4-10.2) 02/11/17 06:37 Phosphorus 4.4 mg/dL (2.5-4.5) 02/11/17 06:37 Magnesium 2.2 mg/dL (1.6-2.3) 02/11/17 06:37 Total Bilirubin 0.7 mg/dL (0.2-1.3) 02/09/17 05:06 AST 43 U/L (17-59) 02/09/17 05:06 ALT 38 U/L (21-72) 02/09/17 05:06 Alkaline Phosphatase 46 U/L (38-126) 02/09/17 05:06 Troponin I 0.123 ng/mL (0.000-0.034) H* 02/09/17 14:28 NT-Pro-B Natriuret Pep 4500 pg/mL 02/09/17 05:06 Total Protein 6.1 g/dL (6.3-8.2) L 02/09/17 05:06 Albumin 3.3 g/dL (3.5-5.0) L 02/09/17 05:06 Urine Color Yellow 02/09/17 06:05 Urine Appearance Cloudy (Clear) 02/09/17 06:05 Urine pH 5.0 (5.0-8.0) 02/09/17 06:05 Ur Specific [place] 1.012 (1.001-1.035) 02/09/17 06:05 Urine Protein 1+ (Negative) H 02/09/17 06:05 Urine Glucose (UA) Negative (Negative) 02/09/17 06:05 Urine Ketones Negative (Negative) 02/09/17 06:05 Urine Blood Moderate (Negative) H 02/09/17 06:05 Urine Nitrite Negative (Negative) 02/09/17 06:05 Urine Bilirubin Negative (Negative) 02/09/17 06:05 Urine Urobilinogen <2.0 mg/dL (<2.0) 02/09/17 06:05 Ur Leukocyte Esterase Negative (Negative) 02/09/17 06:05 Urine RBC 2 /hpf (0-5) 02/09/17 06:05 Ur Squamous Epith Cells 1 /hpf (0-4) 02/09/17 06:05 Amorphous Sediment Rare /hpf (None) H 02/09/17 06:05 Granular Casts 157 /lpf (0) 02/09/17 06:05 Urine Mucus Rare /hpf (None) H 02/09/17 06:05 Microbiology 02/09/17 05:06 Blood Blood Culture - Preliminary No Growth after 48 hours 02/09/17 06:05 Urine,Voided Urine Culture - Final CT scan - chest: report reviewed, image reviewed (Markedly abnormal chest x-ray due to his underlying asbestosis concerns to heart failure and possibly pneumonia) Assessment and Plan (1) Pneumonia Narrative/Plan: 89-year-old male who is extensive medical troubles that include diabetes heart disease as well as asbestosis presents to Hospital with significant weakness and fall. Patient been treated with significant medications that included a burst of prednisone as well as gabapentin and Flexeril. He then had a marked alteration of his mental status with falls. Presented hospital and was resuscitated. Now doing considerably better and appears to be even better this evening and he was earlier in the day. His lactic acidosis and acute renal failure have all improved. And overall is having improvement further today. Concerned underlying pneumonia given his significant underlying lung disease is receiving alterable antibiotics at this point in time with his penicillin ALLERGY. There does seem to be a significant improvement and would continue current antibiotics while cultures are in process. Likely transition to single agent levofloxacin and the next day if he continues to have improvement. His anemia has worsened over time. It is not likely that his recent diagnosis of prostate cancer is directly influence the issue however is unclear if that is relating to his back pain and await any further information about the workup that's been done regarding that. Current urine and blood cultures are negative it is unlikely his urinary infection since we do have 2 recent urine cultures are both negative. Notes of bacteremia at this time. Continue ongoing supportive care. This information was related to the and daughters were present at the visit. Status: Acute (2) Asbestosis Status: Acute (3) Medication-induced delirium, acute, hypoactive Status: Acute
--- NOTE | 2017-02-12 21:00 | P.PN ---
Subjective Principal diagnosis: Fatigue shortness of breath 89-year-old male who is a known history of asbestosis was sitting lung disease as well as diabetes, general joint disease and heart disease is having difficulty for the last several weeks. The patient has been to the emergency center several times because of weakness and difficulty with his breathing. January 31 he came to the ER there was a concern to possible urinary infection urinalysis and culture were negative. Computed tomography scan was performed without evidence of acute changes. The patient recently has been following with Dr. Coffey was diagnosed him with prostate cancer. The staging and extent is unclear sensitives are somewhat new diagnosis. He is yet to be treated with any particular chemotherapy agents or hormones yet. After the recent ER visit he was seen by his primary care physician. His back pain was worsening. He constantly was treated with steroids as well as a muscle relaxant. It appears in the days after that he's had a marked change of status. He became weaker unable to navigate and had a fall. Consequently he was brought to Hospital for further intervention. At arrival there is evidence of some hypotension and is concerned for sepsis. He received fluid resuscitation and then needed diuresis because of his underlying cardiac and pulmonary disease. He's been treated with several antibiotics. Patient likely has pneumonia as a source of his sepsis. He was improving already in the last 24 hours. He is now transitioned to oral antibiotic therapy to complete the treatment of his pneumonia. Other than the complaints of chronic back pain there is no acute changes today. Objective - Vital Signs Vital signs: Vital Signs Temp 97.5 F L 02/12/17 16:00 Pulse 155 H 02/12/17 16:00 Resp 20 02/12/17 16:44 BP 150/71 02/12/17 16:36 Pulse Ox 93 L 02/12/17 16:00 Intake & Output 02/12/17 02/12/17 02/13/17 06:59 18:59 06:59 Intake Total 1400 710 Output Total 1700 2350 Balance -300 -1640 Weight 90 kg Intake: IV 800 160 Sodium Chloride 0.9% 1, 800 000 ml @ 100 mls/hr IV . Q10H [facility] Rx#:[id number] Sodium Chloride 0.9% 1, 160 000 ml @ 20 mls/hr IV . Q24H [facility] Rx#:[id number] Intake, IV Titration 40 Amount Diltiazem 125 mg In 40 Sodium Chloride 0.9% 100 ml @ 5 MG/HR 5 mls/hr IV .Q24H [facility] Rx#:[id number] Oral 600 510 Output: Urine 1700 2350 Other: Voiding Method Indwelling Catheter Indwelling Catheter # Bowel Movements 1 - Exam 89-year-old male who is comfortable. Apparently early in the day had difficulty with orientation. Currently knows that he is a [facility] in the new name is Nguyen. HEENT: Anicteric conjunctiva are pink and moist nasal mucosa grossly intact without significant lesions, there is no thrush. Dentures in place Neck: The neck is supple without significant lymphadenopathy or thyromegaly. Lungs: There is symmetrical air entry. There are crackles and alter breath sounds in the lung zones but has a crunching characteristic no dullness or egophony is noted Heart: Regular rate and rhythm with an audible S1-S2, no S3 positive S4 There is no significant murmur click or rub, PMI was nondisplaced. Abdomen: Positive bowel sounds soft and nontender without palpable masses or organomegaly. There was no guarding or rebound. Extremities: The upper extremities have excellent pulses they are symmetric, no significant petechiae or telangiectasia. No splinter hemorrhages were noted. Trace pedal edema is noted but no lesions are seen Neuro: Awake alert oriented to person place which is improved from earlier today. Was able to follow some simple commands without difficulties. - Labs CBC & Chem 7: 02/12/17 05:25 02/12/17 05:25 Labs: Abnormal Lab Results - Last 24 Hours (Table) 02/12/17 02/12/17 02/12/17 Range/Units 05:25 05:25 05:49 RBC 3.22 L (4.30-5.90) m/uL Hgb 9.7 L (13.0-17.5) gm/dL Hct 31.0 L (39.0-53.0) % Glucose 170 H (74-99) mg/dL POC Glucose (mg/dL) 182 H (75-99) mg/dL 02/12/17 02/12/17 Range/Units 11:36 16:44 RBC (4.30-5.90) m/uL Hgb (13.0-17.5) gm/dL Hct (39.0-53.0) % Glucose (74-99) mg/dL POC Glucose (mg/dL) 210 H 215 H (75-99) mg/dL Laboratory Results WBC 8.4 k/uL (3.8-10.6) 02/12/17 05:25 RBC 3.22 m/uL (4.30-5.90) L 02/12/17 05:25 Hgb 9.7 gm/dL (13.0-17.5) L 02/12/17 05:25 Hct 31.0 % (39.0-53.0) L 02/12/17 05:25 MCV 96.4 fL (80.0-100.0) 02/12/17 05:25 MCH 30.1 pg (25.0-35.0) 02/12/17 05:25 MCHC 31.2 g/dL (31.0-37.0) 02/12/17 05:25 RDW 13.0 % (11.5-15.5) 02/12/17 05:25 Plt Count 247 k/uL (150-450) 02/12/17 05:25 Neutrophils % 74 % 02/12/17 05:25 Neutrophils % (Manual) 82.0 % 02/09/17 05:06 Band Neutrophils % 3.0 % 02/09/17 05:06 Lymphocytes % 11 % 02/12/17 05:25 Lymphocytes % (Manual) 8.0 % 02/09/17 05:06 Monocytes % 11 % 02/12/17 05:25 Monocytes % (Manual) 7.0 % 02/09/17 05:06 Eosinophils % 1 % 02/12/17 05:25 Basophils % 0 % 02/12/17 05:25 Neutrophils # 6.2 k/uL (1.3-7.7) 02/12/17 05:25 Neutrophils # (Manual) 9.1 k/uL (1.3-7.7) H 02/09/17 05:06 Lymphocytes # 1.0 k/uL (1.0-4.8) 02/12/17 05:25 Lymphocytes # (Manual) 0.9 k/uL (1.0-4.8) L 02/09/17 05:06 Monocytes # 0.9 k/uL (0-1.0) 02/12/17 05:25 Monocytes # (Manual) 0.7 k/uL (0-1.0) 02/09/17 05:06 Eosinophils # 0.1 k/uL (0-0.7) 02/12/17 05:25 Basophils # 0.0 k/uL (0-0.2) 02/12/17 05:25 Nucleated RBCs 0 /100 WBC (0-0) 02/09/17 05:06 Manual Slide Review Performed 02/09/17 05:06 Hypochromasia Slight 02/12/17 05:25 PT 11.0 sec (9.0-12.0) 02/09/17 05:06 INR 1.1 (<1.1) 02/09/17 05:06 APTT 25.2 sec (22.0-30.0) 02/09/17 05:06 Sample Site R Radial 02/11/17 10:15 ABG pH 7.43 (7.35-7.45) 02/11/17 10:15 ABG pCO2 35 mmHg (35-45) 02/11/17 10:15 ABG pO2 73 mmHg (83-108) L 02/11/17 10:15 ABG HCO3 23 mmol/L (21-25) 02/11/17 10:15 ABG Total CO2 24 mmol/L (19-24) 02/11/17 10:15 ABG O2 Saturation 95.0 % (94-97) 02/11/17 10:15 ABG Base Excess -1.1 mmol/L 02/11/17 10:15 FiO2 40 % 02/11/17 10:15 Sodium 141 mmol/L (137-145) 02/12/17 05:25 Potassium 4.0 mmol/L (3.5-5.1) 02/12/17 05:25 Chloride 105 mmol/L (98-107) 02/12/17 05:25 Carbon Dioxide 25 mmol/L (22-30) 02/12/17 05:25 Anion Gap 11 mmol/L 02/12/17 05:25 BUN 20 mg/dL (9-20) 02/12/17 05:25 Creatinine 1.10 mg/dL (0.66-1.25) 02/12/17 05:25 Est GFR (MDRD) Af Amer >60 (>60 ml/min/1.73 sqM) 02/12/17 05:25 Est GFR (MDRD) Non-Af >60 (>60 ml/min/1.73 sqM) 02/12/17 05:25 Glucose 170 mg/dL (74-99) H 02/12/17 05:25 POC Glucose (mg/dL) 215 mg/dL (75-99) H 02/12/17 16:44 POC Glu [employer] Specialist ID Jerald Lucero 02/12/17 16:[address] Glu mg/dL 157 mg/dL 02/09/17 05:06 Hemoglobin A1c 7.1 % (4.2-6.1) H 02/09/17 05:06 Plasma Lactic Acid Renzo 1.4 mmol/L (0.7-2.0) 02/10/17 23:34 Calcium 8.5 mg/dL (8.4-10.2) 02/12/17 05:25 Phosphorus 3.4 mg/dL (2.5-4.5) 02/12/17 05:25 Magnesium 2.0 mg/dL (1.6-2.3) 02/12/17 05:25 Total Bilirubin 0.7 mg/dL (0.2-1.3) 02/09/17 05:06 AST 43 U/L (17-59) 02/09/17 05:06 ALT 38 U/L (21-72) 02/09/17 05:06 Alkaline Phosphatase 46 U/L (38-126) 02/09/17 05:06 Troponin I 0.123 ng/mL (0.000-0.034) H* 02/09/17 14:28 NT-Pro-B Natriuret Pep 4500 pg/mL 02/09/17 05:06 Total Protein 6.1 g/dL (6.3-8.2) L 02/09/17 05:06 Albumin 3.3 g/dL (3.5-5.0) L 02/09/17 05:06 Urine Color Yellow 02/09/17 06:05 Urine Appearance Cloudy (Clear) 02/09/17 06:05 Urine pH 5.0 (5.0-8.0) 02/09/17 06:05 Ur Specific [place] 1.012 (1.001-1.035) 02/09/17 06:05 Urine Protein 1+ (Negative) H 02/09/17 06:05 Urine Glucose (UA) Negative (Negative) 02/09/17 06:05 Urine Ketones Negative (Negative) 02/09/17 06:05 Urine Blood Moderate (Negative) H 02/09/17 06:05 Urine Nitrite Negative (Negative) 02/09/17 06:05 Urine Bilirubin Negative (Negative) 02/09/17 06:05 Urine Urobilinogen <2.0 mg/dL (<2.0) 02/09/17 06:05 Ur Leukocyte Esterase Negative (Negative) 02/09/17 06:05 Urine RBC 2 /hpf (0-5) 02/09/17 06:05 Ur Squamous Epith Cells 1 /hpf (0-4) 02/09/17 06:05 Amorphous Sediment Rare /hpf (None) H 02/09/17 06:05 Granular Casts 157 /lpf (0) 02/09/17 06:05 Urine Mucus Rare /hpf (None) H 02/09/17 06:05 Vancomycin Trough 11.2 ug/mL 02/12/17 05:25 Microbiology 02/09/17 05:06 Blood Blood Culture - Preliminary No Growth after 72 hours 02/09/17 06:05 Urine,Voided Urine Culture - Final Assessment and Plan (1) Pneumonia Narrative/Plan: 89-year-old male who is extensive medical troubles that include diabetes heart disease as well as asbestosis presents to Hospital with significant weakness and fall. Patient been treated with significant medications that included a burst of prednisone as well as gabapentin and Flexeril. He then had a marked alteration of his mental status with falls. Presented hospital and was resuscitated. Now doing considerably better and appears to be even better this evening and he was earlier in the day. His lactic acidosis and acute renal failure have all improved. And overall is having improvement further today. Concerned underlying pneumonia given his significant underlying lung disease is receiving alterable antibiotics at this point in time with his penicillin ALLERGY. There does seem to be a significant improvement and would continue current antibiotics while cultures are in process. Likely transition to single agent levofloxacin and the next day if he continues to have improvement. His anemia has worsened over time. It is not likely that his recent diagnosis of prostate cancer is directly influence the issue however is unclear if that is relating to his back pain and await any further information about the workup that's been done regarding that. Current urine and blood cultures are negative it is unlikely his urinary infection since we do have 2 recent urine cultures are both negative. No evidence of bacteremia at this time. Likely pneumonia and is being treated with levofloxacin with ongoing improvement. Chronic back pain as noted per the family. We'll follow up with urology after discharge Continue ongoing supportive care. This information was related to the and daughter were present at the visit. Status: Acute (2) Asbestosis Status: Acute (3) Medication-induced delirium, acute, hypoactive Status: Acute
[2017-02-12 21:06] LABS: Glucose,Whole Blood 159 mg/dL (75-99)
[2017-02-12] MEDS: MELATONIN 5 MG TABLET PO SCH (21:41)
[2017-02-12] MEDS: ATORVASTATIN 20 MG TAB PO SCH (21:41)
[2017-02-12] MEDS: OXYBUTYNIN CHLORIDE 5 MG TAB PO SCH (21:42)
[2017-02-13] MEDS: VANCOMYCIN 1,500 MG in SODIUM CHLORIDE 0.9% 250 ML IVPB SCH (05:31)
[2017-02-13] MEDS: INSULIN LISPRO (humaLOG) 300 UNIT/3 ML VIAL SQ SCH ×4 (06:30→21:33)
[2017-02-13 06:33] LABS: Glucose,Whole Blood 199 mg/dL (75-99)
[2017-02-13 07:27] LABS: Basophils % (A) 0 %; CHCM 31.4; Eosinophils # (A) 0.1 k/uL (0-0.7); Eosinophils % (A) 1 %; HCT 31.1 % (39.0-53.0); HDW 2.48; HGB 9.8 gm/dL (13.0-17.5); Luc # (Auto) 0.19; Luc % (Auto) 2; Lymphocytes # (A) 0.9 k/uL (1.0-4.8); Lymphocytes % (A) 9 %; MCH 30.2 pg (25.0-35.0); MCHC 31.4 g/dL (31.0-37.0); MCV 96.1 fL (80.0-100.0); Mean Platelet Volume 8.9; Monocytes # (A) 0.6 k/uL (0-1.0); Monocytes % (A) 7 %; Neutrophils # (A) 7.7 k/uL (1.3-7.7); Neutrophils % (A) 81 %; RBC 3.23 m/uL (4.30-5.90); RDW 13.3 % (11.5-15.5); WBC 9.4 k/uL (3.8-10.6)
--- NOTE | 2017-02-13 07:33 | XR ---
EXAMINATION TYPE: XR chest 1V portable DATE OF EXAM: 02/13/2017 7:21 AM COMPARISON: Prior chest x-ray four February 2017 HISTORY: Congestive heart failure TECHNIQUE: Single frontal view of the chest is obtained. FINDINGS: There is no significant interval change. IMPRESSION: Findings may be indicative of congestive heart failure, pneumonia not excluded. This lik vidhi asbestos related disease, cardiomegaly. Follow-up suggested.
[2017-02-13] MEDS: IPRATROPIUM-ALBUTEROL 3 ML NEB INHALATION SCH ×4 (07:40→19:14)
[2017-02-13 07:52] LABS: Anion Gap 12 mmol/L; Blood Urea Nitrogen 24 mg/dL (9-20); Calcium 8.3 mg/dL (8.4-10.2); Carbon Dioxide 27 mmol/L (22-30); Chloride 100 mmol/L (98-107); Glucose 190 mg/dL (74-99); Magnesium 1.6 mg/dL (1.6-2.3); Non-African American GFR(MDRD) 55 (>60 ml/min/1.73 sqM); Phosphorous 3.3 mg/dL (2.5-4.5); Potassium 3.6 mmol/L (3.5-5.1); Sodium 139 mmol/L (137-145)
[2017-02-13] MEDS ORDERED: Magnesium Replacement Protocol 1 EACH MISC MISCELLANE PRN (08:34)
[2017-02-13] MEDS ORDERED: POTASSIUM CHLORIDE ER 20 MEQ TAB.ER PO ONE (10:00)
[2017-02-13] MEDS: MAGNESIUM SULFATE-D5W PMX 1 GM in DEXTROSE/WATER 1 100ML.BAG IVPB SCH ×2 (10:11→11:22)
[2017-02-13] MEDS: AMIODARONE 200 MG TAB PO SCH ×2 (10:12→20:55)
[2017-02-13] MEDS: HEPARIN SODIUM,PORCINE 5,000 UNIT/ML 1 ML VIAL SQ SCH ×2 (10:12→20:55)
[2017-02-13] MEDS: METOPROLOL TARTRATE 25 MG TAB PO SCH (10:12)
[2017-02-13] MEDS: ASPIRIN 81 MG CHEW PO SCH (10:13)
[2017-02-13] MEDS: VALSARTAN 80 MG TAB PO SCH (10:13)
[2017-02-13] MEDS: FUROSEMIDE 10 MG/ML 4 ML VIAL IV SCH ×2 (10:13→20:55)
[2017-02-13] MEDS: FAMOTIDINE 20 MG TAB PO SCH (10:13)
[2017-02-13] MEDS: SODIUM CHLORIDE 0.9% 1,000 ML IV SCH (10:14)
[2017-02-13 12:04] LABS: Glucose,Whole Blood 216 mg/dL (75-99)
[2017-02-13] MEDS ORDERED: METOPROLOL TARTRATE 25 MG TAB PO STA (12:27)
--- NOTE | 2017-02-13 12:43 | P.PN ---
Subjective Principal diagnosis: Acute sepsis This is an 89-year-old white male with multiple medical problems including diabetes, degenerative joint disease, hypertension, coronary artery disease and previous stent placement, patient was seen by his primary care physician a few days ago with complaints of weakness and generalized aches and pains. Patient was placed on a course of prednisone burst and taper, he was also placed on gabapentin, and Flexeril. Over the last 2 days and over the weekend, patient has been getting weaker and weaker. To the point that he is unable to walk. Apparently the patient was unable to even hold steady on a chair, he fell off the chair at one point. And according to the early this morning he fell off the bed, and she could not put him back to bed. Hence EMS was notified, and patient was brought into the ER. Workup in the ER included CBC which was relatively normal. Basic metabolic profile was normal except for elevated BUN of 44 and creatinine of 1.63. Lactic acid was 4.6. And troponin was elevated, proBNP level was elevated patient was given fluid boluses, he went on to develop some mild component of failure, although her chest x-ray is mostly consistent with asbestos associated lung disease. Considering the presentation and his multiple constitutional symptoms, considering his elevated lactic acid, patient was felt to be possibly septic, admitted to the ICU and I was asked to see him on consultation. Placed empirically on antibiotics, given fluid boluses , did not require norepinephrine, after arrival to the ICU I had to diurese the patient since he was developing some component of pulmonary edema. Cultures are pending at the time of dictation including blood cultures and urine cultures. Patient was placed empirically on vancomycin and Levaquin. And on aztreonam. I went ahead and discontinued his gabapentin and Flexeril, this is based on the fact that the patient's constitutional symptoms have become much worse and weakness was noted to be much worse after he was started on gabapentin and Flexeril. Patient was reevaluated today on 02/10/2017, seems to be doing a bit better, he is hemodynamically stable, less shortness of breath and maintained on Lasix for his fluid overload. Did not require any norepinephrine. Cultures of the urine and blood remain negative. CBC is relatively normal except for hemoglobin of 9.2. BUN and creatinine are improving, BUN is 31 creatinine is 1.40 today. Electrolytes are relatively unremarkable. His creatinine on admission was 1.63. Chest x-ray is showing evidence of bilateral pleural effusions, and asbestos associated lung disease. Hence patient will be placed on a maintenance dose of Lasix. Echocardiogram is relatively unremarkable good LV function was noted. patient was reevaluated today on 02/11/2017, apparently overnight the patient has been restless and agitated, and he was given Haldol and Ativan, patient seems to be quite weak on examination today, opens eyes, noted to be a bit tachypneic, but his ABG is relatively unremarkable, is not reflecting a significant hypoxemia and is not reflectng hypercapnia. ABG on 40% showed a pO2 of 73 pCO2 of 35 pH of 7.43. hence I recommended BiPAP, his last x-ray showed mostly findings of asbestos associated lung disease and possibly some component of congestive heart failure. basic metabolic profile is normal. renal profile is relatively normal. blood sugar is 176. On 02/12/2017, patient seems to be doing much better compared to yesterday. He seems to be more awake today, and more appropriate. Chest x-ray however is showing worsening interstitial edema, with underlying asbestos associated lung disease. Possibility of underlying infiltrates is not entirely ruled out, patient could have had an episode of aspiration but again this is felt to be less likely. I feel the findings are mostly findings of interstitial edema. Patient has no white count, and he has no fever. Hence I will go ahead and recommend aggressive diuresis and cut down his IV fluid to KVO. Patient has been on antibiotics all along. Lasix was added today 40 mg IV push every 12 hours. And a follow-up chest x-ray will be reviewed in a.m. Again the findings on the chest x-ray are not findings of pneumonia they are more findings of congestive heart failure. On 02/13/2017, patient continues to do well, obviously he is responding to the combination of diuretics and antibiotics which were given empirically because of his presentation. Patient presented with hypotension requiring fluid boluses and profound weakness. Chest x-ray continues to show significant asbestos associated lung disease, possibility of underlying failure or underlying pneumonia is not entirely ruled out considering his abnormal chest x- ray to begin with. Patient is being treated basically for both. Clinically he is improving. Labs were reviewed WBC count is 9.4 hemoglobin is 9.8 electrolytes are normal BUN is 24 creatinine is 1.24. Objective - Vital Signs Vital signs: Vital Signs Temp 98.1 F 02/13/17 08:50 Pulse 133 H 02/13/17 08:50 Resp 18 02/13/17 08:50 BP 152/75 02/13/17 08:50 Pulse Ox 94 L 02/13/17 08:50 Intake & Output 02/12/17 02/13/17 02/13/17 18:59 06:59 18:59 Intake Total 710 880 180 Output Total 2350 3050 400 Balance -1640 -0 -220 Weight 77.5 kg Intake: IV 160 160 Sodium Chloride 0.9% 1, 160 160 000 ml @ 20 mls/hr IV . Q24H [facility] Rx#:[id number] Intake, IV Titration 40 Amount Diltiazem 125 mg In 40 Sodium Chloride 0.9% 100 ml @ 5 MG/HR 5 mls/hr IV .Q24H [facility] Rx#:[id number] Oral 510 720 180 Output: Urine 2350 3050 400 Other: Voiding Method Indwelling Catheter Toilet Toilet # Voids 1 - Exam General: patient is awake, in no form of respiratory distress, seems to be more appropriate today. HEENT: [PERRL. EOMI. No pharyngeal erythema or exudate.] Neck: [No adenopathy.] Cardiac: [Heart regular in rate and rhythm. No S3. No S4. No clicks, rubs. No murmur.] Lungs: Crackles at the bases bilaterally. Abdomen: [No mass. No organomegaly. Bowel sounds presnt and normoactive in all 4 quadrants.] Extremes: [No edema no cyanosis no claudication normal pulses. Weakness bilateral lower extremes Musculoskeletal: [No joint erythema, edema or tenderness.] Skin: [No rash.] Neurologic: [No lateralizing deficits. CN II - XII grossly intact.] Lymphatic: [No adenopathy.] - Labs CBC & Chem 7: 02/13/17 07:06 02/13/17 12:15 Labs: Abnormal Lab Results - Last 24 Hours (Table) 02/12/17 02/12/17 02/13/17 Range/Units 16:44 20:53 06:22 RBC (4.30-5.90) m/uL Hgb (13.0-17.5) gm/dL Hct (39.0-53.0) % Lymphocytes # (1.0-4.8) k/uL Potassium (3.5-5.1) mmol/L BUN (9-20) mg/dL Glucose (74-99) mg/dL POC Glucose (mg/dL) 215 H 159 H 199 H (75-99) mg/dL Calcium (8.4-10.2) mg/dL 02/13/17 02/13/17 02/13/17 Range/Units 07:06 07:06 11:54 RBC 3.23 L (4.30-5.90) m/uL Hgb 9.8 L (13.0-17.5) gm/dL Hct 31.1 L (39.0-53.0) % Lymphocytes # 0.9 L (1.0-4.8) k/uL Potassium (3.5-5.1) mmol/L BUN 24 H (9-20) mg/dL Glucose 190 H (74-99) mg/dL POC Glucose (mg/dL) 216 H (75-99) mg/dL Calcium 8.3 L (8.4-10.2) mg/dL 02/13/17 Range/Units 12:15 RBC (4.30-5.90) m/uL Hgb (13.0-17.5) gm/dL Hct (39.0-53.0) % Lymphocytes # (1.0-4.8) k/uL Potassium 3.3 L (3.5-5.1) mmol/L BUN (9-20) mg/dL Glucose (74-99) mg/dL POC Glucose (mg/dL) (75-99) mg/dL Calcium (8.4-10.2) mg/dL Assessment and Plan Plan: Impression: 1 acute presentation of multiple constitutional symptoms mostly symptoms of profound weakness, exact etiology is not clear, however the possibility of sepsis would have to be considered especially with elevated lactic acid, however lactic acid normalized with fluid boluses only. No specific source of infection could be identified, although the presentation was felt to be a presentation of sepsis. I reviewed the chest x-ray, the findings on the chest x -ray are mostly findings of congestive heart failure rather than pneumonia. However pneumonia is not entirely ruled out, remains on antibiotics in the form of Levaquin And the patient will need to be aggressively diuresed. Follow-up chest x-ray on outpatient basis postdischarge. 2 asbestos associated lung disease, and suspect some underlying component of congestive heart failure/diastolic dysfunction. 3 acute kidney injury, most likely secondary to hypotension upon presentation. Improving based on the labs on 02/11/2017. 4 possible non-ST elevation myocardial infarction with elevated troponin on presentation, echocardiogram was noted to be relatively unremarkable. Hence we may be dealing with diastolic dysfunction rather than systolic dysfunction. Recommendation: Continue present supportive care measures, continue diuretics. Consider discharge planning today or tomorrow if cleared by other consultants. Time with Patient: Less than 30
--- NOTE | 2017-02-13 13:47 | P.PN ---
Subjective Patient is an 89-year-old white male, patient of Dr. Hadley in the outpatient setting, with a medical history significant for diabetes, degenerative joint disease, hypertension, coronary artery disease with previous stent placement, and chronic back pain. Patient was recently placed on Neurontin and Flexeril and prednisone taper for back pain. Patient presented to the emergency department with chief complaints of weakness and inability to walk. Patient was found to have evidence of elevated lactic acid and hypotension and was treated for possible sepsis with fluids and broad-spectrum antibiotics. Patient did have slightly elevated troponins and elevated BNP and consult to cardiology was requested. Patient was admitted to the intensive care unit with consult to Dr. Hartley for ICU management. 02/10/2017: Patient is evaluated in the intensive care unit. Patient reports feeling better than yesterday. Denies chills, fevers, nausea, vomiting, increased shortness of breath, chest pain, or abdominal pain. Patient complains of back pain. Chest x-ray from this morning with evidence of bilateral pleural effusions and asbestos associated lung disease. Renal function improving. Hemoglobin decreased to 9.2 from 11 yesterday. Echocardiogram with preserved LV function of 55-60%. No evidence of pulmonary hypertension. Patient has not required any vasopressors for hemodynamic support. Patient continues on IV antibiotics for empiric coverage. Final urine culture negative. Preliminary blood cultures with no growth after 24 hours. 02/11/2017: Patient is evaluated on selective care unit where he is minimally responsive to painful stimuli. According to nursing staff and chart, patient became agitated last night which required initiation of restraints and chemical sedation. In reviewing vital signs, patient did have a temperature of 102.6 around midnight last night. Patient is currently unable to provide any history as he has quite lethargic. Blood gases did not reveal any significant hypoxemia or hypercapnia. Due to patient's decreased mental status, patient was placed on BiPAP in collaboration with Dr. Hartley, pulmonary wedding photographer. Chest x-ray with evidence of asbestos associated lung disease and possibly component of congestive heart failure. Cardiology consult has been requested. In reviewing lab work, creatinine has improved to 1.19. Preliminary blood cultures with no growth after 48 hours. 02/12/2017: Patient is evaluated on selective care unit. Patient's mental state has significantly improved. Patient complains of congested cough. Patient denies back or neck pain. Patient did develop atrial fibrillation with RVR last night and was started on IV amiodarone. Heart rate remains around 130 this morning. Patient is currently on 4 L nasal cannula with oxygen saturation of 98%. Chest x-ray with evidence of bilateral infiltrate and stable pleural effusions and again shows pleural-based plaques consistent with asbestos related disease. Preliminary urine culture negative after 78 hours. Patient has been evaluated by pulmonary service feels worsening chest x-ray are more consistent with congestive heart failure than pneumonia. 02/13/2017: Patient is evaluated on selective care unit where he is currently sitting up in a chair. Mental state continues to improve. Patient remains in atrial fibrillation with rapid ventricular response with heart rate and 120s. Patient has been converted to oral amiodarone and started on metoprolol per cardiology for better rate control. Patient reports improvement in breathing and is currently on 2 L nasal cannula with oxygen saturation of 94%. Chest x- ray from this morning with evidence of congestive heart failure and asbestos related disease; possibly pneumonia. Patient remains on Lasix 40 mg IV every 12 hours. Final urine culture negative. Patient has been followed by pulmonary service and infectious disease service. Objective - Vital Signs Vital signs: Vital Signs Temp 98.1 F 02/13/17 08:50 Pulse 123 H 02/13/17 12:12 Resp 18 02/13/17 12:00 BP 142/77 02/13/17 11:40 Pulse Ox 94 L 02/13/17 11:40 Intake & Output 02/12/17 02/13/17 02/13/17 18:59 06:59 18:59 Intake Total 710 880 180 Output Total 2350 3050 400 Balance -1640 -2170 -220 Weight 77.5 kg Intake: IV 160 160 Sodium Chloride 0.9% 1, 160 160 000 ml @ 20 mls/hr IV . Q24H [facility] Rx#:[id number] Intake, IV Titration 40 Amount Diltiazem 125 mg In 40 Sodium Chloride 0.9% 100 ml @ 5 MG/HR 5 mls/hr IV .Q24H [facility] Rx#:[id number] Oral 510 720 180 Output: Urine 2350 3050 400 Other: Voiding Method Indwelling Catheter Toilet Toilet # Voids 1 - Exam GENERAL: Pt awake and alert, in no acute distress. HEAD: Atraumatic, normocephalic. EYES: Pupils equal, round, and reactive to light, sclera anicteric, conjunctiva are normal. ENT: Moist mucous membranes. NECK: Supple without lymphadenopathy or JVD. LUNGS: Breath sounds with crackles to posterior bases bilaterally. No wheezing noted. HEART: Heart S1, S2, no S3 or S4. Irregularly irregular. No murmurs, rubs or gallops. ABDOMEN: Soft, nontender, nondistended, normoactive bowel sounds. No guarding, no rebound. No masses or organomegaly appreciated. EXTREMITIES: 2+ peripheral pulses. No edema. NEUROLOGICAL: Pt awake and alert. No gross neurological deficits noted. Speech coherently. SKIN: Warm, dry. No rashes or lesions. - Labs CBC & Chem 7: 02/13/17 07:06 02/13/17 12:15 Labs: Abnormal Lab Results - Last 24 Hours (Table) 02/12/17 02/12/17 02/13/17 Range/Units 16:44 20:53 06:22 RBC (4.30-5.90) m/uL Hgb (13.0-17.5) gm/dL Hct (39.0-53.0) % Lymphocytes # (1.0-4.8) k/uL Potassium (3.5-5.1) mmol/L BUN (9-20) mg/dL Glucose (74-99) mg/dL POC Glucose (mg/dL) 215 H 159 H 199 H (75-99) mg/dL Calcium (8.4-10.2) mg/dL 02/13/17 02/13/17 02/13/17 Range/Units 07:06 07:06 11:54 RBC 3.23 L (4.30-5.90) m/uL Hgb 9.8 L (13.0-17.5) gm/dL Hct 31.1 L (39.0-53.0) % Lymphocytes # 0.9 L (1.0-4.8) k/uL Potassium (3.5-5.1) mmol/L BUN 24 H (9-20) mg/dL Glucose 190 H (74-99) mg/dL POC Glucose (mg/dL) 216 H (75-99) mg/dL Calcium 8.3 L (8.4-10.2) mg/dL 02/13/17 Range/Units 12:15 RBC (4.30-5.90) m/uL Hgb (13.0-17.5) gm/dL Hct (39.0-53.0) % Lymphocytes # (1.0-4.8) k/uL Potassium 3.3 L (3.5-5.1) mmol/L BUN (9-20) mg/dL Glucose (74-99) mg/dL POC Glucose (mg/dL) (75-99) mg/dL Calcium (8.4-10.2) mg/dL Assessment and Plan Plan: Impression and plan: 1. Acute diastolic congestive heart failure, present on admission. Continue Lasix 40 mg IV every 12 hours. 2. Severe weakness, present on admission, exact etiology unknown, possible sepsis. Continue IV antibiotics. Orthopedic service has seen and evaluated patient, recommendations noted. 3. Asbestos associated lung disease. 4. Acute kidney injury, present on admission, suspect secondary to intravascular volume depletion secondary to hypotension, resolved. 5. Elevated troponins, present on admission, not consistent with acute coronary syndrome, likely secondary to oxygen supply demand mismatch. Echocardiogram with normal left ventricular systolic function. 6. Bilateral lower extremity weakness, chronic. Lower extremity arterial Doppler from 11/08/2014 showed normal study. 8. History of prostate cancer. Patient follows with urologist Dr. Coffey. 9. History of sigmoid diverticulosis. 10. Hyperlipidemia. 11. Paroxysmal atrial fibrillation, patient currently in atrial fibrillation with rapid ventricular response. Continue amiodarone by mouth and metoprolol per cardiology. 12. Acute metabolic encephalopathy, suspect secondary to sepsis, resolved. 13. Acute hypoxic respiratory failure suspect secondary to sepsis and possible medication induced, improved. Continue to monitor patient. Continue current medications. Continue supportive treatment and pain management. Continue GI and DVT prophylaxis. Continue PT and OT. Continue to follow with consultants. Repeat CBC and BMP in a.m. Patient has been evaluated by physical therapy with plans to discharge patient to [facility] for subacute rehab possibly on Thursday. The above impression and plan have been discussed and directed by Dr. Wagner. Megha JOHNSON acting as scribe for Dr. Wagner.
[2017-02-13] MEDS: POTASSIUM CHLORIDE ER 20 MEQ TAB.ER PO SCH ×4 (13:48→18:22)
--- NOTE | 2017-02-13 14:37 | P.PN ---
Subjective Principal diagnosis: This is a pleasant 89-year-old gentleman with a past medical history significant for chronic lung disease, diabetes, hypertension, dyslipidemia, and paroxysmal atrial fibrillation who was admitted to the hospital was acute on chronic respiratory failure secondary to congestive heart failure exacerbation as well as A. fib with RVR. I'll follow-up with him today, he stated that he is feeling slightly better. The shortness of breath is better. He still have bilateral crackles and expiratory wheezing. The heart rate is also slightly uncontrolled. I am going to increase the dose of metoprolol to 50 mg by mouth twice a day. We 'll continue the IV Lasix for additional 24 hours. I will reassess the patient tomorrow. Objective - Vital Signs Vital signs: Vital Signs Temp 98.1 F 02/13/17 08:50 Pulse 123 H 02/13/17 12:12 Resp 18 02/13/17 12:00 BP 142/77 02/13/17 11:40 Pulse Ox 94 L 02/13/17 11:40 Intake & Output 02/12/17 02/13/17 02/13/17 18:59 06:59 18:59 Intake Total 710 880 180 Output Total 2350 3050 400 Balance -1640 -2170 -220 Weight 77.5 kg Intake: IV 160 160 Sodium Chloride 0.9% 1, 160 160 000 ml @ 20 mls/hr IV . Q24H [facility] Rx#:[id number] Intake, IV Titration 40 Amount Diltiazem 125 mg In 40 Sodium Chloride 0.9% 100 ml @ 5 MG/HR 5 mls/hr IV .Q24H [facility] Rx#:[id number] Oral 510 720 180 Output: Urine 2350 3050 400 Other: Voiding Method Indwelling Catheter Toilet Toilet # Voids 1 - Constitutional General appearance: Present: no acute distress - Respiratory Respiratory: bilateral: rhonchi - Cardiovascular Rhythm: irregularly irregular Heart sounds: normal: S1, S2 - Labs CBC & Chem 7: 02/13/17 07:06 02/13/17 12:15 Labs: Abnormal Lab Results - Last 24 Hours (Table) 02/12/17 02/12/17 02/13/17 Range/Units 16:44 20:53 06:22 RBC (4.30-5.90) m/uL Hgb (13.0-17.5) gm/dL Hct (39.0-53.0) % Lymphocytes # (1.0-4.8) k/uL Potassium (3.5-5.1) mmol/L BUN (9-20) mg/dL Glucose (74-99) mg/dL POC Glucose (mg/dL) 215 H 159 H 199 H (75-99) mg/dL Calcium (8.4-10.2) mg/dL 02/13/17 02/13/17 02/13/17 Range/Units 07:06 07:06 11:54 RBC 3.23 L (4.30-5.90) m/uL Hgb 9.8 L (13.0-17.5) gm/dL Hct 31.1 L (39.0-53.0) % Lymphocytes # 0.9 L (1.0-4.8) k/uL Potassium (3.5-5.1) mmol/L BUN 24 H (9-20) mg/dL Glucose 190 H (74-99) mg/dL POC Glucose (mg/dL) 216 H (75-99) mg/dL Calcium 8.3 L (8.4-10.2) mg/dL 02/13/17 Range/Units 12:15 RBC (4.30-5.90) m/uL Hgb (13.0-17.5) gm/dL Hct (39.0-53.0) % Lymphocytes # (1.0-4.8) k/uL Potassium 3.3 L (3.5-5.1) mmol/L BUN (9-20) mg/dL Glucose (74-99) mg/dL POC Glucose (mg/dL) (75-99) mg/dL Calcium (8.4-10.2) mg/dL Assessment and Plan Plan: Assessment Acute on chronic respiratory failure A. fib with uncontrolled heart rate Congestive heart failure secondary to diastolic dysfunction Multiple comorbidities Plan Increase the dose of metoprolol Continue the IV Lasix Continue monitoring the kidney function and electrolytes Follow-up with the patient
[2017-02-13 17:23] LABS: Glucose,Whole Blood 148 mg/dL (75-99)
--- NOTE | 2017-02-13 17:37 | P.PN ---
Subjective Principal diagnosis: Fatigue shortness of breath 89-year-old male who is a known history of asbestosis was sitting lung disease as well as diabetes, general joint disease and heart disease is having difficulty for the last several weeks. The patient has been to the emergency center several times because of weakness and difficulty with his breathing. January 31 he came to the ER there was a concern to possible urinary infection urinalysis and culture were negative. Computed tomography scan was performed without evidence of acute changes. The patient recently has been following with Dr. Coffey was diagnosed him with prostate cancer. The staging and extent is unclear sensitives are somewhat new diagnosis. He is yet to be treated with any particular chemotherapy agents or hormones yet. After the recent ER visit he was seen by his primary care physician. His back pain was worsening. He constantly was treated with steroids as well as a muscle relaxant. It appears in the days after that he's had a marked change of status. He became weaker unable to navigate and had a fall. Consequently he was brought to Hospital for further intervention. At arrival there is evidence of some hypotension and is concerned for sepsis. He received fluid resuscitation and then needed diuresis because of his underlying cardiac and pulmonary disease. He's been treated with several antibiotics. Patient likely has pneumonia as a source of his sepsis. He was improving already in the last 24 hours. He is now transitioned to oral antibiotic therapy to complete the treatment of his pneumonia. Other than the complaints of chronic back pain there is no acute changes today. Objective - Vital Signs Vital signs: Vital Signs Temp 100.0 F H 02/13/17 16:00 Pulse 93 02/13/17 16:00 Resp 18 02/13/17 16:00 BP 118/68 02/13/17 16:00 Pulse Ox 94 L 02/13/17 16:00 Intake & Output 02/12/17 02/13/17 02/13/17 18:59 06:59 18:59 Intake Total 710 880 180 Output Total 2350 3050 400 Balance -1640 -2170 -220 Weight 77.5 kg Intake: IV 160 160 Sodium Chloride 0.9% 1, 160 160 000 ml @ 20 mls/hr IV . Q24H [facility] Rx#:[id number] Intake, IV Titration 40 Amount Diltiazem 125 mg In 40 Sodium Chloride 0.9% 100 ml @ 5 MG/HR 5 mls/hr IV .Q24H [facility] Rx#:[id number] Oral 510 720 180 Output: Urine 2350 3050 400 Other: Voiding Method Indwelling Catheter Toilet Toilet # Voids 1 - Exam 89-year-old male who is comfortable. Apparently early in the day had difficulty with orientation. Currently knows that he is a [facility] in the new name is Nguyen. HEENT: Anicteric conjunctiva are pink and moist nasal mucosa grossly intact without significant lesions, there is no thrush. Dentures in place Neck: The neck is supple without significant lymphadenopathy or thyromegaly. Lungs: There is symmetrical air entry. There are crackles and alter breath sounds in the lung zones but has a crunching characteristic no dullness or egophony is noted Heart: Regular rate and rhythm with an audible S1-S2, no S3 positive S4 There is no significant murmur click or rub, PMI was nondisplaced. Abdomen: Positive bowel sounds soft and nontender without palpable masses or organomegaly. There was no guarding or rebound. Extremities: The upper extremities have excellent pulses they are symmetric, no significant petechiae or telangiectasia. No splinter hemorrhages were noted. Trace pedal edema is noted but no lesions are seen Neuro: Awake alert oriented to person place which is improved from earlier today. Was able to follow some simple commands without difficulties. - Labs CBC & Chem 7: 02/13/17 07:06 02/13/17 15:09 Labs: Abnormal Lab Results - Last 24 Hours (Table) 02/12/17 02/13/17 02/13/17 Range/Units 20:53 06:22 07:06 RBC (4.30-5.90) m/uL Hgb (13.0-17.5) gm/dL Hct (39.0-53.0) % Lymphocytes # (1.0-4.8) k/uL Potassium (3.5-5.1) mmol/L BUN 24 H (9-20) mg/dL Glucose 190 H (74-99) mg/dL POC Glucose (mg/dL) 159 H 199 H (75-99) mg/dL Calcium 8.3 L (8.4-10.2) mg/dL 02/13/17 02/13/17 02/13/17 Range/Units 07:06 11:54 12:15 RBC 3.23 L (4.30-5.90) m/uL Hgb 9.8 L (13.0-17.5) gm/dL Hct 31.1 L (39.0-53.0) % Lymphocytes # 0.9 L (1.0-4.8) k/uL Potassium 3.3 L (3.5-5.1) mmol/L BUN (9-20) mg/dL Glucose (74-99) mg/dL POC Glucose (mg/dL) 216 H (75-99) mg/dL Calcium (8.4-10.2) mg/dL 02/13/17 02/13/17 Range/Units 15:09 17:16 RBC (4.30-5.90) m/uL Hgb (13.0-17.5) gm/dL Hct (39.0-53.0) % Lymphocytes # (1.0-4.8) k/uL Potassium 3.4 L (3.5-5.1) mmol/L BUN (9-20) mg/dL Glucose (74-99) mg/dL POC Glucose (mg/dL) 148 H (75-99) mg/dL Calcium (8.4-10.2) mg/dL Laboratory Results WBC 9.4 k/uL (3.8-10.6) 02/13/17 07:06 RBC 3.23 m/uL (4.30-5.90) L 02/13/17 07:06 Hgb 9.8 gm/dL (13.0-17.5) L 02/13/17 07:06 Hct 31.1 % (39.0-53.0) L 02/13/17 07:06 MCV 96.1 fL (80.0-100.0) 02/13/17 07:06 MCH 30.2 pg (25.0-35.0) 02/13/17 07:06 MCHC 31.4 g/dL (31.0-37.0) 02/13/17 07:06 RDW 13.3 % (11.5-15.5) 02/13/17 07:06 Plt Count 247 k/uL (150-450) 02/13/17 07:06 Neutrophils % 81 % 02/13/17 07:06 Neutrophils % (Manual) 82.0 % 02/09/17 05:06 Band Neutrophils % 3.0 % 02/09/17 05:06 Lymphocytes % 9 % 02/13/17 07:06 Lymphocytes % (Manual) 8.0 % 02/09/17 05:06 Monocytes % 7 % 02/13/17 07:06 Monocytes % (Manual) 7.0 % 02/09/17 05:06 Eosinophils % 1 % 02/13/17 07:06 Basophils % 0 % 02/13/17 07:06 Neutrophils # 7.7 k/uL (1.3-7.7) 02/13/17 07:06 Neutrophils # (Manual) 9.1 k/uL (1.3-7.7) H 02/09/17 05:06 Lymphocytes # 0.9 k/uL (1.0-4.8) L 02/13/17 07:06 Lymphocytes # (Manual) 0.9 k/uL (1.0-4.8) L 02/09/17 05:06 Monocytes # 0.6 k/uL (0-1.0) 02/13/17 07:06 Monocytes # (Manual) 0.7 k/uL (0-1.0) 02/09/17 05:06 Eosinophils # 0.1 k/uL (0-0.7) 02/13/17 07:06 Basophils # 0.0 k/uL (0-0.2) 02/13/17 07:06 Nucleated RBCs 0 /100 WBC (0-0) 02/09/17 05:06 Manual Slide Review Performed 02/09/17 05:06 Hypochromasia Slight 02/12/17 05:25 PT 11.0 sec (9.0-12.0) 02/09/17 05:06 INR 1.1 (<1.1) 02/09/17 05:06 APTT 25.2 sec (22.0-30.0) 02/09/17 05:06 Sample Site R Radial 02/11/17 10:15 ABG pH 7.43 (7.35-7.45) 02/11/17 10:15 ABG pCO2 35 mmHg (35-45) 02/11/17 10:15 ABG pO2 73 mmHg (83-108) L 02/11/17 10:15 ABG HCO3 23 mmol/L (21-25) 02/11/17 10:15 ABG Total CO2 24 mmol/L (19-24) 02/11/17 10:15 ABG O2 Saturation 95.0 % (94-97) 02/11/17 10:15 ABG Base Excess -1.1 mmol/L 02/11/17 10:15 FiO2 40 % 02/11/17 10:15 Sodium 139 mmol/L (137-145) 02/13/17 07:06 Potassium 3.4 mmol/L (3.5-5.1) L 02/13/17 15:09 Chloride 100 mmol/L (98-107) 02/13/17 07:06 Carbon Dioxide 27 mmol/L (22-30) 02/13/17 07:06 Anion Gap 12 mmol/L 02/13/17 07:06 BUN 24 mg/dL (9-20) H 02/13/17 07:06 Creatinine 1.24 mg/dL (0.66-1.25) 02/13/17 07:06 Est GFR (MDRD) Af Amer >60 (>60 ml/min/1.73 sqM) 02/13/17 07:06 Est GFR (MDRD) Non-Af 55 (>60 ml/min/1.73 sqM) 02/13/17 07:06 Glucose 190 mg/dL (74-99) H 02/13/17 07:06 POC Glucose (mg/dL) 148 mg/dL (75-99) H 02/13/17 17:16 POC Glu Industrial Seam[employer] ID Faby Mckeon 02/13/17 17:[address] Glu mg/dL 157 mg/dL 02/09/17 05:06 Hemoglobin A1c 7.1 % (4.2-6.1) H 02/09/17 05:06 Plasma Lactic Acid Renzo 1.4 mmol/L (0.7-2.0) 02/10/17 23:34 Calcium 8.3 mg/dL (8.4-10.2) L 02/13/17 07:06 Phosphorus 3.3 mg/dL (2.5-4.5) 02/13/17 07:06 Magnesium 1.6 mg/dL (1.6-2.3) 02/13/17 07:06 Total Bilirubin 0.7 mg/dL (0.2-1.3) 02/09/17 05:06 AST 43 U/L (17-59) 02/09/17 05:06 ALT 38 U/L (21-72) 02/09/17 05:06 Alkaline Phosphatase 46 U/L (38-126) 02/09/17 05:06 Troponin I 0.123 ng/mL (0.000-0.034) H* 02/09/17 14:28 NT-Pro-B Natriuret Pep 4500 pg/mL 02/09/17 05:06 Total Protein 6.1 g/dL (6.3-8.2) L 02/09/17 05:06 Albumin 3.3 g/dL (3.5-5.0) L 02/09/17 05:06 Urine Color Yellow 02/09/17 06:05 Urine Appearance Cloudy (Clear) 02/09/17 06:05 Urine pH 5.0 (5.0-8.0) 02/09/17 06:05 Ur Specific [place] 1.012 (1.001-1.035) 02/09/17 06:05 Urine Protein 1+ (Negative) H 02/09/17 06:05 Urine Glucose (UA) Negative (Negative) 02/09/17 06:05 Urine Ketones Negative (Negative) 02/09/17 06:05 Urine Blood Moderate (Negative) H 02/09/17 06:05 Urine Nitrite Negative (Negative) 02/09/17 06:05 Urine Bilirubin Negative (Negative) 02/09/17 06:05 Urine Urobilinogen <2.0 mg/dL (<2.0) 02/09/17 06:05 Ur Leukocyte Esterase Negative (Negative) 02/09/17 06:05 Urine RBC 2 /hpf (0-5) 02/09/17 06:05 Ur Squamous Epith Cells 1 /hpf (0-4) 02/09/17 06:05 Amorphous Sediment Rare /hpf (None) H 02/09/17 06:05 Granular Casts 157 /lpf (0) 02/09/17 06:05 Urine Mucus Rare /hpf (None) H 02/09/17 06:05 Vancomycin Trough 11.2 ug/mL 02/12/17 05:25 Microbiology 02/09/17 05:06 Blood Blood Culture - Preliminary No Growth after 96 hours 02/09/17 06:05 Urine,Voided Urine Culture - Final Assessment and Plan (1) Pneumonia Narrative/Plan: 89-year-old male who is extensive medical troubles that include diabetes heart disease as well as asbestosis presents to Hospital with significant weakness and fall. Patient been treated with significant medications that included a burst of prednisone as well as gabapentin and Flexeril. He then had a marked alteration of his mental status with falls. Presented hospital and was resuscitated. Now doing considerably better and appears to be even better this evening and he was earlier in the day. His lactic acidosis and acute renal failure have all improved. And overall is having improvement further today. Concerned underlying pneumonia given his significant underlying lung disease is receiving alterable antibiotics at this point in time with his penicillin ALLERGY. There does seem to be a significant improvement and would continue current antibiotics while cultures are in process. Likely transition to single agent levofloxacin and the next day if he continues to have improvement. His anemia has worsened over time. It is not likely that his recent diagnosis of prostate cancer is directly influence the issue however is unclear if that is relating to his back pain and await any further information about the workup that's been done regarding that. Current urine and blood cultures are negative it is unlikely his urinary infection since we do have 2 recent urine cultures are both negative. No evidence of bacteremia at this time. Likely pneumonia and is being treated with levofloxacin with ongoing improvement. Chronic back pain as noted per the family. We'll follow up with urology after discharge Continue ongoing supportive care. This information was related to the and daughter were present at the visit. Status: Acute (2) Asbestosis Status: Acute (3) Medication-induced delirium, acute, hypoactive Status: Acute
[2017-02-13] MEDS: Acetaminophen-Codeine 300-30mg TAB PO PRN (19:22)
[2017-02-13 20:45] LABS: Glucose,Whole Blood 245 mg/dL (75-99)
[2017-02-13] MEDS: ATORVASTATIN 20 MG TAB PO SCH (20:55)
[2017-02-13] MEDS: OXYBUTYNIN CHLORIDE 5 MG TAB PO SCH (20:55)
[2017-02-13] MEDS: MELATONIN 5 MG TABLET PO SCH (20:55)
[2017-02-13] MEDS: METOPROLOL TARTRATE 50 MG TAB PO SCH (20:55)
[2017-02-13] MEDS ORDERED: POTASSIUM CHLORIDE ER 20 MEQ TAB.ER PO SCH (23:00)
[2017-02-14] MEDS ORDERED: VANCOMYCIN 1,750 MG in SODIUM CHLORIDE 0.9% 250 ML IVPB SCH (06:00)
[2017-02-14 06:35] LABS: Glucose,Whole Blood 163 mg/dL (75-99)
[2017-02-14 06:37] LABS: Basophils % (A) 0 %; CHCM 30.9; Eosinophils # (A) 0.2 k/uL (0-0.7); Eosinophils % (A) 2 %; HCT 32.9 % (39.0-53.0); HDW 2.41; HGB 10.2 gm/dL (13.0-17.5); Hypochromasia Slight; Luc # (Auto) 0.22; Luc % (Auto) 2; Lymphocytes # (A) 1.1 k/uL (1.0-4.8); Lymphocytes % (A) 12 %; MCHC 30.9 g/dL (31.0-37.0); MCV 97.3 fL (80.0-100.0); Mean Platelet Volume 8.5; Monocytes # (A) 0.4 k/uL (0-1.0); Monocytes % (A) 5 %; Neutrophils # (A) 7.7 k/uL (1.3-7.7); Neutrophils % (A) 79 %; RBC 3.38 m/uL (4.30-5.90); RDW 13.2 % (11.5-15.5); WBC 9.7 k/uL (3.8-10.6); WBC (Perox) 10.06
[2017-02-14] MEDS: INSULIN LISPRO (humaLOG) 300 UNIT/3 ML VIAL SQ SCH ×4 (06:44→21:06)
[2017-02-14 07:02] LABS: Calcium 8.4 mg/dL (8.4-10.2); Phosphorous 3.6 mg/dL (2.5-4.5); Potassium 4.3 mmol/L (3.5-5.1)
[2017-02-14] MEDS: SODIUM CHLORIDE 0.9% 1,000 ML IV SCH (08:33)
[2017-02-14] MEDS: HEPARIN SODIUM,PORCINE 5,000 UNIT/ML 1 ML VIAL SQ SCH ×2 (08:34→21:05)
[2017-02-14] MEDS: METOPROLOL TARTRATE 50 MG TAB PO SCH ×3 (08:35→21:08)
[2017-02-14] MEDS: AMIODARONE 200 MG TAB PO SCH ×2 (08:35→21:03)
[2017-02-14] MEDS: ASPIRIN 81 MG CHEW PO SCH (08:35)
[2017-02-14] MEDS: FAMOTIDINE 20 MG TAB PO SCH (08:35)
[2017-02-14] MEDS: FUROSEMIDE 10 MG/ML 4 ML VIAL IV SCH ×2 (08:35→21:03)
[2017-02-14] MEDS: VALSARTAN 80 MG TAB PO SCH (08:35)
[2017-02-14] MEDS: IPRATROPIUM-ALBUTEROL 3 ML NEB INHALATION SCH ×4 (10:00→19:16)
--- NOTE | 2017-02-14 10:50 | P.PN ---
Subjective Principal diagnosis: Acute sepsis This is an 89-year-old white male with multiple medical problems including diabetes, degenerative joint disease, hypertension, coronary artery disease and previous stent placement, patient was seen by his primary care physician a few days ago with complaints of weakness and generalized aches and pains. Patient was placed on a course of prednisone burst and taper, he was also placed on gabapentin, and Flexeril. Over the last 2 days and over the weekend, patient has been getting weaker and weaker. To the point that he is unable to walk. Apparently the patient was unable to even hold steady on a chair, he fell off the chair at one point. And according to the early this morning he fell off the bed, and she could not put him back to bed. Hence EMS was notified, and patient was brought into the ER. Workup in the ER included CBC which was relatively normal. Basic metabolic profile was normal except for elevated BUN of 44 and creatinine of 1.63. Lactic acid was 4.6. And troponin was elevated, proBNP level was elevated patient was given fluid boluses, he went on to develop some mild component of failure, although her chest x-ray is mostly consistent with asbestos associated lung disease. Considering the presentation and his multiple constitutional symptoms, considering his elevated lactic acid, patient was felt to be possibly septic, admitted to the ICU and I was asked to see him on consultation. Placed empirically on antibiotics, given fluid boluses , did not require norepinephrine, after arrival to the ICU I had to diurese the patient since he was developing some component of pulmonary edema. Cultures are pending at the time of dictation including blood cultures and urine cultures. Patient was placed empirically on vancomycin and Levaquin. And on aztreonam. I went ahead and discontinued his gabapentin and Flexeril, this is based on the fact that the patient's constitutional symptoms have become much worse and weakness was noted to be much worse after he was started on gabapentin and Flexeril. Patient was reevaluated today on 02/10/2017, seems to be doing a bit better, he is hemodynamically stable, less shortness of breath and maintained on Lasix for his fluid overload. Did not require any norepinephrine. Cultures of the urine and blood remain negative. CBC is relatively normal except for hemoglobin of 9.2. BUN and creatinine are improving, BUN is 31 creatinine is 1.40 today. Electrolytes are relatively unremarkable. His creatinine on admission was 1.63. Chest x-ray is showing evidence of bilateral pleural effusions, and asbestos associated lung disease. Hence patient will be placed on a maintenance dose of Lasix. Echocardiogram is relatively unremarkable good LV function was noted. patient was reevaluated today on 02/11/2017, apparently overnight the patient has been restless and agitated, and he was given Haldol and Ativan, patient seems to be quite weak on examination today, opens eyes, noted to be a bit tachypneic, but his ABG is relatively unremarkable, is not reflecting a significant hypoxemia and is not reflectng hypercapnia. ABG on 40% showed a pO2 of 73 pCO2 of 35 pH of 7.43. hence I recommended BiPAP, his last x-ray showed mostly findings of asbestos associated lung disease and possibly some component of congestive heart failure. basic metabolic profile is normal. renal profile is relatively normal. blood sugar is 176. On 02/12/2017, patient seems to be doing much better compared to yesterday. He seems to be more awake today, and more appropriate. Chest x-ray however is showing worsening interstitial edema, with underlying asbestos associated lung disease. Possibility of underlying infiltrates is not entirely ruled out, patient could have had an episode of aspiration but again this is felt to be less likely. I feel the findings are mostly findings of interstitial edema. Patient has no white count, and he has no fever. Hence I will go ahead and recommend aggressive diuresis and cut down his IV fluid to KVO. Patient has been on antibiotics all along. Lasix was added today 40 mg IV push every 12 hours. And a follow-up chest x-ray will be reviewed in a.m. Again the findings on the chest x-ray are not findings of pneumonia they are more findings of congestive heart failure. On 02/13/2017, patient continues to do well, obviously he is responding to the combination of diuretics and antibiotics which were given empirically because of his presentation. Patient presented with hypotension requiring fluid boluses and profound weakness. Chest x-ray continues to show significant asbestos associated lung disease, possibility of underlying failure or underlying pneumonia is not entirely ruled out considering his abnormal chest x- ray to begin with. Patient is being treated basically for both. Clinically he is improving. Labs were reviewed WBC count is 9.4 hemoglobin is 9.8 electrolytes are normal BUN is 24 creatinine is 1.24. On 02/14/2017, patient is feeling generally weak, otherwise no specific complaints and no specific symptoms. Labs from today were reviewed, relatively normal CBC and normal basic metabolic profile noted. Creatinine is 1.40. All his medications were reviewed and they seem to be unchanged. Lasix remains at 40 mg every 12 hours. Objective - Vital Signs Vital signs: Vital Signs Temp 97 F L 02/14/17 08:40 Pulse 128 H 02/14/17 08:40 Resp 18 02/14/17 08:40 BP 115/54 02/14/17 08:40 Pulse Ox 92 L 02/14/17 08:40 Intake & Output 02/13/17 02/14/17 02/14/17 18:59 06:59 18:59 Intake Total 410 100 222 Output Total 1200 Balance -790 100 222 Intake: IV 100 Sodium Chloride 0.9% 1, 100 000 ml @ 20 mls/hr IV . Q24H [facility] Rx#:[id number] Oral 410 222 Output: Urine 1200 Other: Voiding Method Toilet Toilet Toilet # Voids 1 1 - Exam General: patient is awake, in no form of respiratory distress, seems to be more appropriate today. HEENT: [PERRL. EOMI. No pharyngeal erythema or exudate.] Neck: [No adenopathy.] Cardiac: [Heart regular in rate and rhythm. No S3. No S4. No clicks, rubs. No murmur.] Lungs: Crackles at the bases bilaterally. Abdomen: [No mass. No organomegaly. Bowel sounds presnt and normoactive in all 4 quadrants.] Extremes: [No edema no cyanosis no claudication normal pulses. Weakness bilateral lower extremes Musculoskeletal: [No joint erythema, edema or tenderness.] Skin: [No rash.] Neurologic: [No lateralizing deficits. CN II - XII grossly intact.] Lymphatic: [No adenopathy.] - Labs CBC & Chem 7: 02/14/17 06:05 02/14/17 06:05 Labs: Abnormal Lab Results - Last 24 Hours (Table) 02/13/17 02/13/17 02/13/17 Range/Units 11:54 12:15 15:09 RBC (4.30-5.90) m/uL Hgb (13.0-17.5) gm/dL Hct (39.0-53.0) % MCHC (31.0-37.0) g/dL Potassium 3.3 L 3.4 L (3.5-5.1) mmol/L BUN (9-20) mg/dL Creatinine (0.66-1.25) mg/dL Glucose (74-99) mg/dL POC Glucose (mg/dL) 216 H (75-99) mg/dL 02/13/17 02/13/17 02/14/17 Range/Units 17:16 20:18 06:05 RBC (4.30-5.90) m/uL Hgb (13.0-17.5) gm/dL Hct (39.0-53.0) % MCHC (31.0-37.0) g/dL Potassium (3.5-5.1) mmol/L BUN 27 H (9-20) mg/dL Creatinine 1.40 H (0.66-1.25) mg/dL Glucose 142 H (74-99) mg/dL POC Glucose (mg/dL) 148 H 245 H (75-99) mg/dL 02/14/17 02/14/17 Range/Units 06:05 06:19 RBC 3.38 L (4.30-5.90) m/uL Hgb 10.2 L (13.0-17.5) gm/dL Hct 32.9 L (39.0-53.0) % MCHC 30.9 L (31.0-37.0) g/dL Potassium (3.5-5.1) mmol/L BUN (9-20) mg/dL Creatinine (0.66-1.25) mg/dL Glucose (74-99) mg/dL POC Glucose (mg/dL) 163 H (75-99) mg/dL Assessment and Plan Plan: Impression: 1 acute presentation of multiple constitutional symptoms mostly symptoms of profound weakness, exact etiology is not clear, however the possibility of sepsis would have to be considered especially with elevated lactic acid, however lactic acid normalized with fluid boluses only. No specific source of infection could be identified, although the presentation was felt to be a presentation of sepsis. I reviewed the chest x-ray, the findings on the chest x -ray are mostly findings of congestive heart failure rather than pneumonia. However pneumonia is not entirely ruled out, remains on antibiotics in the form of Levaquin And the patient will need to be aggressively diuresed. Follow-up chest x-ray on outpatient basis postdischarge. 2 asbestos associated lung disease, and suspect some underlying component of congestive heart failure/diastolic dysfunction. 3 acute kidney injury, most likely secondary to hypotension upon presentation. Improving based on the labs on 02/11/2017. 4 possible non-ST elevation myocardial infarction with elevated troponin on presentation, echocardiogram was noted to be relatively unremarkable. Hence we may be dealing with diastolic dysfunction rather than systolic dysfunction. Recommendation: Continue present supportive care measures, continue diuretics. Consider discharge planning in the next 24-48 hours. Time with Patient: Less than 30
--- NOTE | 2017-02-14 11:52 | P.PN ---
Subjective Principal diagnosis: CHF This is a pleasant 89-year-old gentleman with a past medical history significant for chronic lung disease, diabetes, hypertension, dyslipidemia, and paroxysmal atrial fibrillation who was admitted to the hospital was acute on chronic respiratory failure secondary to congestive heart failure exacerbation as well as A. fib with RVR. I'll follow-up with him today, he stated that he is feeling slightly better. The shortness of breath is better. The heart rate continues to be slightly uncontrolled. I am going to increase the dose of metoprolol to 50 mg by mouth 3 times a day. I will switch him to Lasix by mouth. Objective - Vital Signs Vital signs: Vital Signs Temp 97 F L 02/14/17 08:40 Pulse 128 H 02/14/17 08:40 Resp 18 02/14/17 08:40 BP 115/54 02/14/17 08:40 Pulse Ox 92 L 02/14/17 08:40 Intake & Output 02/13/17 02/14/17 02/14/17 18:59 06:59 18:59 Intake Total 410 100 222 Output Total 1200 Balance -790 100 222 Intake: IV 100 Sodium Chloride 0.9% 1, 100 000 ml @ 20 mls/hr IV . Q24H [facility] Rx#:[id number] Oral 410 222 Output: Urine 1200 Other: Voiding Method Toilet Toilet Toilet # Voids 1 1 - Constitutional General appearance: Present: no acute distress - Respiratory Respiratory: bilateral: CTA - Cardiovascular Heart sounds: normal: S1, S2 - Labs CBC & Chem 7: 02/14/17 06:05 02/14/17 06:05 Labs: Abnormal Lab Results - Last 24 Hours (Table) 02/13/17 02/13/17 02/13/17 Range/Units 11:54 12:15 15:09 RBC (4.30-5.90) m/uL Hgb (13.0-17.5) gm/dL Hct (39.0-53.0) % MCHC (31.0-37.0) g/dL Potassium 3.3 L 3.4 L (3.5-5.1) mmol/L BUN (9-20) mg/dL Creatinine (0.66-1.25) mg/dL Glucose (74-99) mg/dL POC Glucose (mg/dL) 216 H (75-99) mg/dL 02/13/17 02/13/17 02/14/17 Range/Units 17:16 20:18 06:05 RBC (4.30-5.90) m/uL Hgb (13.0-17.5) gm/dL Hct (39.0-53.0) % MCHC (31.0-37.0) g/dL Potassium (3.5-5.1) mmol/L BUN 27 H (9-20) mg/dL Creatinine 1.40 H (0.66-1.25) mg/dL Glucose 142 H (74-99) mg/dL POC Glucose (mg/dL) 148 H 245 H (75-99) mg/dL 02/14/17 02/14/17 Range/Units 06:05 06:19 RBC 3.38 L (4.30-5.90) m/uL Hgb 10.2 L (13.0-17.5) gm/dL Hct 32.9 L (39.0-53.0) % MCHC 30.9 L (31.0-37.0) g/dL Potassium (3.5-5.1) mmol/L BUN (9-20) mg/dL Creatinine (0.66-1.25) mg/dL Glucose (74-99) mg/dL POC Glucose (mg/dL) 163 H (75-99) mg/dL Assessment and Plan Plan: Assessment Acute on chronic respiratory failure A. fib with uncontrolled heart rate Congestive heart failure secondary to diastolic dysfunction Multiple comorbidities Plan Increase the dose of metoprolol Switch the patient to Lasix by mouth Continue monitoring the kidney function and electrolytes Follow-up with the patient
[2017-02-14 12:09] LABS: Glucose,Whole Blood 202 mg/dL (75-99)
--- NOTE | 2017-02-14 14:22 | P.PN ---
Subjective Principal diagnosis: Pneumonia, sepsis and lactic acidosis which has resolved Symptoms currently improved, getting IV antibiotics being treated for pneumonia ,sepsis ,lactic acidosis Objective - Vital Signs Vital signs: Vital Signs Temp 98.5 F 02/14/17 11:53 Pulse 92 02/14/17 11:53 Resp 20 02/14/17 11:53 BP 126/58 02/14/17 11:53 Pulse Ox 94 L 02/14/17 11:53 Intake & Output 02/13/17 02/14/17 02/14/17 18:59 06:59 18:59 Intake Total 410 100 222 Output Total 1200 Balance -790 100 222 Intake: IV 100 Sodium Chloride 0.9% 1, 100 000 ml @ 20 mls/hr IV . Q24H [facility] Rx#:[id number] Oral 410 222 Output: Urine 1200 Other: Voiding Method Toilet Toilet Toilet # Voids 1 1 - Exam General: [Patient awake, alert and oriented times 3. Patient in no acute distress.] HEENT: [PERRL. EOMI. No pharyngeal erythema or exudate.] Neck: [No adenopathy.] Cardiac: [Heart regular in rate and rhythm. No S3. No S4. No clicks, rubs. No murmur.] Lungs: [Clear to auscultation bilaterally.] Significantly improved breath sounds bilaterally with mild crackles bilaterally Abdomen: [No mass. No organomegaly. Bowel sounds presnt and normoactive in all 4 quadrants.] Extremes: [No edema no cyanosis no claudication normal pulses] : [] Musculoskeletal: Patient still complaining complaining of back pain however symptoms have significantly improved Skin: [No rash.] Neurologic: [No lateralizing deficits. CN II - XII grossly intact.] Lymphatic: [No adenopathy.] - Labs CBC & Chem 7: 02/14/17 06:05 02/14/17 06:05 Labs: Abnormal Lab Results - Last 24 Hours (Table) 02/13/17 02/13/17 02/13/17 Range/Units 15:09 17:16 20:18 RBC (4.30-5.90) m/uL Hgb (13.0-17.5) gm/dL Hct (39.0-53.0) % MCHC (31.0-37.0) g/dL Potassium 3.4 L (3.5-5.1) mmol/L BUN (9-20) mg/dL Creatinine (0.66-1.25) mg/dL Glucose (74-99) mg/dL POC Glucose (mg/dL) 148 H 245 H (75-99) mg/dL 02/14/17 02/14/17 02/14/17 Range/Units 06:05 06:05 06:19 RBC 3.38 L (4.30-5.90) m/uL Hgb 10.2 L (13.0-17.5) gm/dL Hct 32.9 L (39.0-53.0) % MCHC 30.9 L (31.0-37.0) g/dL Potassium (3.5-5.1) mmol/L BUN 27 H (9-20) mg/dL Creatinine 1.40 H (0.66-1.25) mg/dL Glucose 142 H (74-99) mg/dL POC Glucose (mg/dL) 163 H (75-99) mg/dL 02/14/17 Range/Units 11:45 RBC (4.30-5.90) m/uL Hgb (13.0-17.5) gm/dL Hct (39.0-53.0) % MCHC (31.0-37.0) g/dL Potassium (3.5-5.1) mmol/L BUN (9-20) mg/dL Creatinine (0.66-1.25) mg/dL Glucose (74-99) mg/dL POC Glucose (mg/dL) 202 H (75-99) mg/dL Assessment and Plan (1) Elevated brain natriuretic peptide (BNP) level Narrative/Plan: Improved, echocardiogram was performed and found to be within normal limits Status: Acute (2) CHF (congestive heart failure), NYHA class III Narrative/Plan: Elevated BNP/elevated troponin echo normal ,with normal left ventricular function Status: Acute
[2017-02-14] MEDS: LEVOFLOXACIN 750 MG TAB PO SCH (15:10)
[2017-02-14 16:59] LABS: Glucose,Whole Blood 166 mg/dL (75-99)
[2017-02-14] MEDS ORDERED: BISACODYL 5 MG TABLET.DR PO PRN (17:44)
[2017-02-14] MEDS: ATORVASTATIN 20 MG TAB PO SCH (21:03)
[2017-02-14 21:08] LABS: Glucose,Whole Blood 182 mg/dL (75-99)
[2017-02-14] MEDS: OXYBUTYNIN CHLORIDE 5 MG TAB PO SCH (21:08)
[2017-02-14] MEDS: MELATONIN 5 MG TABLET PO SCH (21:08)
--- NOTE | 2017-02-14 23:01 | P.PN ---
Subjective Principal diagnosis: Fatigue shortness of breath 89-year-old male who is a known history of asbestosis was sitting lung disease as well as diabetes, general joint disease and heart disease is having difficulty for the last several weeks. The patient has been to the emergency center several times because of weakness and difficulty with his breathing. January 31 he came to the ER there was a concern to possible urinary infection urinalysis and culture were negative. Computed tomography scan was performed without evidence of acute changes. The patient recently has been following with Dr. Coffey was diagnosed him with prostate cancer. The staging and extent is unclear sensitives are somewhat new diagnosis. He is yet to be treated with any particular chemotherapy agents or hormones yet. After the recent ER visit he was seen by his primary care physician. His back pain was worsening. He constantly was treated with steroids as well as a muscle relaxant. It appears in the days after that he's had a marked change of status. He became weaker unable to navigate and had a fall. Consequently he was brought to Hospital for further intervention. At arrival there is evidence of some hypotension and is concerned for sepsis. He received fluid resuscitation and then needed diuresis because of his underlying cardiac and pulmonary disease. He's been treated with several antibiotics. Patient likely has pneumonia as a source of his sepsis. He was improving already in the last 24 hours. He is now transitioned to oral antibiotic therapy to complete the treatment of his pneumonia. Other than the complaints of chronic back pain there is no acute changes today. Objective - Vital Signs Vital signs: Vital Signs Temp 99.0 F 02/14/17 20:00 Pulse 98 02/14/17 20:00 Resp 18 02/14/17 20:00 BP 106/66 02/14/17 20:00 Pulse Ox 93 L 02/14/17 20:00 Intake & Output 02/14/17 02/14/17 02/15/17 06:59 18:59 06:59 Intake Total 100 562 Output Total 250 Balance 100 312 Intake: IV 100 Sodium Chloride 0.9% 1, 100 000 ml @ 20 mls/hr IV . Q24H [facility] Rx#:[id number] Oral 562 Output: Urine 250 Other: Voiding Method Toilet Toilet Urinal # Voids 1 - Exam 89-year-old male who is comfortable. Apparently early in the day had difficulty with orientation. Currently knows that he is a [facility] in the new name is Nguyen. HEENT: Anicteric conjunctiva are pink and moist nasal mucosa grossly intact without significant lesions, there is no thrush. Dentures in place Neck: The neck is supple without significant lymphadenopathy or thyromegaly. Lungs: There is symmetrical air entry. There are crackles and alter breath sounds in the lung zones but has a crunching characteristic no dullness or egophony is noted Heart: Regular rate and rhythm with an audible S1-S2, no S3 positive S4 There is no significant murmur click or rub, PMI was nondisplaced. Abdomen: Positive bowel sounds soft and nontender without palpable masses or organomegaly. There was no guarding or rebound. Extremities: The upper extremities have excellent pulses they are symmetric, no significant petechiae or telangiectasia. No splinter hemorrhages were noted. Trace pedal edema is noted but no lesions are seen Neuro: Awake alert oriented to person place which is improved from earlier today. Was able to follow some simple commands without difficulties. - Labs CBC & Chem 7: 02/14/17 06:05 02/14/17 06:05 Labs: Abnormal Lab Results - Last 24 Hours (Table) 02/14/17 02/14/17 02/14/17 Range/Units 06:05 06:05 06:19 RBC 3.38 L (4.30-5.90) m/uL Hgb 10.2 L (13.0-17.5) gm/dL Hct 32.9 L (39.0-53.0) % MCHC 30.9 L (31.0-37.0) g/dL BUN 27 H (9-20) mg/dL Creatinine 1.40 H (0.66-1.25) mg/dL Glucose 142 H (74-99) mg/dL POC Glucose (mg/dL) 163 H (75-99) mg/dL 02/14/17 02/14/17 02/14/17 Range/Units 11:45 16:37 21:02 RBC (4.30-5.90) m/uL Hgb (13.0-17.5) gm/dL Hct (39.0-53.0) % MCHC (31.0-37.0) g/dL BUN (9-20) mg/dL Creatinine (0.66-1.25) mg/dL Glucose (74-99) mg/dL POC Glucose (mg/dL) 202 H 166 H 182 H (75-99) mg/dL Laboratory Results WBC 9.7 k/uL (3.8-10.6) 02/14/17 06:05 RBC 3.38 m/uL (4.30-5.90) L 02/14/17 06:05 Hgb 10.2 gm/dL (13.0-17.5) L 02/14/17 06:05 Hct 32.9 % (39.0-53.0) L 02/14/17 06:05 MCV 97.3 fL (80.0-100.0) 02/14/17 06:05 MCH 30.0 pg (25.0-35.0) 02/14/17 06:05 MCHC 30.9 g/dL (31.0-37.0) L 02/14/17 06:05 RDW 13.2 % (11.5-15.5) 02/14/17 06:05 Plt Count 311 k/uL (150-450) 02/14/17 06:05 Neutrophils % 79 % 02/14/17 06:05 Neutrophils % (Manual) 82.0 % 02/09/17 05:06 Band Neutrophils % 3.0 % 02/09/17 05:06 Lymphocytes % 12 % 02/14/17 06:05 Lymphocytes % (Manual) 8.0 % 02/09/17 05:06 Monocytes % 5 % 02/14/17 06:05 Monocytes % (Manual) 7.0 % 02/09/17 05:06 Eosinophils % 2 % 02/14/17 06:05 Basophils % 0 % 02/14/17 06:05 Neutrophils # 7.7 k/uL (1.3-7.7) 02/14/17 06:05 Neutrophils # (Manual) 9.1 k/uL (1.3-7.7) H 02/09/17 05:06 Lymphocytes # 1.1 k/uL (1.0-4.8) 02/14/17 06:05 Lymphocytes # (Manual) 0.9 k/uL (1.0-4.8) L 02/09/17 05:06 Monocytes # 0.4 k/uL (0-1.0) 02/14/17 06:05 Monocytes # (Manual) 0.7 k/uL (0-1.0) 02/09/17 05:06 Eosinophils # 0.2 k/uL (0-0.7) 02/14/17 06:05 Basophils # 0.0 k/uL (0-0.2) 02/14/17 06:05 Nucleated RBCs 0 /100 WBC (0-0) 02/09/17 05:06 Manual Slide Review Performed 02/09/17 05:06 Hypochromasia Slight 02/14/17 06:05 PT 11.0 sec (9.0-12.0) 02/09/17 05:06 INR 1.1 (<1.1) 02/09/17 05:06 APTT 25.2 sec (22.0-30.0) 02/09/17 05:06 Sample Site R Radial 02/11/17 10:15 ABG pH 7.43 (7.35-7.45) 02/11/17 10:15 ABG pCO2 35 mmHg (35-45) 02/11/17 10:15 ABG pO2 73 mmHg (83-108) L 02/11/17 10:15 ABG HCO3 23 mmol/L (21-25) 02/11/17 10:15 ABG Total CO2 24 mmol/L (19-24) 02/11/17 10:15 ABG O2 Saturation 95.0 % (94-97) 02/11/17 10:15 ABG Base Excess -1.1 mmol/L 02/11/17 10:15 FiO2 40 % 02/11/17 10:15 Sodium 142 mmol/L (137-145) 02/14/17 06:05 Potassium 4.3 mmol/L (3.5-5.1) 02/14/17 06:05 Chloride 102 mmol/L (98-107) 02/14/17 06:05 Carbon Dioxide 30 mmol/L (22-30) 02/14/17 06:05 Anion Gap 10 mmol/L 02/14/17 06:05 BUN 27 mg/dL (9-20) H 02/14/17 06:05 Creatinine 1.40 mg/dL (0.66-1.25) H 02/14/17 06:05 Est GFR (MDRD) Af Amer 58 (>60 ml/min/1.73 sqM) 02/14/17 06:05 Est GFR (MDRD) Non-Af 48 (>60 ml/min/1.73 sqM) 02/14/17 06:05 Glucose 142 mg/dL (74-99) H 02/14/17 06:05 POC Glucose (mg/dL) 182 mg/dL (75-99) H 02/14/17 21:02 POC Glu Spanish Translator ID Boris Colon 02/14/17 21:[address] Glu mg/dL 157 mg/dL 02/09/17 05:06 Hemoglobin A1c 7.1 % (4.2-6.1) H 02/09/17 05:06 Plasma Lactic Acid Renzo 1.4 mmol/L (0.7-2.0) 02/10/17 23:34 Calcium 8.4 mg/dL (8.4-10.2) 02/14/17 06:05 Phosphorus 3.6 mg/dL (2.5-4.5) 02/14/17 06:05 Magnesium 2.0 mg/dL (1.6-2.3) 02/14/17 06:05 Total Bilirubin 0.7 mg/dL (0.2-1.3) 02/09/17 05:06 AST 43 U/L (17-59) 02/09/17 05:06 ALT 38 U/L (21-72) 02/09/17 05:06 Alkaline Phosphatase 46 U/L (38-126) 02/09/17 05:06 Troponin I 0.123 ng/mL (0.000-0.034) H* 02/09/17 14:28 NT-Pro-B Natriuret Pep 4500 pg/mL 02/09/17 05:06 Total Protein 6.1 g/dL (6.3-8.2) L 02/09/17 05:06 Albumin 3.3 g/dL (3.5-5.0) L 02/09/17 05:06 Urine Color Yellow 02/09/17 06:05 Urine Appearance Cloudy (Clear) 02/09/17 06:05 Urine pH 5.0 (5.0-8.0) 02/09/17 06:05 Ur Specific Melber 1.012 (1.001-1.035) 02/09/17 06:05 Urine Protein 1+ (Negative) H 02/09/17 06:05 Urine Glucose (UA) Negative (Negative) 02/09/17 06:05 Urine Ketones Negative (Negative) 02/09/17 06:05 Urine Blood Moderate (Negative) H 02/09/17 06:05 Urine Nitrite Negative (Negative) 02/09/17 06:05 Urine Bilirubin Negative (Negative) 02/09/17 06:05 Urine Urobilinogen <2.0 mg/dL (<2.0) 02/09/17 06:05 Ur Leukocyte Esterase Negative (Negative) 02/09/17 06:05 Urine RBC 2 /hpf (0-5) 02/09/17 06:05 Ur Squamous Epith Cells 1 /hpf (0-4) 02/09/17 06:05 Amorphous Sediment Rare /hpf (None) H 02/09/17 06:05 Granular Casts 157 /lpf (0) 02/09/17 06:05 Urine Mucus Rare /hpf (None) H 02/09/17 06:05 Vancomycin Trough 11.2 ug/mL 02/12/17 05:25 Microbiology 02/09/17 05:06 Blood Blood Culture - Preliminary No Growth after 120 hours 02/09/17 06:05 Urine,Voided Urine Culture - Final Assessment and Plan (1) Pneumonia Narrative/Plan: 89-year-old male who is extensive medical troubles that include diabetes heart disease as well as asbestosis presents to Hospital with significant weakness and fall. Patient been treated with significant medications that included a burst of prednisone as well as gabapentin and Flexeril. He then had a marked alteration of his mental status with falls. Presented hospital and was resuscitated. Now doing considerably better and appears to be even better this evening and he was earlier in the day. His lactic acidosis and acute renal failure have all improved. And overall is having improvement further today. Concerned underlying pneumonia given his significant underlying lung disease is receiving alterable antibiotics at this point in time with his penicillin ALLERGY. There does seem to be a significant improvement and would continue current antibiotics while cultures are in process. Likely transition to single agent levofloxacin and the next day if he continues to have improvement. His anemia has worsened over time. It is not likely that his recent diagnosis of prostate cancer is directly influence the issue however is unclear if that is relating to his back pain and await any further information about the workup that's been done regarding that. Current urine and blood cultures are negative it is unlikely his urinary infection since we do have 2 recent urine cultures are both negative. No evidence of bacteremia at this time. Likely pneumonia and is being treated with levofloxacin with ongoing improvement. Chronic back pain as noted per the family. Will follow up with urology after discharge Continue ongoing supportive care. Status: Acute (2) Asbestosis Status: Acute (3) Medication-induced delirium, acute, hypoactive Status: Acute
[2017-02-15 06:29] LABS: Glucose,Whole Blood 158 mg/dL (75-99)
[2017-02-15] MEDS: INSULIN LISPRO (humaLOG) 300 UNIT/3 ML VIAL SQ SCH ×4 (06:33→21:26)
[2017-02-15] MEDS: SODIUM CHLORIDE 0.9% 1,000 ML IV SCH (07:37)
[2017-02-15] MEDS: AMIODARONE 200 MG TAB PO SCH ×2 (07:50→21:22)
[2017-02-15] MEDS: ASPIRIN 81 MG CHEW PO SCH (07:51)
[2017-02-15] MEDS: HEPARIN SODIUM,PORCINE 5,000 UNIT/ML 1 ML VIAL SQ SCH ×2 (07:51→21:22)
[2017-02-15] MEDS: FAMOTIDINE 20 MG TAB PO SCH (07:51)
[2017-02-15] MEDS: METOPROLOL TARTRATE 50 MG TAB PO SCH ×3 (07:51→21:23)
[2017-02-15] MEDS: VALSARTAN 80 MG TAB PO SCH (07:51)
[2017-02-15] MEDS: FUROSEMIDE 10 MG/ML 4 ML VIAL IV SCH (07:51)
[2017-02-15] MEDS: IPRATROPIUM-ALBUTEROL 3 ML NEB INHALATION SCH ×4 (08:15→19:49)
--- NOTE | 2017-02-15 10:52 | P.PN ---
Subjective Principal diagnosis: Acute sepsis, and presentation of profound weakness This is an 89-year-old white male with multiple medical problems including diabetes, degenerative joint disease, hypertension, coronary artery disease and previous stent placement, patient was seen by his primary care physician a few days ago with complaints of weakness and generalized aches and pains. Patient was placed on a course of prednisone burst and taper, he was also placed on gabapentin, and Flexeril. Over the last 2 days and over the weekend, patient has been getting weaker and weaker. To the point that he is unable to walk. Apparently the patient was unable to even hold steady on a chair, he fell off the chair at one point. And according to the early this morning he fell off the bed, and she could not put him back to bed. Hence EMS was notified, and patient was brought into the ER. Workup in the ER included CBC which was relatively normal. Basic metabolic profile was normal except for elevated BUN of 44 and creatinine of 1.63. Lactic acid was 4.6. And troponin was elevated, proBNP level was elevated patient was given fluid boluses, he went on to develop some mild component of failure, although her chest x-ray is mostly consistent with asbestos associated lung disease. Considering the presentation and his multiple constitutional symptoms, considering his elevated lactic acid, patient was felt to be possibly septic, admitted to the ICU and I was asked to see him on consultation. Placed empirically on antibiotics, given fluid boluses , did not require norepinephrine, after arrival to the ICU I had to diurese the patient since he was developing some component of pulmonary edema. Cultures are pending at the time of dictation including blood cultures and urine cultures. Patient was placed empirically on vancomycin and Levaquin. And on aztreonam. I went ahead and discontinued his gabapentin and Flexeril, this is based on the fact that the patient's constitutional symptoms have become much worse and weakness was noted to be much worse after he was started on gabapentin and Flexeril. Patient was reevaluated today on 02/10/2017, seems to be doing a bit better, he is hemodynamically stable, less shortness of breath and maintained on Lasix for his fluid overload. Did not require any norepinephrine. Cultures of the urine and blood remain negative. CBC is relatively normal except for hemoglobin of 9.2. BUN and creatinine are improving, BUN is 31 creatinine is 1.40 today. Electrolytes are relatively unremarkable. His creatinine on admission was 1.63. Chest x-ray is showing evidence of bilateral pleural effusions, and asbestos associated lung disease. Hence patient will be placed on a maintenance dose of Lasix. Echocardiogram is relatively unremarkable good LV function was noted. patient was reevaluated today on 02/11/2017, apparently overnight the patient has been restless and agitated, and he was given Haldol and Ativan, patient seems to be quite weak on examination today, opens eyes, noted to be a bit tachypneic, but his ABG is relatively unremarkable, is not reflecting a significant hypoxemia and is not reflectng hypercapnia. ABG on 40% showed a pO2 of 73 pCO2 of 35 pH of 7.43. hence I recommended BiPAP, his last x-ray showed mostly findings of asbestos associated lung disease and possibly some component of congestive heart failure. basic metabolic profile is normal. renal profile is relatively normal. blood sugar is 176. On 02/12/2017, patient seems to be doing much better compared to yesterday. He seems to be more awake today, and more appropriate. Chest x-ray however is showing worsening interstitial edema, with underlying asbestos associated lung disease. Possibility of underlying infiltrates is not entirely ruled out, patient could have had an episode of aspiration but again this is felt to be less likely. I feel the findings are mostly findings of interstitial edema. Patient has no white count, and he has no fever. Hence I will go ahead and recommend aggressive diuresis and cut down his IV fluid to KVO. Patient has been on antibiotics all along. Lasix was added today 40 mg IV push every 12 hours. And a follow-up chest x-ray will be reviewed in a.m. Again the findings on the chest x-ray are not findings of pneumonia they are more findings of congestive heart failure. On 02/13/2017, patient continues to do well, obviously he is responding to the combination of diuretics and antibiotics which were given empirically because of his presentation. Patient presented with hypotension requiring fluid boluses and profound weakness. Chest x-ray continues to show significant asbestos associated lung disease, possibility of underlying failure or underlying pneumonia is not entirely ruled out considering his abnormal chest x- ray to begin with. Patient is being treated basically for both. Clinically he is improving. Labs were reviewed WBC count is 9.4 hemoglobin is 9.8 electrolytes are normal BUN is 24 creatinine is 1.24. On 02/14/2017, patient is feeling generally weak, otherwise no specific complaints and no specific symptoms. Labs from today were reviewed, relatively normal CBC and normal basic metabolic profile noted. Creatinine is 1.40. All his medications were reviewed and they seem to be unchanged. Lasix remains at 40 mg every 12 hours. On 02/15/2017, patient is noted to be ambulating with assistance in the hallway, but he remained generally weak, and noted to have dyspnea on exertion. Patient does have history of asbestos associated lung disease and underlying congestive heart failure with possible underlying pneumonia. Remains on diuretics, antibiotics, some improvement overall, but not much. CBC showed normal WBC count hemoglobin was 10.2. Renal profile seems to be worsening with creatinine up to 1.40, hence I will cut down on his diuretics. The dose of Lasix will be cut down by half and now I he will be on 40 mg IV push every 24 hours instead of every 12. Objective - Vital Signs Vital signs: Vital Signs Temp 97 F L 02/15/17 07:50 Pulse 122 H 02/15/17 08:23 Resp 18 02/15/17 07:50 BP 103/50 02/15/17 07:50 Pulse Ox 93 L 02/15/17 08:15 Intake & Output 02/14/17 02/15/17 02/15/17 18:59 06:59 18:59 Intake Total 562 240 Output Total 250 800 Balance 312 -800 240 Weight 81.5 kg Intake: Oral 562 240 Output: Urine 250 800 Other: Voiding Method Toilet Urinal Urinal # Voids 1 1 # Bowel Movements 1 - Exam General: patient is awake, in no form of respiratory distress, seems to be more appropriate today. HEENT: [PERRL. EOMI. No pharyngeal erythema or exudate.] Neck: [No adenopathy.] Cardiac: [Heart regular in rate and rhythm. No S3. No S4. No clicks, rubs. No murmur.] Lungs: Crackles at the bases bilaterally. Abdomen: [No mass. No organomegaly. Bowel sounds presnt and normoactive in all 4 quadrants.] Extremes: [No edema no cyanosis no claudication normal pulses. Weakness bilateral lower extremes mild clubbing is noted. Musculoskeletal: [No joint erythema, edema or tenderness.] Skin: [No rash.] Neurologic: [No lateralizing deficits. CN II - XII grossly intact.] Lymphatic: [No adenopathy.] - Labs CBC & Chem 7: 02/14/17 06:05 02/14/17 06:05 Labs: Abnormal Lab Results - Last 24 Hours (Table) 02/14/17 02/14/17 02/14/17 Range/Units 11:45 16:37 21:02 POC Glucose (mg/dL) 202 H 166 H 182 H (75-99) mg/dL 02/15/17 Range/Units 06:24 POC Glucose (mg/dL) 158 H (75-99) mg/dL Assessment and Plan Plan: Impression: 1 acute presentation of multiple constitutional symptoms mostly symptoms of profound weakness, exact etiology is not clear, however the possibility of sepsis would have to be considered especially with elevated lactic acid, however lactic acid normalized with fluid boluses only. No specific source of infection could be identified, although the presentation was felt to be a presentation of sepsis. I reviewed the chest x-ray, the findings on the chest x -ray are mostly findings of congestive heart failure rather than pneumonia. However pneumonia is not entirely ruled out, remains on antibiotics in the form of Levaquin And the patient will kept on diuretics, however the dose will be cut down to 40 mg IV push daily. Follow-up chest x-ray on outpatient basis postdischarge. 2 asbestos associated lung disease, and suspect some underlying component of congestive heart failure/diastolic dysfunction. 3 acute kidney injury, most likely secondary to hypotension upon presentation. Improving based on the labs on 02/11/2017. 4 possible non-ST elevation myocardial infarction with elevated troponin on presentation, echocardiogram was noted to be relatively unremarkable. Hence we may be dealing with diastolic dysfunction rather than systolic dysfunction. Recommendation: Continue present supportive care measures, continue diuretics. Consider discharge planning in the next 24-48 hours. Time with Patient: Less than 30
[2017-02-15 12:18] LABS: Glucose,Whole Blood 241 mg/dL (75-99)
--- NOTE | 2017-02-15 14:29 | P.PN ---
Subjective Principal diagnosis: CHF This is a pleasant 89-year-old gentleman with a past medical history significant for chronic lung disease, diabetes, hypertension, dyslipidemia, and paroxysmal atrial fibrillation who was admitted to the hospital was acute on chronic respiratory failure secondary to congestive heart failure exacerbation as well as A. fib with RVR. I'll follow-up with him today, he stated that he is feeling slightly better. The shortness of breath is better. I did increase the dose of metoprolol to 50 mg by mouth 3 times a day and the heart rate has been better controlled. I will continue the current dose of metoprolol and Lasix. The patient possibly can be discharged home tomorrow. Objective - Vital Signs Vital signs: Vital Signs Temp 97.8 F 02/15/17 12:19 Pulse 87 02/15/17 12:19 Resp 18 02/15/17 12:19 BP 108/63 02/15/17 12:19 Pulse Ox 93 L 02/15/17 12:19 Intake & Output 02/14/17 02/15/17 02/15/17 18:59 06:59 18:59 Intake Total 562 462 Output Total 250 800 Balance 312 -800 462 Weight 81.5 kg Intake: Oral 562 462 Output: Urine 250 800 Other: Voiding Method Toilet Urinal Urinal # Voids 1 1 # Bowel Movements 1 - Constitutional General appearance: Present: no acute distress - Respiratory Respiratory: bilateral: diminished - Cardiovascular Rhythm: irregularly irregular - Labs CBC & Chem 7: 02/14/17 06:05 02/14/17 06:05 Labs: Abnormal Lab Results - Last 24 Hours (Table) 02/14/17 02/14/17 02/15/17 Range/Units 16:37 21:02 06:24 POC Glucose (mg/dL) 166 H 182 H 158 H (75-99) mg/dL 02/15/17 Range/Units 11:57 POC Glucose (mg/dL) 241 H (75-99) mg/dL Assessment and Plan Plan: Assessment Acute on chronic respiratory failure A. fib with uncontrolled heart rate Congestive heart failure secondary to diastolic dysfunction Multiple comorbidities Plan Continue the current above dose of metoprolol Continue Lasix by mouth Continue monitoring the kidney function and electrolytes Possible discharge home tomorrow morning
--- NOTE | 2017-02-15 14:38 | P.PN ---
Subjective Principal diagnosis: Fatigue shortness of breath 89-year-old male who is a known history of asbestosis was sitting lung disease as well as diabetes, general joint disease and heart disease is having difficulty for the last several weeks. The patient has been to the emergency center several times because of weakness and difficulty with his breathing. January 31 he came to the ER there was a concern to possible urinary infection urinalysis and culture were negative. Computed tomography scan was performed without evidence of acute changes. The patient recently has been following with Dr. Coffey was diagnosed him with prostate cancer. The staging and extent is unclear sensitives are somewhat new diagnosis. He is yet to be treated with any particular chemotherapy agents or hormones yet. After the recent ER visit he was seen by his primary care physician. His back pain was worsening. He constantly was treated with steroids as well as a muscle relaxant. It appears in the days after that he's had a marked change of status. He became weaker unable to navigate and had a fall. Consequently he was brought to Hospital for further intervention. At arrival there is evidence of some hypotension and is concerned for sepsis. He received fluid resuscitation and then needed diuresis because of his underlying cardiac and pulmonary disease. He's been treated with several antibiotics. Patient likely has pneumonia as a source of his sepsis. He was improving already in the last 24 hours. He is now transitioned to oral antibiotic therapy to complete the treatment of his pneumonia. Other than the complaints of chronic back pain there is no acute changes today. Objective - Vital Signs Vital signs: Vital Signs Temp 97.8 F 02/15/17 12:19 Pulse 87 02/15/17 12:19 Resp 18 02/15/17 12:19 BP 108/63 02/15/17 12:19 Pulse Ox 93 L 02/15/17 12:19 Intake & Output 02/14/17 02/15/17 02/15/17 18:59 06:59 18:59 Intake Total 562 462 Output Total 250 800 Balance 312 -800 462 Weight 81.5 kg Intake: Oral 562 462 Output: Urine 250 800 Other: Voiding Method Toilet Urinal Urinal # Voids 1 1 # Bowel Movements 1 - Exam 89-year-old male who is comfortable. Apparently early in the day had difficulty with orientation. Currently knows that he is a [facility] in the new name is [place]. HEENT: Anicteric conjunctiva are pink and moist nasal mucosa grossly intact without significant lesions, there is no thrush. Dentures in place Neck: The neck is supple without significant lymphadenopathy or thyromegaly. Lungs: There is symmetrical air entry. There are crackles and alter breath sounds in the lung zones but has a crunching characteristic no dullness or egophony is noted Heart: Regular rate and rhythm with an audible S1-S2, no S3 positive S4 There is no significant murmur click or rub, PMI was nondisplaced. Abdomen: Positive bowel sounds soft and nontender without palpable masses or organomegaly. There was no guarding or rebound. Extremities: The upper extremities have excellent pulses they are symmetric, no significant petechiae or telangiectasia. No splinter hemorrhages were noted. Trace pedal edema is noted but no lesions are seen Neuro: Awake alert oriented to person place which is improved from earlier today. Was able to follow some simple commands without difficulties. - Labs CBC & Chem 7: 02/14/17 06:05 02/14/17 06:05 Labs: Abnormal Lab Results - Last 24 Hours (Table) 02/14/17 02/14/17 02/15/17 Range/Units 16:37 21:02 06:24 POC Glucose (mg/dL) 166 H 182 H 158 H (75-99) mg/dL 02/15/17 Range/Units 11:57 POC Glucose (mg/dL) 241 H (75-99) mg/dL Laboratory Results WBC 9.7 k/uL (3.8-10.6) 02/14/17 06:05 RBC 3.38 m/uL (4.30-5.90) L 02/14/17 06:05 Hgb 10.2 gm/dL (13.0-17.5) L 02/14/17 06:05 Hct 32.9 % (39.0-53.0) L 02/14/17 06:05 MCV 97.3 fL (80.0-100.0) 02/14/17 06:05 MCH 30.0 pg (25.0-35.0) 02/14/17 06:05 MCHC 30.9 g/dL (31.0-37.0) L 02/14/17 06:05 RDW 13.2 % (11.5-15.5) 02/14/17 06:05 Plt Count 311 k/uL (150-450) 02/14/17 06:05 Neutrophils % 79 % 02/14/17 06:05 Neutrophils % (Manual) 82.0 % 02/09/17 05:06 Band Neutrophils % 3.0 % 02/09/17 05:06 Lymphocytes % 12 % 02/14/17 06:05 Lymphocytes % (Manual) 8.0 % 02/09/17 05:06 Monocytes % 5 % 02/14/17 06:05 Monocytes % (Manual) 7.0 % 02/09/17 05:06 Eosinophils % 2 % 02/14/17 06:05 Basophils % 0 % 02/14/17 06:05 Neutrophils # 7.7 k/uL (1.3-7.7) 02/14/17 06:05 Neutrophils # (Manual) 9.1 k/uL (1.3-7.7) H 02/09/17 05:06 Lymphocytes # 1.1 k/uL (1.0-4.8) 02/14/17 06:05 Lymphocytes # (Manual) 0.9 k/uL (1.0-4.8) L 02/09/17 05:06 Monocytes # 0.4 k/uL (0-1.0) 02/14/17 06:05 Monocytes # (Manual) 0.7 k/uL (0-1.0) 02/09/17 05:06 Eosinophils # 0.2 k/uL (0-0.7) 02/14/17 06:05 Basophils # 0.0 k/uL (0-0.2) 02/14/17 06:05 Nucleated RBCs 0 /100 WBC (0-0) 02/09/17 05:06 Manual Slide Review Performed 02/09/17 05:06 Hypochromasia Slight 02/14/17 06:05 PT 11.0 sec (9.0-12.0) 02/09/17 05:06 INR 1.1 (<1.1) 02/09/17 05:06 APTT 25.2 sec (22.0-30.0) 02/09/17 05:06 Sample Site R Radial 02/11/17 10:15 ABG pH 7.43 (7.35-7.45) 02/11/17 10:15 ABG pCO2 35 mmHg (35-45) 02/11/17 10:15 ABG pO2 73 mmHg (83-108) L 02/11/17 10:15 ABG HCO3 23 mmol/L (21-25) 02/11/17 10:15 ABG Total CO2 24 mmol/L (19-24) 02/11/17 10:15 ABG O2 Saturation 95.0 % (94-97) 02/11/17 10:15 ABG Base Excess -1.1 mmol/L 02/11/17 10:15 FiO2 40 % 02/11/17 10:15 Sodium 142 mmol/L (137-145) 02/14/17 06:05 Potassium 4.3 mmol/L (3.5-5.1) 02/14/17 06:05 Chloride 102 mmol/L (98-107) 02/14/17 06:05 Carbon Dioxide 30 mmol/L (22-30) 02/14/17 06:05 Anion Gap 10 mmol/L 02/14/17 06:05 BUN 27 mg/dL (9-20) H 02/14/17 06:05 Creatinine 1.40 mg/dL (0.66-1.25) H 02/14/17 06:05 Est GFR (MDRD) Af Amer 58 (>60 ml/min/1.73 sqM) 02/14/17 06:05 Est GFR (MDRD) Non-Af 48 (>60 ml/min/1.73 sqM) 02/14/17 06:05 Glucose 142 mg/dL (74-99) H 02/14/17 06:05 POC Glucose (mg/dL) 241 mg/dL (75-99) H 02/15/17 11:57 POC Glu [employer]arer ID Faby Mckeon 02/15/17 11:[address] Glu mg/dL 157 mg/dL 02/09/17 05:06 Hemoglobin A1c 7.1 % (4.2-6.1) H 02/09/17 05:06 Plasma Lactic Acid Renzo 1.4 mmol/L (0.7-2.0) 02/10/17 23:34 Calcium 8.4 mg/dL (8.4-10.2) 02/14/17 06:05 Phosphorus 3.6 mg/dL (2.5-4.5) 02/14/17 06:05 Magnesium 2.0 mg/dL (1.6-2.3) 02/14/17 06:05 Total Bilirubin 0.7 mg/dL (0.2-1.3) 02/09/17 05:06 AST 43 U/L (17-59) 02/09/17 05:06 ALT 38 U/L (21-72) 02/09/17 05:06 Alkaline Phosphatase 46 U/L (38-126) 02/09/17 05:06 Troponin I 0.123 ng/mL (0.000-0.034) H* 02/09/17 14:28 NT-Pro-B Natriuret Pep 4500 pg/mL 02/09/17 05:06 Total Protein 6.1 g/dL (6.3-8.2) L 02/09/17 05:06 Albumin 3.3 g/dL (3.5-5.0) L 02/09/17 05:06 Urine Color Yellow 02/09/17 06:05 Urine Appearance Cloudy (Clear) 02/09/17 06:05 Urine pH 5.0 (5.0-8.0) 02/09/17 06:05 Ur Specific [place] 1.012 (1.001-1.035) 02/09/17 06:05 Urine Protein 1+ (Negative) H 02/09/17 06:05 Urine Glucose (UA) Negative (Negative) 02/09/17 06:05 Urine Ketones Negative (Negative) 02/09/17 06:05 Urine Blood Moderate (Negative) H 02/09/17 06:05 Urine Nitrite Negative (Negative) 02/09/17 06:05 Urine Bilirubin Negative (Negative) 02/09/17 06:05 Urine Urobilinogen <2.0 mg/dL (<2.0) 02/09/17 06:05 Ur Leukocyte Esterase Negative (Negative) 02/09/17 06:05 Urine RBC 2 /hpf (0-5) 02/09/17 06:05 Ur Squamous Epith Cells 1 /hpf (0-4) 02/09/17 06:05 Amorphous Sediment Rare /hpf (None) H 02/09/17 06:05 Granular Casts 157 /lpf (0) 02/09/17 06:05 Urine Mucus Rare /hpf (None) H 02/09/17 06:05 Vancomycin Trough 11.2 ug/mL 02/12/17 05:25 Microbiology 02/09/17 05:06 Blood Blood Culture - Final No Growth after 144 hours 02/09/17 06:05 Urine,Voided Urine Culture - Final Assessment and Plan (1) Pneumonia Narrative/Plan: 89-year-old male who is extensive medical troubles that include diabetes heart disease as well as asbestosis presents to Hospital with significant weakness and fall. Patient been treated with significant medications that included a burst of prednisone as well as gabapentin and Flexeril. He then had a marked alteration of his mental status with falls. Presented hospital and was resuscitated. Now doing considerably better and appears to be even better this evening and he was earlier in the day. His lactic acidosis and acute renal failure have all improved. And overall is having improvement further today. Concerned underlying pneumonia given his significant underlying lung disease is receiving alterable antibiotics at this point in time with his penicillin ALLERGY. There does seem to be a significant improvement and would continue current antibiotics while cultures are in process. Likely transition to single agent levofloxacin and the next day if he continues to have improvement. His anemia has worsened over time. It is not likely that his recent diagnosis of prostate cancer is directly influence the issue however is unclear if that is relating to his back pain and await any further information about the workup that's been done regarding that. Current urine and blood cultures are negative it is unlikely his urinary infection since we do have 2 recent urine cultures are both negative. No evidence of bacteremia at this time. Likely pneumonia and is being treated with levofloxacin with ongoing improvement. Chronic back pain as noted per the family. Will follow up with urology after discharge Continue ongoing supportive care. Status: Acute (2) Asbestosis Status: Acute (3) Medication-induced delirium, acute, hypoactive Status: Acute
[2017-02-15 16:59] LABS: Glucose,Whole Blood 147 mg/dL (75-99)
[2017-02-15] MEDS: MELATONIN 5 MG TABLET PO SCH (21:22)
[2017-02-15] MEDS: ATORVASTATIN 20 MG TAB PO SCH (21:22)
[2017-02-15] MEDS: OXYBUTYNIN CHLORIDE 5 MG TAB PO SCH (21:23)
[2017-02-15 21:29] LABS: Glucose,Whole Blood 174 mg/dL (75-99)
[2017-02-15] MEDS: Acetaminophen-Codeine 300-30mg TAB PO PRN (21:33)
[2017-02-16] MEDS: HYDROcodone/APAP 5-325MG 1 EACH TAB PO PRN (05:47)
[2017-02-16] MEDS: INSULIN LISPRO (humaLOG) 300 UNIT/3 ML VIAL SQ SCH ×2 (05:49→12:13)
[2017-02-16 05:50] LABS: Glucose,Whole Blood 141 mg/dL (75-99)
[2017-02-16] MEDS: IPRATROPIUM-ALBUTEROL 3 ML NEB INHALATION SCH ×3 (08:15→15:44)
[2017-02-16] MEDS ORDERED: FUROSEMIDE 40 MG TAB PO SCH (09:00)
[2017-02-16] MEDS ORDERED: FUROSEMIDE 10 MG/ML 4 ML VIAL IV SCH (09:00)
[2017-02-16 09:11] LABS: Potassium 3.8 mmol/L (3.5-5.1)
[2017-02-16 09:42] VITALS: RESP 16; TEMP 97.8
[2017-02-16] MEDS: HEPARIN SODIUM,PORCINE 5,000 UNIT/ML 1 ML VIAL SQ SCH (09:49)
[2017-02-16] MEDS: AMIODARONE 200 MG TAB PO SCH (09:49)
[2017-02-16] MEDS: SODIUM CHLORIDE 0.9% 1,000 ML IV SCH (09:49)
[2017-02-16] MEDS: ASPIRIN 81 MG CHEW PO SCH (09:49)
[2017-02-16] MEDS: FAMOTIDINE 20 MG TAB PO SCH (09:49)
[2017-02-16] MEDS ORDERED: POTASSIUM CHLORIDE ER 20 MEQ TAB.ER PO SCH ×2 (10:00→14:00)
[2017-02-16 11:03] VITALS: BMI 22.2
[2017-02-16 11:58] LABS: Glucose,Whole Blood 204 mg/dL (75-99)
[2017-02-16 12:12] VITALS: BP 106/55
[2017-02-16] MEDS: VALSARTAN 80 MG TAB PO SCH (12:14)
[2017-02-16] MEDS: METOPROLOL TARTRATE 50 MG TAB PO SCH (12:14)
--- NOTE | 2017-02-16 12:17 | P.DS ---
Providers Date of admission: 02/09/17 07:03 Expected date of discharge: 02/16/17 Attending physician: Venu Hadley Consults: 02/09/17 07:24 Consult Physician Stat Consulting Provider: Mohinder Sanchez Consult Reason/Comments: Pneumonia, sepsis Do you want consulting provider notified?: Yes 02/09/17 12:03 Consult Physician Urgent Consulting Provider: Deniz Denton Consult Reason/Comments: ELEVATED TROPONIN AND BNP Do you want consulting provider notified?: Yes 02/10/17 17:08 Consult Physician Urgent Consulting Provider: Michael Correa Consult Reason/Comments: bilateral leg weakness Do you want consulting provider notified?: Yes 02/11/17 14:20 Consult Physician Urgent Consulting Provider: Robby Barroso Consult Reason/Comments: sepsis, fever Do you want consulting provider notified?: Yes Primary care physician: Venu Hadley Hospital Course: Patient is an 89-year-old white male, patient of Dr. Hadley in the outpatient setting, with a medical history significant for diabetes, degenerative joint disease, hypertension, coronary artery disease with previous stent placement, recent diagnosis of prostate cancer, paroxysmal atrial fibrillation, and chronic back pain. Patient was recently placed on Neurontin and Flexeril and prednisone taper for back pain. Patient presented to the emergency department with chief complaints of weakness and inability to walk. Patient was found to have evidence of elevated lactic acid and hypotension and was treated for sepsis with fluids and broad-spectrum antibiotics with underlying course of sepsis likely being pneumonia. Patient did have slightly elevated troponins and elevated BNP and consult to cardiology was requested. Patient was originally admitted to the intensive care unit with consult requested for Dr. Barroso from infectious disease service, cardiology, and Dr. Hartley from pulmonary service. Patient improved and was transferred to selective care unit. Patient did develop an episode of metabolic encephalopathy requiring chemical and physical restraints requiring BiPAP support after patient became minimally responsive. Patient improved mentally but did develop atrial fibrillation with RVR and was started on amiodarone and metoprolol for better rate control. Patient continued to improve during his hospital stay and was deemed stable for transfer to [facility] for subacute rehab with close follow-up in the outpatient setting. Pertinent Studies: EKG; chest x-ray; echocardiogram with Doppler Patient Condition at Discharge: Good Plan - Discharge Summary New Discharge Prescriptions: Acetaminophen-Codeine 300-30mg [Tylenol w/codeine #3] 1 tab PO Q6H PRN #28 tab PRN Reason: Pain HYDROcodone/APAP 5-325MG [[place] 5-325] 1 tab PO TID PRN #21 tab PRN Reason: Pain Discharge Medication List Atorvastatin [Lipitor] 20 mg PO HS 01/24/17 [History] Melatonin 5 mg PO HS 01/24/17 [History] Oxybutynin Chloride [Ditropan] 5 mg PO HS 01/24/17 [History] Valsartan [Diovan] 80 mg PO DAILY 01/24/17 [History] metFORMIN HCL [Glucophage] 1,000 mg PO BID 01/24/17 [History] Aspirin [Adult Low Dose Aspirin EC] 81 mg PO DAILY 02/09/17 [History] Acetaminophen-Codeine 300-30mg [Tylenol w/codeine #3] 1 tab PO Q6H PRN #28 tab 02/16/17 [Rx] Amiodarone [Cordarone] 400 mg PO BID tab 02/16/17 [Rx] Bisacodyl [Dulcolax] 5 mg PO BID PRN #0 tablet.dr 02/16/17 [Rx] Furosemide [Lasix] 40 mg PO DAILY tab 02/16/17 [Rx] HYDROcodone/APAP 5-325MG [[place] 5-325] 1 tab PO TID PRN #21 tab 02/16/17 [Rx] INSULIN LISPRO (humaLOG) [humaLOG (formulary)] 0 unit SQ ACHS vial 02/16/17 [Rx ] Ipratropium-Albuterol Nebulize [Duoneb 0.5 mg-3 mg/3 ml Soln] 3 ml INHALATION RT -QID ampul.neb 02/16/17 [Rx] Levofloxacin [Levaquin] 750 mg PO Q48H #3 tab 02/16/17 [Rx] Metoprolol Tartrate [Lopressor] 50 mg PO TID tab 02/16/17 [Rx] Follow up Appointment(s)/Referral(s): Harriet Hartley MD [STAFF PHYSICIAN] - 1 Week Deniz Denton MD [STAFF PHYSICIAN] - 1 Week Venu Hadley MD [Primary Care Provider] - 1-2 days Discharge Disposition: TRANSFER TO SNF/ECF
[2017-02-16 12:37] VITALS: PULSE 75
--- NOTE | 2017-02-16 14:09 | P.PN ---
Subjective This is an 89-year-old gentleman with history of coronary artery disease and prior stenting of the circumflex in 2008, diabetes, hypertension, paroxysmal atrial fibrillation, hyperlipidemia, family history of premature coronary artery disease, he follows with Dr. Killian in the office. Patient presents to the hospital primarily with symptoms of progressively worsening weakness to the point where he is unable to walk. He was brought to the emergency room by EMS. Initial CBC on presentation was relatively normal, BUN on admission 44, creatinine 1.6. Lactic acid was 4.6. BNP level on admission 4500, troponins 0.12, 0.10. EKG on admission showed sinus tachycardia. 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 And bilateral pleural effusions. He was originally admitted to the ICU with suspicion of possible sepsis and empirically started on antibiotics as well as IV fluids. Urine and blood cultures negative. Hemoglobin 9.7. Patient was diuresed with Lasix in the intensive care unit. Echocardiogram with Doppler study was performed which revealed an ejection fraction of 55-60%. Cardiology consultation was requested because of abnormal troponin values. Troponin values not consistent with acute coronary syndrome, likely secondary to oxygen supply and demand mismatch. Would recommend to continue IV antibiotics for treatment of sepsis. Patient's heart rate overall has been improved today, at times it spikes but overall stay in the 90s to low 100s. Arrangements are being made for him to be transferred to [facility] today. Creatinine is 1.6 IV Lasix has been discontinued and the patient will be discharged home on a daily dose of by mouth Lasix. Objective - Vital Signs Vital signs: Vital Signs Temp 97.8 F 02/16/17 09:40 Pulse 75 02/16/17 12:16 Resp 16 02/16/17 11:00 BP 106/55 02/16/17 11:00 Pulse Ox 88 L 02/16/17 12:16 Intake & Output 02/15/17 02/16/17 02/16/17 18:59 06:59 18:59 Intake Total 462 Output Total 750 Balance 462 -750 Weight 72.3 kg 72.3 kg Intake: Oral 462 Output: Urine 750 Other: Voiding Method Urinal Urinal Urinal # Voids 1 # Bowel Movements 1 - Exam PHYSICAL EXAMINATION: HEENT: Head is atraumatic, normocephalic. Pupils equal, round. Neck is supple. There is no elevated jugular venous pressure. HEART EXAMINATION: Heart S1, S2 normal. No murmur or gallop heard. CHEST EXAMINATION: Lungs reveal crackles bilaterally to the posterior bases. ABDOMEN: Soft, nontender. Bowel sounds are heard. No organomegaly noted. EXTREMITIES: 2+ peripheral pulses with no evidence of peripheral edema and no calf tenderness noted. NEUROLOGIC patient is awake, alert and oriented -3. . - Labs CBC & Chem 7: 02/14/17 06:05 02/16/17 12:27 Labs: Abnormal Lab Results - Last 24 Hours (Table) 02/15/17 02/15/17 02/16/17 Range/Units 16:52 21:26 05:49 BUN (9-20) mg/dL Creatinine (0.66-1.25) mg/dL Glucose (74-99) mg/dL POC Glucose (mg/dL) 147 H 174 H 141 H (75-99) mg/dL Calcium (8.4-10.2) mg/dL 02/16/17 02/16/17 Range/Units 08:46 11:57 BUN 34 H (9-20) mg/dL Creatinine 1.66 H (0.66-1.25) mg/dL Glucose 244 H (74-99) mg/dL POC Glucose (mg/dL) 204 H (75-99) mg/dL Calcium 8.0 L (8.4-10.2) mg/dL Assessment and Plan Plan: Assessment and Plan #1 profound weakness, likely secondary to sepsis. #2 abnormal troponins, not consistent with acute coronary syndrome, likely secondary to oxygen supply and demand mismatch. Echocardiogram with Doppler study was performed which revealed normal left ventricular systolic function. Most recent Lexiscan stress test was performed at the end of October which was reported to be negative for any reversible ischemia. #3 asbestosis and associated lung disease #4 diabetes #5 hypertension #6 hyperlipidemia #7 known history of coronary artery disease with prior stent placement in the circumflex in 2008 #8 paroxysmal atrial fibrillation, not on anticoagulation because of falls #9 diastolic congestive heart failure acute on chronic Plan Patient will be transferred to [facility] today. We will make him a follow-up appointment in the office post discharge. DNP note has been reviewed, I agree with a documented findings and plan of care. Patient was seen and examined.
--- NOTE | 2017-02-16 20:56 | PN ---
This is an 89-year-old gentleman with a history of asbestos-associated lung disease as well as heart failure. He also may have underlying pneumonia. He is doing relatively well. The patient apparently was seen by the primary service and he may be discharged here today or tomorrow. The primary service is Dr. Hadley. Currently his vital signs are stable, including temperature 97.8, heart rate 75, respiratory rate 16, blood pressure 106/55 with a mean of 72 and a room-air saturation of 94%. Appears in no acute distress. HEENT examination is grossly unremarkable. Mucous membranes are moist. No oral lesions. NECK: Supple. Full range of motion. No adenopathy or thyromegaly. Cardiovascular examination reveals regular rhythm and rate. S1, S2 normal. No murmur. Lungs reveal a few scattered bibasilar crackles. No wheezes or rhonchi. ABDOMEN: Soft. Bowel sounds are heard. EXTREMITIES: Intact. Labs are reviewed. Sodium 140, potassium 3.9, chloride 99, CO2 of 29. BUN and creatinine were 34 and 1.66. No recent x-rays to report. Medications are reviewed. ASSESSMENT: 1. Congestive heart failure. 2. Possible sepsis syndrome secondary to pneumonia. 3. Asbestos-associated lung disease. 4. Acute kidney injury. 5. Possible [id number]-elevation myocardial infarction. PLAN: Patient may be discharged home in the next 24 to 48 hours. No additional recommendations are made. Will continue to follow. Prognosis is guarded.
--- NOTE | 2017-02-16 21:58 | P.PN ---
Subjective Principal diagnosis: Fatigue shortness of breath 89-year-old male who is a known history of asbestosis was sitting lung disease as well as diabetes, general joint disease and heart disease is having difficulty for the last several weeks. The patient has been to the emergency center several times because of weakness and difficulty with his breathing. January 31 he came to the ER there was a concern to possible urinary infection urinalysis and culture were negative. Computed tomography scan was performed without evidence of acute changes. The patient recently has been following with Dr. Coffey was diagnosed him with prostate cancer. The staging and extent is unclear sensitives are somewhat new diagnosis. He is yet to be treated with any particular chemotherapy agents or hormones yet. After the recent ER visit he was seen by his primary care physician. His back pain was worsening. He constantly was treated with steroids as well as a muscle relaxant. It appears in the days after that he's had a marked change of status. He became weaker unable to navigate and had a fall. Consequently he was brought to Hospital for further intervention. At arrival there is evidence of some hypotension and is concerned for sepsis. He received fluid resuscitation and then needed diuresis because of his underlying cardiac and pulmonary disease. He's been treated with several antibiotics. Patient likely has pneumonia as a source of his sepsis. He was improving already in the last 24 hours. He is now transitioned to oral antibiotic therapy to complete the treatment of his pneumonia. Other than the complaints of chronic back pain there is no acute changes today. Objective - Vital Signs Vital signs: Vital Signs Temp 97.8 F 02/16/17 09:40 Pulse 75 02/16/17 12:16 Resp 16 02/16/17 11:00 BP 106/55 02/16/17 11:00 Pulse Ox 88 L 02/16/17 12:16 Intake & Output 02/16/17 02/16/17 02/17/17 06:59 18:59 06:59 Output Total 750 Balance -750 Weight 72.3 kg 72.3 kg Output: Urine 750 Other: Voiding Method Urinal Urinal # Voids 1 3 - Exam 89-year-old male who is comfortable. Apparently early in the day had difficulty with orientation. Currently knows that he is a [facility] in the new name is [facility]. HEENT: Anicteric conjunctiva are pink and moist nasal mucosa grossly intact without significant lesions, there is no thrush. Dentures in place Neck: The neck is supple without significant lymphadenopathy or thyromegaly. Lungs: There is symmetrical air entry. There are crackles and alter breath sounds in the lung zones but has a crunching characteristic no dullness or egophony is noted Heart: Regular rate and rhythm with an audible S1-S2, no S3 positive S4 There is no significant murmur click or rub, PMI was nondisplaced. Abdomen: Positive bowel sounds soft and nontender without palpable masses or organomegaly. There was no guarding or rebound. Extremities: The upper extremities have excellent pulses they are symmetric, no significant petechiae or telangiectasia. No splinter hemorrhages were noted. Trace pedal edema is noted but no lesions are seen Neuro: Awake alert oriented to person place which is improved from earlier today. Was able to follow some simple commands without difficulties. - Labs CBC & Chem 7: 02/14/17 06:05 02/16/17 12:27 Labs: Abnormal Lab Results - Last 24 Hours (Table) 02/16/17 02/16/17 02/16/17 Range/Units 05:49 08:46 11:57 BUN 34 H (9-20) mg/dL Creatinine 1.66 H (0.66-1.25) mg/dL Glucose 244 H (74-99) mg/dL POC Glucose (mg/dL) 141 H 204 H (75-99) mg/dL Calcium 8.0 L (8.4-10.2) mg/dL Laboratory Results WBC 9.7 k/uL (3.8-10.6) 02/14/17 06:05 RBC 3.38 m/uL (4.30-5.90) L 02/14/17 06:05 Hgb 10.2 gm/dL (13.0-17.5) L 02/14/17 06:05 Hct 32.9 % (39.0-53.0) L 02/14/17 06:05 MCV 97.3 fL (80.0-100.0) 02/14/17 06:05 MCH 30.0 pg (25.0-35.0) 02/14/17 06:05 MCHC 30.9 g/dL (31.0-37.0) L 02/14/17 06:05 RDW 13.2 % (11.5-15.5) 02/14/17 06:05 Plt Count 311 k/uL (150-450) 02/14/17 06:05 Neutrophils % 79 % 02/14/17 06:05 Neutrophils % (Manual) 82.0 % 02/09/17 05:06 Band Neutrophils % 3.0 % 02/09/17 05:06 Lymphocytes % 12 % 02/14/17 06:05 Lymphocytes % (Manual) 8.0 % 02/09/17 05:06 Monocytes % 5 % 02/14/17 06:05 Monocytes % (Manual) 7.0 % 02/09/17 05:06 Eosinophils % 2 % 02/14/17 06:05 Basophils % 0 % 02/14/17 06:05 Neutrophils # 7.7 k/uL (1.3-7.7) 02/14/17 06:05 Neutrophils # (Manual) 9.1 k/uL (1.3-7.7) H 02/09/17 05:06 Lymphocytes # 1.1 k/uL (1.0-4.8) 02/14/17 06:05 Lymphocytes # (Manual) 0.9 k/uL (1.0-4.8) L 02/09/17 05:06 Monocytes # 0.4 k/uL (0-1.0) 02/14/17 06:05 Monocytes # (Manual) 0.7 k/uL (0-1.0) 02/09/17 05:06 Eosinophils # 0.2 k/uL (0-0.7) 02/14/17 06:05 Basophils # 0.0 k/uL (0-0.2) 02/14/17 06:05 Nucleated RBCs 0 /100 WBC (0-0) 02/09/17 05:06 Manual Slide Review Performed 02/09/17 05:06 Hypochromasia Slight 02/14/17 06:05 PT 11.0 sec (9.0-12.0) 02/09/17 05:06 INR 1.1 (<1.1) 02/09/17 05:06 APTT 25.2 sec (22.0-30.0) 02/09/17 05:06 Sample Site R Radial 02/11/17 10:15 ABG pH 7.43 (7.35-7.45) 02/11/17 10:15 ABG pCO2 35 mmHg (35-45) 02/11/17 10:15 ABG pO2 73 mmHg (83-108) L 02/11/17 10:15 ABG HCO3 23 mmol/L (21-25) 02/11/17 10:15 ABG Total CO2 24 mmol/L (19-24) 02/11/17 10:15 ABG O2 Saturation 95.0 % (94-97) 02/11/17 10:15 ABG Base Excess -1.1 mmol/L 02/11/17 10:15 FiO2 40 % 02/11/17 10:15 Sodium 140 mmol/L (137-145) 02/16/17 08:46 Potassium 3.9 mmol/L (3.5-5.1) 02/16/17 12:27 Chloride 99 mmol/L (98-107) 02/16/17 08:46 Carbon Dioxide 29 mmol/L (22-30) 02/16/17 08:46 Anion Gap 12 mmol/L 02/16/17 08:46 BUN 34 mg/dL (9-20) H 02/16/17 08:46 Creatinine 1.66 mg/dL (0.66-1.25) H 02/16/17 08:46 Est GFR (MDRD) Af Amer 48 (>60 ml/min/1.73 sqM) 02/16/17 08:46 Est GFR (MDRD) Non-Af 39 (>60 ml/min/1.73 sqM) 02/16/17 08:46 Glucose 244 mg/dL (74-99) H 02/16/17 08:46 POC Glucose (mg/dL) 204 mg/dL (75-99) H 02/16/17 11:57 POC Glu Auto [employer]ane Driver ID [place] 02/16/17 11:[address] Glu mg/dL 157 mg/dL 02/09/17 05:06 Hemoglobin A1c 7.1 % (4.2-6.1) H 02/09/17 05:06 Plasma Lactic Acid Renzo 1.4 mmol/L (0.7-2.0) 02/10/17 23:34 Calcium 8.0 mg/dL (8.4-10.2) L 02/16/17 08:46 Phosphorus 3.6 mg/dL (2.5-4.5) 02/14/17 06:05 Magnesium 2.0 mg/dL (1.6-2.3) 02/14/17 06:05 Total Bilirubin 0.7 mg/dL (0.2-1.3) 02/09/17 05:06 AST 43 U/L (17-59) 02/09/17 05:06 ALT 38 U/L (21-72) 02/09/17 05:06 Alkaline Phosphatase 46 U/L (38-126) 02/09/17 05:06 Troponin I 0.123 ng/mL (0.000-0.034) H* 02/09/17 14:28 NT-Pro-B Natriuret Pep 4500 pg/mL 02/09/17 05:06 Total Protein 6.1 g/dL (6.3-8.2) L 02/09/17 05:06 Albumin 3.3 g/dL (3.5-5.0) L 02/09/17 05:06 Urine Color Yellow 02/09/17 06:05 Urine Appearance Cloudy (Clear) 02/09/17 06:05 Urine pH 5.0 (5.0-8.0) 02/09/17 06:05 Ur Specific Keeler 1.012 (1.001-1.035) 02/09/17 06:05 Urine Protein 1+ (Negative) H 02/09/17 06:05 Urine Glucose (UA) Negative (Negative) 02/09/17 06:05 Urine Ketones Negative (Negative) 02/09/17 06:05 Urine Blood Moderate (Negative) H 02/09/17 06:05 Urine Nitrite Negative (Negative) 02/09/17 06:05 Urine Bilirubin Negative (Negative) 02/09/17 06:05 Urine Urobilinogen <2.0 mg/dL (<2.0) 02/09/17 06:05 Ur Leukocyte Esterase Negative (Negative) 02/09/17 06:05 Urine RBC 2 /hpf (0-5) 02/09/17 06:05 Ur Squamous Epith Cells 1 /hpf (0-4) 02/09/17 06:05 Amorphous Sediment Rare /hpf (None) H 02/09/17 06:05 Granular Casts 157 /lpf (0) 02/09/17 06:05 Urine Mucus Rare /hpf (None) H 02/09/17 06:05 Vancomycin Trough 11.2 ug/mL 02/12/17 05:25 Microbiology 02/09/17 05:06 Blood Blood Culture - Final No Growth after 144 hours 02/09/17 06:05 Urine,Voided Urine Culture - Final Assessment and Plan (1) Pneumonia Narrative/Plan: 89-year-old male who is extensive medical troubles that include diabetes heart disease as well as asbestosis presents to Hospital with significant weakness and fall. Patient been treated with significant medications that included a burst of prednisone as well as gabapentin and Flexeril. He then had a marked alteration of his mental status with falls. Presented hospital and was resuscitated. Now doing considerably better and appears to be even better this evening and he was earlier in the day. His lactic acidosis and acute renal failure have all improved. And overall is having improvement further today. Concerned underlying pneumonia given his significant underlying lung disease is receiving alterable antibiotics at this point in time with his penicillin ALLERGY. There does seem to be a significant improvement and would continue current antibiotics while cultures are in process. Likely transition to single agent levofloxacin and the next day if he continues to have improvement. His anemia has worsened over time. It is not likely that his recent diagnosis of prostate cancer is directly influence the issue however is unclear if that is relating to his back pain and await any further information about the workup that's been done regarding that. Current urine and blood cultures are negative it is unlikely his urinary infection since we do have 2 recent urine cultures are both negative. No evidence of bacteremia at this time. Likely pneumonia and is being treated with levofloxacin with ongoing improvement.complete 7 days of Levaquin. Going to the extended care facility today Chronic back pain as noted per the family. Will follow up with urology after discharge Continue ongoing supportive care. Status: Acute (2) Asbestosis Status: Acute (3) Medication-induced delirium, acute, hypoactive Status: Acute
== END 2017-02-16 16:30 | DRG 871 ==
LOC: EC 04:54 → 6ICU 07:03 → 6SEL 02-10 11:05
PROVIDERS: ADMIT Family Medicine; ATTEND Family Medicine
DX: A41.9 Sepsis, unspecified organism (principal); G93.41 Metabolic encephalopathy; J96.21 Acute and chronic respiratory failure with hypoxia; I50.33 Acute on chronic diastolic (congestive) heart failure; N17.9 Acute kidney failure, unspecified; J18.9 Pneumonia, unspecified organism; E87.2 Acidosis; I11.0 Hypertensive heart disease with heart failure; I48.0 Paroxysmal atrial fibrillation; E11.9 Type 2 diabetes mellitus without complications; D64.9 Anemia, unspecified; F19.921 Other psychoactive substance use, unspecified with intoxication with delirium; E78.5 Hyperlipidemia, unspecified; G89.29 Other chronic pain; I25.10 Atherosclerotic heart disease of native coronary artery without angina pectoris; J61 Pneumoconiosis due to asbestos and other mineral fibers; K57.30 Diverticulosis of large intestine without perforation or abscess without bleeding; M15.9 Polyosteoarthritis, unspecified; Z96.1 Presence of intraocular lens; Z96.612 Presence of left artificial shoulder joint; N40.0 Benign prostatic hyperplasia without lower urinary tract symptoms; Z95.5 Presence of coronary angioplasty implant and graft; Z78.1 Physical restraint status; Z79.82 Long term (current) use of aspirin; Z79.899 Other long term (current) drug therapy; Z82.49 Family history of ischemic heart disease and other diseases of the circulatory system; Z85.46 Personal history of malignant neoplasm of prostate; Z85.828 Personal history of other malignant neoplasm of skin; Z87.891 Personal history of nicotine dependence; Z88.0 Allergy status to penicillin; Z98.41 Cataract extraction status, right eye; Z98.42 Cataract extraction status, left eye; Z79.84 Long term (current) use of oral hypoglycemic drugs; Z88.6 Allergy status to analgesic agent
CPT/HCPCS: 36415; 36600; 71010; 71020; 80048; 80053; 80202; 81001; 82805; 83036; 83605; 83735; 83880; 84100; 84132; 84484; 85025; 85610; 85730; 87040; 87086; 93005; 93306; 94640; 94760; 96361; 96365; 96367; 96375; 99285

== ENCOUNTER → 2017-04-03 | Outpatient (CLI) | payer MEDICARE ==
--- NOTE | 2017-04-03 16:46 | CT ---
EXAMINATION TYPE: CT pelvis wo con DATE OF EXAM: 04/03/2017 COMPARISON: 01/31/2017 HISTORY: Pelvic mass. Pt states of prostate CA. CT DLP: 411.6 mGycm Automated exposure control for dose reduction was used. FINDINGS: There are numerous diverticula in the sigmoid colon. I see no sign of diverticulitis. There is athero sclerotic vascular calcification in the pelvis. Prostate is enlarged. Bladder distends smoothly. Ther e is no sign of pelvic lymphadenopathy. There is no free fluid. There are spondylotic changes in the lower lumbar spine. There is hypertrophic degenerative changes in both hip joints. There is facet art hropathy in the lower lumbar spine. I see no fracture. There is moderate hypertrophic anterior bridgi ng osteophyte formation in the lower lumbar spine. I see no intestinal wall thickening. Prostate is e nlarged on the left side more than the right extending into the urinary bladder. IMPRESSION: COLONIC DIVERTICULOSIS WITHOUT DIVERTICULITIS. HYPERTROPHIC OSTEOARTHRITIS. ATHEROSCLEROTIC VASCULAR DISEASE. ASYMMETRIC ENLARGEMENT OF THE PROSTATE GLAND CONSISTENT WITH TUMOR. THERE IS OVERALL NO RILEY GE COMPARED TO LAST CT SCAN OF 01/31/2017. NORMAL APPENDIX. MODERATE SPONDYLOSIS IN THE LOWER LUMBAR S PINE.
== END | disposition home or self-care (01) ==
LOC: RADCTMAIN 14:27
PROVIDERS: ATTEND Urology
DX: K57.30 Diverticulosis of large intestine without perforation or abscess without bleeding (principal); N40.0 Benign prostatic hyperplasia without lower urinary tract symptoms; I70.8 Atherosclerosis of other arteries
CPT/HCPCS: 36415; 72192; 82565; 84520

== ENCOUNTER → 2017-07-02 | Outpatient (CLI) | payer MEDICARE ==
[2017-07-02 09:29] LABS: Basophils % (A) 0 %; CH 31.4; CHCM 33.3; Eosinophils # (A) 0.3 k/uL (0-0.7); Eosinophils % (A) 4 %; HCT 31.7 % (39.0-53.0); HGB 10.6 gm/dL (13.0-17.5); Luc # (Auto) 0.17; Luc % (Auto) 3; Lymphocytes # (A) 2.1 k/uL (1.0-4.8); Lymphocytes % (A) 31 %; MCH 31.8 pg (25.0-35.0); MCHC 33.5 g/dL (31.0-37.0); MCV 94.9 fL (80.0-100.0); Mean Platelet Volume 9.9; Monocytes # (A) 0.6 k/uL (0-1.0); Monocytes % (A) 8 %; Neutrophils # (A) 3.7 k/uL (1.3-7.7); Neutrophils % (A) 54 %; RBC 3.34 m/uL (4.30-5.90); RDW 13.3 % (11.5-15.5); WBC 6.9 k/uL (3.8-10.6); WBC (Perox) 7.22
[2017-07-02 10:07] LABS: Calcium 8.9 mg/dL (8.4-10.2); Potassium 4.9 mmol/L (3.5-5.1)
== END | disposition home or self-care (01) ==
LOC: LABWHC1 07-01 15:42
PROVIDERS: ATTEND Family Medicine
DX: M25.551 Pain in right hip (principal); M54.5 Low back pain; M79.1 Myalgia
CPT/HCPCS: 36415; 80048; 82550; 85025